=== PATIENT | female | born 1965 | race Caucasian/White ===

== ENCOUNTER 2018-10-25 11:33 | Emergency (ER) | payer SELFPAY ==
[2018-10-25] MEDS ORDERED: IPRATROPIUM/ALBUTEROL 0.5-2.5 MG/3 ML AMPUL NEB ONE (11:57)
[2018-10-25] MEDS ORDERED: LIDOCAINE 1% INJ-PF (10 MG/ML) 30 ML SDV NEB ONE (11:57)
[2018-10-25] MEDS ORDERED: PREDNISONE 20 MG TABLET PO ONE (11:58)
--- NOTE | 2018-10-25 12:08 | ER Document Report ---
ED General - General Chief Complaint: Cough Stated Complaint: DIFFICULTY BREATHING Time Seen by Provider: 10/25/18 11:57 Primary Care Provider: ALINA MARIO [Primary Care Provider] - Follow up as needed TRAVEL OUTSIDE OF THE [place] IN LAST 30 DAYS: No - HPI Patient complains to provider of: Cough difficulty breathing Notes: Patient coming in for evaluation of cough difficulty breathing. Patient states ongoing for approximately a week no fevers. P patient states no recent antibiotics. Patient states she has taken the prednisone at home that she had l jonelle around. Patient denies any recent travel patient states she has been smoking since she was 16 however has stopped in the last week. Patient states no flu shots. Patient otherwise resting comfortably upon being evaluated in ER no signs of air hunger no signs of respiratory distress. - Related Data Allergies/Adverse Reactions: acetaminophen [From Vicodin] Allergy (Verified 10/25/18 11:56) hydrocodone [From Vicodin] Allergy (Verified 10/25/18 11:56) Past Medical History - Social History Smoking Status: Current Every Day Smoker Family History: Reviewed & Not Pertinent Patient has suicidal ideation: No Patient has homicidal ideation: No Renal/ Medical History: Denies: Hx Peritoneal Dialysis Review of Systems - Review of Systems Constitutional: No symptoms reported EENT: No symptoms reported Cardiovascular: No symptoms reported Respiratory: Cough, Short of breath Gastrointestinal: No symptoms reported Genitourinary: No symptoms reported Female Genitourinary: No symptoms reported Musculoskeletal: No symptoms reported Skin: No symptoms reported Hematologic/Lymphatic: No symptoms reported Neurological/Psychological: No symptoms reported Physical Exam - Vital signs Vitals: Temp Pulse Resp BP Pulse Ox 99.1 F 68 20 177/96 H 95 10/25/18 11:41 10/25/18 11:41 10/25/18 11:41 10/25/18 11:41 10/25/18 11:41 Course - Re-evaluation Re-evalutation: 10/25/18 15:09 Chest x-ray showed no sign pneumonia flu test did return positive for flu type A. Recommend the patient stop smoking continue with prednisone for her underlying wheezing albuterol for difficulty breathing and wheezing as well. Patient was given a list of primary care physicians is to return to ER if symptoms worsen - Vital Signs Vital signs: Temp Pulse Resp BP Pulse Ox 99.1 F 68 20 177/96 H 95 10/25/18 11:41 10/25/18 11:41 10/25/18 11:41 10/25/18 11:41 10/25/18 11:41 Discharge - Discharge Clinical Impression: Influenza A, History of smoking Condition: Good Instructions: Influenza ([facility]) [id number], Bronchitis With Bronchospasm (Wheezing) ([facility]), Family Physicians / Practices Additional Instructions: Please use the inhaler every gave you here in ER 2 puffs every 2-4 hours as needed for shortness of breath he may try Tessalon Perles to help with cough. I would also recommend [id number] honey. Chest x-ray today did not show any signs of pneumonia but her swabs did return positive for flu type A. Please take Tylenol and Motrin for pain and fever. Please expect to continue with a cough for the next 2 weeks fevers and chills for the next 5-7 days. If you feel like you are getting worse follow-up with your primary care physician return to the ER. Please that the steroids as prescribed. Prescriptions: Benzonatate [Tessalon Perle 100 mg Capsule] 100 mg PO Q8HP PRN #40 cap PRN Reason: Prednisone [Deltasone] 60 mg PO DAILY #24 tablet Forms: Return to Work Referrals: LOCALMD,NO [Primary Care Provider] - Follow up as needed
[2018-10-25 12:39] LABS: A TYPE INFLUENZA AG POSITIVE (NEGATIVE)
[2018-10-25 12:40] LABS: B INFLUENZA AG NEGATIVE (NEGATIVE)
[2018-10-25] MEDS ORDERED: AZITHROMYCIN 250 MG TABLET PO ONE (12:45)
[2018-10-25] MEDS ORDERED: ALBUTEROL SULFATE HFA (90 MCG/PUFF) 8 GM MDI (1 MDI/ER DISP) IH ONE (12:45)
--- NOTE | 2018-10-25 12:49 | RADIOLOGY REPORT (SQ) ---
EXAM DESCRIPTION: CHEST 2 VIEWS COMPLETED DATE/TIME: 10/25/2018 12:40 pm REASON FOR STUDY: sob COMPARISON: None. EXAM PARAMETERS: NUMBER OF VIEWS: two views TECHNIQUE: Digital Frontal and Lateral radiographic views of the chest acquired. RADIATION DOSE: NA LIMITATIONS: none FINDINGS: LUNGS AND PLEURA: No opacities, masses or pneumothorax. No pleural effusion. MEDIASTINUM AND HILAR STRUCTURES: No masses or contour abnormalities. HEART AND VASCULAR STRUCTURES: Heart normal size. No evidence for failure. BONES: No acute findings. HARDWARE: None in the chest. OTHER: No other significant finding. IMPRESSION: NO ACUTE RADIOGRAPHIC FINDING IN THE CHEST. TECHNICAL DOCUMENTATION: JOB ID: [id number] [email or web address]- All Rights Reserved Reading location - IP/workstation name: [email or web address]
[2018-10-25 13:16] VITALS: BP 168/83
== END 2018-10-25 13:16 | disposition home or self-care (01) ==
LOC: ER 11:33
DX: J11.1 Influenza due to unidentified influenza virus with other respiratory manifestations (principal); R06.00 Dyspnea, unspecified; F17.200 Nicotine dependence, unspecified, uncomplicated; Z88.6 Allergy status to analgesic agent
CPT/HCPCS: 94640; 99283; 87804; 71046; J3490 ×2; J7512; J7620

== ENCOUNTER → 2019-02-10 | Outpatient (CLI) | payer BC ==
--- NOTE | 2019-02-10 23:37 | EKG REPORT ---
SEVERITY:- BORDERLINE ECG - SINUS RHYTHM BORDERLINE INFERIOR Q WAVES : Confirmed by: Stephen Murphy 10-Feb-2019 23:37:22
[2019-02-13 10:16] LABS: ALANINE AMINOTRANSFERASE 20 U/L (9-52); ALBUMIN 4.1 g/dL (3.5-5.0); ALKALINE PHOSPHATASE 102 U/L (38-126); ANION GAP 7 (5-19); ASPARTATE AMINO TRANSFERASE 16 U/L (14-36); BILIRUBIN,DIRECT 0.3 mg/dL (0.0-0.4); BILIRUBIN,TOTAL 0.5 mg/dL (0.2-1.3); BLOOD UREA NITROGEN 10 mg/dL (7-20); CALCIUM 9.2 mg/dL (8.4-10.2); CARBON DIOXIDE 29 mmol/L (22-30); CHLORIDE 106 mmol/L (98-107); CHOLESTEROL 245.26 mg/dL (0-200); GLUCOSE 88 mg/dL (75-110); POTASSIUM 5.1 mmol/L (3.6-5.0); SODIUM 142.2 mmol/L (137-145); TRIGLYCERIDES 237 mg/dL (<150)
[2019-02-13 10:27] LABS: DIRECT LDL 177 mg/dL (<100)
[2019-02-13 10:32] LABS: VLDL CHOLESTEROL 47.4 mg/dL (10-31)
== END ==
LOC: OD 17:10
PROVIDERS: ATTEND Nurse Practitioner Family
DX: E78.2 Mixed hyperlipidemia (principal); I10 Essential (primary) hypertension; I20.8 Other forms of angina pectoris; K21.9 Gastro-esophageal reflux disease without esophagitis
CPT/HCPCS: 36415; 80053; 80061; 83036; 84443; 93005; 93010

== ENCOUNTER 2019-03-05 23:01 | Inpatient (IN) | payer BC ==
[2019-03-05] MEDS ORDERED: ASPIRIN 81 MG TABLET, CHEWABLE PO ONE (23:16)
--- NOTE | 2019-03-05 23:25 | ER Document Report ---
ED Medical Screen (RME) - General Chief Complaint: Chest Pain Stated Complaint: CHEST PAIN Time Seen by Provider: 03/05/19 23:14 Primary Care Provider: NISSA CABALLERO FNP-C [Primary Care Provider] - Follow up as needed Mode of Arrival: Ambulatory Information source: Patient Notes: 53-year-old female presents to ED for complaint of chest pain or shortness of breath for about an hour at this time. She states she has a cardiac history. She denies any COPD or asthma. Patient is alert oriented respirations 26 with O2 sats of 94-97, blood pressure is elevated, pulse 92. Afebrile. Lungs clear to auscultation. Patient is alert oriented ambulating with a even steady gait. She states she has never had a [place] yet. I have greeted and performed a rapid initial assessment of this patient. A comprehensive ED assessment and evaluation of the patient, analysis of test results and completion of medical decision making process will be conducted by an additional ED providers. Dictation of this chart was performed using voice recognition software; therefore, there may be some unintended grammatical errors. TRAVEL OUTSIDE OF THE [place] IN LAST 30 DAYS: No - Related Data Allergies/Adverse Reactions: acetaminophen [From Vicodin] Allergy (Verified 03/05/19 23:02) hydrocodone [From Vicodin] Allergy (Verified 03/05/19 23:02) Past Medical History Renal/ Medical History: Denies: Hx Peritoneal Dialysis Physical Exam - Vital signs Vitals: Temp Pulse Resp BP Pulse Ox 98.6 F 92 26 H 189/104 H 94 03/05/19 23:12 03/05/19 23:12 03/05/19 23:12 03/05/19 23:12 03/05/19 23:12 Course - Vital Signs Vital signs: Temp Pulse Resp BP Pulse Ox 98.6 F 92 26 H 189/104 H 94 03/05/19 23:12 03/05/19 23:12 03/05/19 23:12 03/05/19 23:12 03/05/19 23:12 Doctor's Discharge - Discharge Referrals: NISSA CABALLERO FNP-C [Primary Care Provider] - Follow up as needed
--- NOTE | 2019-03-05 23:31 | EKG REPORT ---
SEVERITY:- ABNORMAL ECG - SINUS TACHYCARDIA NONSPECIFIC REPOL ABNORMALITY, DIFFUSE LEADS BORDERLINE PROLONGED QT INTERVAL : Confirmed by: Stewart Castle MD 05-Mar-2019 23:30:47
[2019-03-06 00:10] LABS: ABSOLUTE LYMPHOCYTES (AUTO) 0.9 10^3/uL (0.5-4.7); ABSOLUTE NEUT (AUTO) 2.7 10^3/uL (1.7-8.2); BASOPHILS % (AUTO) 0.1 % (0-2); EOSINOPHILS % (AUTO) 0.2 % (0-6); HEMATOCRIT 34.8 % (36.0-47.0); HEMOGLOBIN 11.3 g/dL (12.0-15.5); LYMPHOCYTES % (AUTO) 24.2 % (13-45); MEAN CORPUSCULAR HEMOGLOBIN 25.2 pg (27.0-33.4); MEAN CORPUSCULAR HGB CONC 32.5 g/dL (32.0-36.0); MEAN CORPUSCULAR VOLUME 78 fl (80-97); MONOCYTES % (AUTO) 0.3 % (3-13); PLATELET COUNT 248 10^3/uL (150-450); RED BLOOD COUNT 4.48 10^6/uL (3.72-5.28); SEGMENTED NEUTROPHILS % (AUTO) 75.2 % (42-78); TOTAL CELLS COUNTED % (AUTO) 100 %; WHITE BLOOD COUNT 3.6 10^3/uL (4.0-10.5)
[2019-03-06 00:18] LABS: APPEARANCE,URINE CLEAR; BILIRUBIN,URINE NEGATIVE (NEGATIVE); COLOR,URINE STRAW; GLUCOSE, URINE NEGATIVE (NEGATIVE); KETONES,URINE NEGATIVE (NEGATIVE); LEUKOCYTE ESTERASE,URINE NEGATIVE (NEGATIVE); NITRITE,URINE NEGATIVE (NEGATIVE); PROTEIN,URINE 100 mg/dL (NEGATIVE); URINE SPECIFIC GRAVITY 1.011; UROBILINOGEN,URINE NEGATIVE mg/dL (<2.0)
--- NOTE | 2019-03-06 00:28 | RADIOLOGY REPORT (SQ) ---
EXAM DESCRIPTION: XR CHEST 2 VIEWS COMPLETED DATE/TME: 03/05/2019 23:15 CLINICAL HISTORY: 53 years, Female, chest pain short of breath for an hour COMPARISON: 10/25/2018 chest NUMBER OF VIEWS: 2 TECHNIQUE: 2 view chest LIMITATIONS: None. FINDINGS: Heart size normal. Atheromatous change thoracic aorta. Osteopenia. Mild interstitial edema.. No pneumothorax. IMPRESSION: Mild interstitial edema. copyright 2010 [employer]- All Rights Reserved
[2019-03-06 00:34] LABS: ALANINE AMINOTRANSFERASE 19 U/L (9-52); ALBUMIN 3.8 g/dL (3.5-5.0); ALKALINE PHOSPHATASE 99 U/L (38-126); ANION GAP 9 (5-19); ASPARTATE AMINO TRANSFERASE 15 U/L (14-36); BILIRUBIN,DIRECT 0.2 mg/dL (0.0-0.4); BILIRUBIN,TOTAL 0.4 mg/dL (0.2-1.3); BLOOD UREA NITROGEN 13 mg/dL (7-20); CALCIUM 9.1 mg/dL (8.4-10.2); CARBON DIOXIDE 22 mmol/L (22-30); CHLORIDE 107 mmol/L (98-107); GLUCOSE 118 mg/dL (75-110); POTASSIUM 3.3 mmol/L (3.6-5.0); SODIUM 138.4 mmol/L (137-145); TOTAL PROTEIN 6.5 g/dL (6.3-8.2)
[2019-03-06 00:46] LABS: TROPONIN I 0.019 ng/mL
[2019-03-06 00:50] LABS: CREATINE KINASE MB 0.77 ng/mL (<4.55)
[2019-03-06] MEDS ORDERED: FUROSEMIDE INJ/PF 40 MG/4 ML SDV IV ONE (02:52)
[2019-03-06] MEDS ORDERED: POTASSIUM CHLORIDE 10 MEQ CAPSULE.ER PO ONE (03:11)
[2019-03-06] MEDS ORDERED: ACETAMINOPHEN 325 MG TABLET PO ONE (03:19)
[2019-03-06] MEDS: NITROGLYCERIN 0.4 MG/TAB 25 TAB/BOTTLE SL PRN ×3 (03:25→03:44)
[2019-03-06] MEDS ORDERED: NITROGLYCERIN/D5W 50 MG/250 ML RTUINJ IV PRN ×2 (04:40→05:59)
[2019-03-06] MEDS ORDERED: ENOXAPARIN SODIUM INJ 120 MG/0.8 ML DISP.SYRIN SUBCUT ONE (04:40)
--- NOTE | 2019-03-06 05:09 | ER Document Report ---
ED General - General Chief Complaint: Chest Pain Stated Complaint: CHEST PAIN Time Seen by Provider: 03/05/19 23:14 Primary Care Provider: NISSA CABALLERO FNP-C [Primary Care Provider] - Follow up as needed Mode of Arrival: Ambulatory Notes: 53-year-old female presents emergency department complaining of sudden onset of shortness of breath and chest pain associated with a nonproductive cough this evening around 10 PM while she was texting something getting ready for bed. Patient states that she coughed until she vomited, did not see any blood. Describes the pain as a stabbing squeezing pain in her chest similar to a charley horse associated with shortness of breath admits chills, denies fevers. Admits feeling like she stops breathing in the middle of night and is undergoing a work-up for sleep apnea and possible CPAP usage. Does not currently carry that diagnosis nor does she use that device. She does admit a history of congestive heart failure. Patient states she has run out of her medications and was supposed to get them refilled today. States she has a history of congestive heart failure however she is no longer taking Lasix and is not supposed to be taking Lasix. Patient had a cardiac catheterization last year in [place] and states that it did not show any need for stents at the time. Denies any history of heart attack but admits history of stroke. Has a family history of heart attacks as well. TRAVEL OUTSIDE OF THE [place] IN LAST 30 DAYS: No - Related Data Allergies/Adverse Reactions: hydrocodone [From Vicodin] Allergy (Verified 03/06/19 02:21) Past Medical History - General Information source: Patient - Social History Smoking Status: Former Smoker - Quit 6 months ago. Frequency of alcohol use: Occasional Drug Abuse: None Family History: CAD - Both parents from heart attacks. Patient has suicidal ideation: No Patient has homicidal ideation: No - Past Medical History Cardiac Medical History: Reports: Hx Congestive Heart Failure, Hx Hypercholesterolemia, Hx Hypertension Neurological Medical History: Reports: Hx Cerebrovascular Accident Renal/ Medical History: Denies: Hx Peritoneal Dialysis Past Surgical History: Reports: Hx Genitourinary Surgery - bladder suspension, Hx Hysterectomy, Hx Orthopedic Surgery - elbow Review of Systems - Review of Systems Constitutional: No symptoms reported EENT: No symptoms reported Cardiovascular: See HPI Respiratory: See HPI Gastrointestinal: See HPI -: Yes All other systems reviewed and negative Physical Exam - Vital signs Vitals: Temp Pulse Resp BP Pulse Ox 98.6 F 92 26 H 189/104 H 94 03/05/19 23:12 03/05/19 23:12 03/05/19 23:12 03/05/19 23:12 03/05/19 23:12 Interpretation: Hypertensive, Tachypneic - Notes Notes: GENERAL: Alert, interacts well. Appears somewhat anxious and uncomfortable but is able to speak without any difficulty. HEAD: Normocephalic, atraumatic EYES: Pupils equal, round and reactive to light, extraocular movements intact. ENT: Oral mucosa moist, tongue midline. NECK: Full range of motion, supple, trachea midline. LUNGS: Clear to auscultation bilaterally, no wheezes, rales or rhonchi, somewhat tachypneic but does not appear to be in acute respiratory distress. HEART: Regular rate and rhythm, no murmurs, gallops, rubs. ABDOMEN: Soft, nontender, nondistended, bowel sounds present in all 4 quadrants. EXTREMITIES: Moves all 4 extremities spontaneously, 1+ pitting edema to the bilateral lower extremities, radial and dorsalis pedis pulses 2/4 bilaterally. No cyanosis. NEUROLOGICAL: Alert and oriented x3, normal speech. PSYCH: Normal mood, normal affect. SKIN: Warm, Dry, no rashes or lesions noted. Course - Re-evaluation Re-evalutation: 03/06/19 05:46 Patient's chest pain is down to 1/5 nitroglycerin, breathing has improved somewhat, she is placed on BiPAP and started on a nitro drip. I am concerned for unstable angina so she has been given a shot of Lovenox as well. CBC shows slight low white blood cell count of 3.6, hemoglobin is anemic with a hemoglobin 11.3, platelets are normal, CMP shows low potassium at 3.3, this is repleted by mouth, initial troponin was negative at 0.019, this was repeated approximately 3-1/2 hours later was 0.047 which is indeterminate, proBNP elevated at 930 despite the fact that her lung sounds are actually very clear, no crackles noted at the bases, chest x-ray shows mild interstitial edema. Urinalysis unremarkable. EKG is nonischemic. Discussed patient with Dr. Isaac who agrees to patient the patient in the ICU on the nitroglycerin drip and continue to trend her enzymes and her EKGs. - Vital Signs Vital signs: Temp Pulse Resp BP Pulse Ox 99.1 F 92 21 H 136/65 H 97 03/06/19 04:36 03/05/19 23:12 03/06/19 05:16 03/06/19 05:16 03/06/19 05:16 - Laboratory Result Diagrams: 03/05/19 23:39 03/05/19 23:39 Laboratory results interpreted by me: 03/05/19 03/05/19 03/05/19 23:39 23:39 23:39 WBC 3.6 L Hgb 11.3 L Hct 34.8 L MCV 78 L MCH 25.2 L RDW 16.0 H Monocytes % 0.3 L Absolute Monocytes 0.0 L Potassium 3.3 L Glucose 118 H NT-Pro-B Natriuret Pep 930 H Urine Protein 03/05/19 23:39 WBC Hgb Hct MCV MCH RDW Monocytes % Absolute Monocytes Potassium Glucose NT-Pro-B Natriuret Pep Urine Protein 100 H - EKG Interpretation by Me Additional EKG results interpreted by me: 03/06/19 05:47 Initial EKG shows sinus tachycardia at a rate of 101, normal axis, normal intervals, no ST segment elevations or depressions, T wave inversions noted in 3 and aVL per my interpretation. Repeat EKG shows sinus rhythm at a rate of 87, normal axis, prolonged QT interval, no ST segment elevations or depressions, there are T wave inversions noted in lead III, T wave flattening is noted in aVF, per my interpretation. Critical Care Note - Critical Care Note Total time excluding time spent on procedures (mins): 40 Discharge - Discharge Clinical Impression: Unstable angina Congestive heart failure Qualifiers: Heart failure type: unspecified Heart failure chronicity: acute Qualified Code(s): I50.9 - Heart failure, unspecified Condition: Fair Disposition: ADMITTED INPATIENT Admitting Provider: Marlin (Hospitalist) Unit Admitted: ICU Referrals: NISSA CABALLERO FNP-C [Primary Care Provider] - Follow up as needed
[2019-03-06] MEDS ORDERED: MAGNESIUM HYDROXIDE SUSP 30 ML UDCUP PO PRN (06:02)
[2019-03-06] MEDS ORDERED: LEVALBUTEROL HCL NEB 0.63 MG/3 ML AMPUL NEB PRN (06:02)
[2019-03-06] MEDS ORDERED: MAG HYDROX/AL HYDROX/SIMETH SUSP 30 ML UDCUP PO PRN (06:02)
[2019-03-06 06:56] LABS: FREE T3 4.91 pg/mL (2.77-5.27); FREE T4 (FREE THYROXINE) 1.22 ng/dL (0.78-2.19)
[2019-03-06] MEDS ORDERED: KETOROLAC TROMETHAMINE INJ/PF 30 MG/1 ML SDV IV PRN (07:00)
--- NOTE | 2019-03-06 07:10 | PDOC H&P ---
History of Present Illness Admission Date/PCP: 03/06/2019 05:02 NEYMAR SANTOYO Patient complains of: Chest pain History of Present Illness: MERY NUNN is a 53 year old female who presented to the emergency room with acute chest pain. She admits that at approximately 10 PM while getting ready for bed she developed sudden onset of dyspnea with a severe cough which progressed to posttussive emesis and then she abruptly developed a severe, constant, nonradiating, sharp-squeezing midsternal chest pain. Patient denies prior similar episodes and has not identified any aggravating or ameliorating factors for her chest pain. In the emergency room she was found to have a slightly elevated troponin which was repeated and was trending upward. She was also noted to have an elevated BNP and her electrocardiogram showed no evidence of acute myocardial ischemia or injury. She was treated with sublingual nitroglycerin which improved her chest pain but did not resolve it. She was subsequently placed on a nitroglycerin infusion with her pain maintained at a 1/5 level. She was subsequently admitted to the ICU for further evaluation and treatment. Past Medical History Cardiac Medical History: Reports: Congestive Heart Failure, Hyperlipidema, Hypertension Denies: Atrial Fibrillation, Coronary Artery Disease, DVT, Myocardial Infarction, Pulmonary Embolism Pulmonary Medical History: Reports: Sleep Apnea - Probable but sleep study is still pending Denies: Asthma, Chronic Obstructive Pulmonary Disease (COPD), Respiratory Failure EENT Medical History: Denies: Cataracts, Ears - Hearing aids Neurological Medical History: Denies: Hemorrhagic CVA, Ischemic CVA, Seizures Endocrine Medical History: Reports: Obesity Denies: Diabetes Mellitus Type 1, Diabetes Mellitus Type 2, Hyperthyroidism, Hypothyroidism Renal/ Medical History: Denies: Chronic Kidney Disease, Nephrolithiasis Malignancy Medical History: Reports: None GI Medical History: Denies: Cirrhosis, Crohn's Disease, Hepatitis, Ulcerative Colitis Musculoskeltal Medical History: Denies: Arthritis, Gout Skin Medical History: Denies: Eczema, Psoriasis Psychiatric Medical History: Reports: Tobacco Dependency Denies: Alcohol Dependency, Substance Abuse Traumatic Medical History: Reports: None Hematology: Denies: Anemia, Bleeding Tendencies Infectious Medical History: Reports: None Past Surgical History Past Surgical History: Reports: Hysterectomy, Orthopedic Surgery - elbow Social History Information Source: Patient Lives with: Alone Smoking Status: Former Smoker Frequency of Alcohol Use: None Hx Recreational Drug Use: No Drugs: None Hx Prescription Drug Abuse: No - Advance Directive Resuscitation Status: Full Code Surrogate healthcare decision maker:: Refuses to name medical decision making surrogate at this time. Family History Family History: Hypertension Parental Family History Reviewed: Yes Children Family History Reviewed: No Sibling(s) Family History Reviewed.: Yes Medication/Allergy Home Medications: Unobtainable 03/06/19 Allergies/Adverse Reactions: hydrocodone [From Vicodin] Allergy (Verified 03/06/19 02:21) Review of Systems Constitutional: ABSENT: chills, fever(s) Eyes: ABSENT: visual disturbances, other - Eye pain Ears: ABSENT: hearing changes, other - Ear pain Nose, Mouth, and Throat: ABSENT: mouth pain, sore throat Cardiovascular: PRESENT: as per HPI, chest pain. ABSENT: dyspnea on exertion, edema, orthropnea, palpitations Respiratory: PRESENT: as per HPI, cough, dyspnea Gastrointestinal: PRESENT: as per HPI, vomiting. ABSENT: abdominal pain, constipation, diarrhea, nausea Genitourinary: ABSENT: dysuria, hematuria Integumentary: ABSENT: pruritus, rash Neurological: ABSENT: confusion, convulsions, focal weakness, memory loss, syncope Psychiatric: ABSENT: anxiety, depression Endocrine: ABSENT: cold intolerance, heat intolerance Hematologic/Lymphatic: ABSENT: easy bleeding, easy bruising Physical Exam Vital Signs: Temp Pulse Resp BP Pulse Ox 99.1 F 92 18 134/65 H 95 03/06/19 04:36 03/05/19 23:12 03/06/19 05:36 03/06/19 05:36 03/06/19 05:36 Intake & Output 03/04/19 03/05/19 03/06/19 23:59 23:59 23:59 Output Total 500 Balance -500 Weight 113.1 kg General appearance: PRESENT: no acute distress, cooperative, obese Head exam: PRESENT: atraumatic, normocephalic Eye exam: ABSENT: conjunctival injection, scleral icterus Ear exam: PRESENT: normal external ear exam. ABSENT: bleeding, drainage Mouth exam: PRESENT: dry mucosa, neck supple Neck exam: ABSENT: thyromegaly, tracheal deviation Respiratory exam: PRESENT: chest wall tenderness - Severe sternal chest pain on palpation reproduces the pain of her chief complaint., clear to auscultation estefany, symmetrical, unlabored Cardiovascular exam: PRESENT: RRR. ABSENT: clicks, gallop, rubs Pulses: PRESENT: normal radial pulses, normal dorsalis pedis pul Vascular exam: PRESENT: normal capillary refill. ABSENT: pallor GI/Abdominal exam: PRESENT: normal bowel sounds, soft Rectal exam: PRESENT: deferred Extremities exam: ABSENT: joint swelling, pedal edema Musculoskeletal exam: PRESENT: full ROM, normal inspection Neurological exam: PRESENT: alert, oriented to person, oriented to place, oriented to time, oriented to situation, CN II-XII grossly intact. ABSENT: motor sensory deficit Psychiatric exam: PRESENT: appropriate affect, normal mood Skin exam: PRESENT: dry, intact - [id number], warm. ABSENT: jaundice, rash, urticaria Results Laboratory Results: 03/05/19 23:39 03/05/19 23:39 03/05/19 03/05/19 03/05/19 23:39 23:39 23:39 WBC 3.6 L RBC 4.48 Hgb 11.3 L Hct 34.8 L MCV 78 L MCH 25.2 L MCHC 32.5 RDW 16.0 H Plt Count 248 Seg Neutrophils % 75.2 Lymphocytes % 24.2 Monocytes % 0.3 L Eosinophils % 0.2 Basophils % 0.1 Absolute Neutrophils 2.7 Absolute Lymphocytes 0.9 Absolute Monocytes 0.0 L Absolute Eosinophils 0.0 Absolute Basophils 0.0 Sodium 138.4 Potassium 3.3 L Chloride 107 Carbon Dioxide 22 Anion Gap 9 BUN 13 Creatinine 0.71 Est GFR ( Amer) > 60 Est GFR (Non-Af Amer) > 60 Glucose 118 H Calcium 9.1 Total Bilirubin 0.4 AST 15 ALT 19 Alkaline Phosphatase 99 Total Protein 6.5 Albumin 3.8 Urine Color STRAW Urine Appearance CLEAR Urine pH 5.0 Ur Specific [place] 1.011 Urine Protein 100 H Urine Glucose (UA) NEGATIVE Urine Ketones NEGATIVE Urine Blood NEGATIVE Urine Nitrite NEGATIVE Ur Leukocyte Esterase NEGATIVE Urine WBC (Auto) 2 Urine RBC (Auto) 0 03/05/19 03/06/19 23:39 03:10 CK-MB (CK-2) 0.77 Troponin I 0.019 0.047 NT-Pro-B Natriuret Pep 930 H Impressions: Chest X-Ray 03/05/19 23:15 IMPRESSION: Mild interstitial edema. copyright 2010 [employer]- All Rights Reserved Assessment and Plan - Diagnosis (1) Chest pain Qualifiers: Chest pain type: unspecified Qualified Code(s): R07.9 - Chest pain, unspecified Is this a current diagnosis for this admission?: Yes Plan: Patient will be placed in the ICU due to the fact that she is still having chest pain and is on a nitroglycerin infusion upon release from the emergency room. Patient has not received morphine or beta-blockers at this point. She does have a mildly elevated troponin with a slight up trend on second draw. Serial car diac enzymes and EKGs will be obtained for evaluation. Once patient was placed in the ICU she will be treated with morphine sulfate 2 to 4 mg IV every 2 hours as needed on a sliding scale basis for chest pain. She will also receive Toradol 30 mg IV every 6 hours as needed for her chest pain. (2) HTN (hypertension) Qualifiers: Hypertension type: essential hypertension Qualified Code(s): I10 - Essential (primary) hypertension Is this a current diagnosis for this admission?: Yes Plan: Patient will be returned to her regular antihypertensive regiment and her vital signs and blood pressure be monitored closely while she is on the telemetry unit. (3) HLD (hyperlipidemia) Qualifiers: Hyperlipidemia type: unspecified Qualified Code(s): E78.5 - Hyperlipidemia, unspecified Is this a current diagnosis for this admission?: Yes Plan: Lipid profile will be obtained to evaluate the patient's current status and efficacy of her current treatment. She will be continued on her recommended medical regiment with adjustments made as appropriate. (4) Congestive heart failure Qualifiers: Heart failure type: unspecified Heart failure chronicity: acute Qualified Code(s): I50.9 - Heart failure, unspecified Is this a current diagnosis for this admission?: Yes Plan: The patient will be resumed on her recommended congestive heart failure regimen. She has been out of her medication for "a while" and thought that her congestive heart failure "just got better". Daily CBC, metabolic profile and magnesium levels will be used to follow patient's disease course and effects of therapy. (5) Morbid obesity with BMI of 40.0-44.9, adult Is this a current diagnosis for this admission?: Yes Plan: At some point during her hospitalization a dietary consult can be obtained to aid the patient in appropriate dietary and lifestyle changes that will help bring about weight loss and improve her overall health and well-being. - Time Time Spent with patient: 25-34 minutes Medications reviewed and adjusted accordingly: Yes - He has been out of many of her home medications "for a while" Anticipated discharge: Home - Inpatient Certification Based on my medical assessment, after consideration of the patient's comorbi dities, presenting symptoms, or acuity I expect that the services needed warrant INPATIENT care.: Yes I certify that my determination is in accordance with my understanding of Medicare's requirements for reasonable and necessary INPATIENT services [42 CFR 412.3e].: Yes Medical Necessity: Significant Comorbidiites Make Outpatient Treatment Too Risky, Need Close Monitoring Due to Risk of Patient Decompensation, Need For Continuous Telemetry Monitoring, Need for Pain Control, Risk of Complication if Not Cared For in Hospital
[2019-03-06 07:18] LABS: CREATINE KINASE MB 1.08 ng/mL (<4.55); TROPONIN I 0.036 ng/mL
[2019-03-06] MEDS ORDERED: MAGNESIUM SULFATE 4 GM/100 ML RTUPB IV ONE (07:47)
--- NOTE | 2019-03-06 08:36 | EKG REPORT ---
SEVERITY:- ABNORMAL ECG - SINUS RHYTHM BORDERLINE T ABNORMALITIES, ANTERIOR LEADS PROLONGED QTC. ? ETIOLOGY : Confirmed by: Stewart Castle MD 06-Mar-2019 08:36:34
--- NOTE | 2019-03-06 08:38 | EKG REPORT ---
SEVERITY:- ABNORMAL ECG - SINUS RHYTHM PROBABLE LEFT VENTRICULAR HYPERTROPHY NONSPECIFIC ST CHANGES, DIFFUSE PROLONGED QT INTERVAL : Confirmed by: Stewart Castle MD 06-Mar-2019 08:37:47
[2019-03-06 08:55] LABS: ABSOLUTE BASOPHILS # (AUTO) 0.1 10^3/uL (0.0-0.2); ABSOLUTE LYMPHOCYTES (AUTO) 1.1 10^3/uL (0.5-4.7); ABSOLUTE MONOCYTES (AUTO) 0.1 10^3/uL (0.1-1.4); ABSOLUTE NEUT (AUTO) 11.6 10^3/uL (1.7-8.2); BASOPHILS % (AUTO) 0.4 % (0-2); EOSINOPHILS % (AUTO) 0.2 % (0-6); HEMATOCRIT 34.4 % (36.0-47.0); LYMPHOCYTES % (AUTO) 8.5 % (13-45); MEAN CORPUSCULAR HEMOGLOBIN 24.8 pg (27.0-33.4); MEAN CORPUSCULAR HGB CONC 32.1 g/dL (32.0-36.0); MEAN CORPUSCULAR VOLUME 77 fl (80-97); MONOCYTES % (AUTO) 0.8 % (3-13); PLATELET COUNT 228 10^3/uL (150-450); RED BLOOD COUNT 4.45 10^6/uL (3.72-5.28); RED CELL DISTRIBUTION WIDTH 15.8 % (11.5-14.0); SEGMENTED NEUTROPHILS % (AUTO) 90.1 % (42-78); TOTAL CELLS COUNTED % (AUTO) 100 %
[2019-03-06 08:57] LABS: WHITE BLOOD COUNT 12.9 10^3/uL (4.0-10.5)
[2019-03-06 09:02] LABS: ALANINE AMINOTRANSFERASE 15 U/L (9-52); ALBUMIN 3.7 g/dL (3.5-5.0); ALKALINE PHOSPHATASE 85 U/L (38-126); ANION GAP 9 (5-19); ASPARTATE AMINO TRANSFERASE 16 U/L (14-36); BILIRUBIN,DIRECT 0.2 mg/dL (0.0-0.4); BILIRUBIN,TOTAL 0.6 mg/dL (0.2-1.3); BLOOD UREA NITROGEN 13 mg/dL (7-20); CARBON DIOXIDE 24 mmol/L (22-30); CHLORIDE 104 mmol/L (98-107); GLUCOSE 97 mg/dL (75-110); POTASSIUM 4.1 mmol/L (3.6-5.0); SODIUM 136.8 mmol/L (137-145); TOTAL PROTEIN 6.2 g/dL (6.3-8.2)
[2019-03-06] MEDS: PANTOPRAZOLE SODIUM 40 MG TABLET.DR PO SCH ×2 (09:07→17:33)
[2019-03-06] MEDS: SPIRONOLACTONE 25 MG TABLET PO SCH (09:08)
[2019-03-06] MEDS: FONDAPARINUX SODIUM INJ 2.5 MG/0.5 ML DISP.SYRIN SUBCUT SCH (09:09)
--- NOTE | 2019-03-06 09:30 | Progress Note ---
Provider Note Provider Note: 03/06/[id number]-mhuk-old female with history of congestive heart failure, hypertension came with complaints of chest pain. It is reproducible chest pain. On gentle compression of the chest patient is complaining of pain. Initial troponin is 0.04 and subsequent troponin is 0.036. She is presently on Nitropaste. Blood pressure is 134/68 heart rate is 69 temperature 99.5. Alert and awake communicating well pulse ox is 95% on room air. Chest bilateral entry was a decreased no crackles no crepitations no wheezes CVS S1-S2 did with systolic murmur abdomen soft obese bowel sounds are present extremities 2+ pedal edema. Patient has Capellan's catheter. In my opinion patient go upstairs to IM for further management. In the labs WBC count is 12,900 hemoglobin is 11 platelet is 228. Chest x-ray shows mild interstitial edema.
[2019-03-06] MEDS ORDERED: (PENDING PHARMACY ID) (Amitriptyline Hcl [Elavil 100 Mg Tablet] 100 MG) PO SCH (10:00)
[2019-03-06] MEDS ORDERED: LISINOPRIL 10 MG TABLET PO SCH (10:00)
[2019-03-06] MEDS ORDERED: (PENDING PHARMACY ID) (Metoprolol Succinate [Metoprolol Succinate] 100 MG) PO SCH (10:00)
[2019-03-06] MEDS ORDERED: METOPROLOL SUCCINATE 25 MG TAB.SR.24H PO SCH (10:00)
[2019-03-06] MEDS ORDERED: (PENDING PHARMACY ID) (Enalapril Maleate [Vasotec 20 Mg Tablet] 20 MG) PO SCH (10:00)
--- NOTE | 2019-03-06 10:24 | PDOC CONSULTATION ---
Consultation Consult Date: 03/06/19 Provider Consulted: JORDANA MARQUEZ Consult reason:: chest pain History of Present Illness Admission Date/PCP: 03/06/19 06:07 NEYMAR SANTOYO History of Present Illness: MERY NUNN is a 53 year old female With past medical history of hypertension, cigarette smoking, obesity was admitted last night with complaints of chest pain. Patient claims that she woke up from her sleep feeling short of breath and started coughing violently after which she developed midsternal chest pain which brought her to the ER. At this time her pain has resolved but she does admit to multiple episodes of intermittent chest pains over the past few weeks which are not related to any exertion and can happen at any point and usually resolve on their own. She claims that last year she had a cardiac catheterization done in [place] where she was told that she had to 80% blockages but to be fixed they needed to be more than 90% per patient's description. She admits to shortness of breath on exertion as well as swelling in her lower extremities and is on diuretic therapy at home. She is and lives with her . She used to smoke half a pack of cigarettes a day but quit 3 months ago per patient. Denies alcohol abuse. Claims that both parents of a heart attack. Past Medical History Cardiac Medical History: Reports: Congestive Heart Failure, Hyperlipidema, Hypertension Denies: Atrial Fibrillation, Coronary Artery Disease, DVT, Myocardial Infarction, Pulmonary Embolism Pulmonary Medical History: Denies: Asthma, Chronic Obstructive Pulmonary Disease (COPD), Respiratory F ailure EENT Medical History: Denies: Cataracts, Ears - Hearing aids Neurological Medical History: Denies: Hemorrhagic CVA, Ischemic CVA, Seizures Endocrine Medical History: Reports: Obesity Denies: Diabetes Mellitus Type 1, Diabetes Mellitus Type 2, Hyperthyroidism, Hypothyroidism Renal/ Medical History: Denies: Chronic Kidney Disease, Nephrolithiasis Malignancy Medical History: Reports: None GI Medical History: Denies: Cirrhosis, Crohn's Disease, Hepatitis, Ulcerative Colitis Musculoskeltal Medical History: Denies: Arthritis, Gout Skin Medical History: Denies: Eczema, Psoriasis Psychiatric Medical History: Reports: Tobacco Dependency Denies: Alcohol Dependency, Substance Abuse Traumatic Medical History: Reports: None Hematology: Denies: Anemia, Bleeding Tendencies Infectious Medical History: Reports: None Past Surgical History Past Surgical History: Reports: Hysterectomy, Orthopedic Surgery - elbow Social History Lives with: Alone Smoking Status: Former Smoker Cigarettes Packs Per Day: 0.5 Frequency of Alcohol Use: Occasional Hx Recreational Drug Use: No Drugs: None Hx Prescription Drug Abuse: No - Advance Directive Resuscitation Status: Full Code Family History Family History: Hypertension Parental Family History Reviewed: Yes - Both parents had heart disease per patient. Children Family History Reviewed: No Sibling(s) Family History Reviewed.: No Medication/Allergy Home Medications: Amitriptyline HCl [Elavil 100 mg Tablet] 100 mg PO DAILY 03/06/19 Amlodipine Besylate [Norvasc 5 mg Tablet] 5 mg PO BID 03/06/19 Atorvastatin Calcium [Lipitor 40 mg Tablet] 40 mg PO QHS 03/06/19 Carbamazepine [Tegretol] 200 mg PO BID 03/06/19 Enalapril Maleate [Vasotec 20 mg Tablet] 20 mg PO DAILY 03/06/19 Hydrochlorothiazide [Hydrodiuril 50 mg Tablet] 50 mg PO QAM 03/06/19 Metoprolol Succinate 100 mg PO DAILY 03/06/19 Ranitidine HCl 150 mg PO BID 03/06/19 Allergies/Adverse Reactions: hydrocodone [From Vicodin] Allergy (Verified 03/06/19 02:21) Review of Systems Cardiovascular: PRESENT: chest pain, dyspnea on exertion, edema Respiratory: PRESENT: cough Physical Exam Vital Signs: Temp Pulse Resp BP Pulse Ox 99.5 F 63 18 134/68 H 95 03/06/19 06:56 03/06/19 08:57 03/06/19 08:57 03/06/19 06:56 03/06/19 08:57 Intake & Output 03/05/19 03/06/19 03/07/19 06:59 06:59 06:59 Intake Total 2 8 Output Total 500 Balance -498 8 Weight 112.5 kg General appearance: PRESENT: no acute distress, obese Head exam: PRESENT: atraumatic, normocephalic Mouth exam: PRESENT: neck supple Neck exam: PRESENT: full ROM Respiratory exam: PRESENT: clear to auscultation estefany, unlabored Cardiovascular exam: PRESENT: +S1, +S2, systolic murmur Pulses: PRESENT: normal radial pulses, normal dorsalis pedis pul, +2 pedal pulses bilateral GI/Abdominal exam: PRESENT: normal bowel sounds, soft Extremities exam: PRESENT: full ROM, pedal edema Neurological exam: PRESENT: alert, awake, oriented to time, reflexes normal, CN II-XII grossly intact Results Laboratory Results: 03/06/19 08:13 03/06/19 08:13 03/05/19 03/05/19 03/05/19 23:39 23:39 23:39 WBC 3.6 L RBC 4.48 Hgb 11.3 L Hct 34.8 L MCV 78 L MCH 25.2 L MCHC 32.5 RDW 16.0 H Plt Count 248 Seg Neutrophils % 75.2 Lymphocytes % 24.2 Monocytes % 0.3 L Eosinophils % 0.2 Basophils % 0.1 Absolute Neutrophils 2.7 Absolute Lymphocytes 0.9 Absolute Monocytes 0.0 L Absolute Eosinophils 0.0 Absolute Basophils 0.0 Sodium 138.4 Potassium 3.3 L Chloride 107 Carbon Dioxide 22 Anion Gap 9 BUN 13 Creatinine 0.71 Est GFR ( Amer) > 60 Est GFR (Non-Af Amer) > 60 Glucose 118 H Calcium 9.1 Magnesium Total Bilirubin 0.4 AST 15 ALT 19 Alkaline Phosphatase 99 Total Protein 6.5 Albumin 3.8 Free T4 Free T3 pg/mL Urine Color STRAW Urine Appearance CLEAR Urine pH 5.0 Ur Specific Dozier 1.011 Urine Protein 100 H Urine Glucose (UA) NEGATIVE Urine Ketones NEGATIVE Urine Blood NEGATIVE Urine Nitrite NEGATIVE Ur Leukocyte Esterase NEGATIVE Urine WBC (Auto) 2 Urine RBC (Auto) 0 03/05/19 03/06/19 03/06/19 23:39 03:10 08:13 WBC 12.9 H D RBC 4.45 Hgb 11.0 L Hct 34.4 L MCV 77 L MCH 24.8 L MCHC 32.1 RDW 15.8 H Plt Count 228 Seg Neutrophils % 90.1 H Lymphocytes % 8.5 L Monocytes % 0.8 L Eosinophils % 0.2 Basophils % 0.4 Absolute Neutrophils 11.6 H Absolute Lymphocytes 1.1 Absolute Monocytes 0.1 Absolute Eosinophils 0.0 Absolute Basophils 0.1 Sodium Potassium Chloride Carbon Dioxide Anion Gap BUN Creatinine Est GFR ( Amer) Est GFR (Non-Af Amer) Glucose Calcium Magnesium 1.4 L Total Bilirubin AST ALT Alkaline Phosphatase Total Protein Albumin Free T4 1.22 Free T3 pg/mL 4.91 Urine Color Urine Appearance Urine pH Ur Specific Dozier Urine Protein Urine Glucose (UA) Urine Ketones Urine Blood Urine Nitrite Ur Leukocyte Esterase Urine WBC (Auto) Urine RBC (Auto) 03/06/19 08:13 WBC RBC Hgb Hct MCV MCH MCHC RDW Plt Count Seg Neutrophils % Lymphocytes % Monocytes % Eosinophils % Basophils % Absolute Neutrophils Absolute Lymphocytes Absolute Monocytes Absolute Eosinophils Absolute Basophils Sodium 136.8 L Potassium 4.1 Chloride 104 Carbon Dioxide 24 Anion Gap 9 BUN 13 Creatinine 0.72 Est GFR ( Amer) > 60 Est GFR (Non-Af Amer) > 60 Glucose 97 Calcium 9.0 Magnesium Total Bilirubin 0.6 AST 16 ALT 15 Alkaline Phosphatase 85 Total Protein 6.2 L Albumin 3.7 Free T4 Free T3 pg/mL Urine Color Urine Appearance Urine pH Ur Specific Dozier Urine Protein Urine Glucose (UA) Urine Ketones Urine Blood Urine Nitrite Ur Leukocyte Esterase Urine WBC (Auto) Urine RBC (Auto) 03/05/19 03/06/19 03/06/19 23:39 03:10 03:10 Creatine Kinase CK-MB (CK-2) 0.77 Troponin I 0.019 0.047 NT-Pro-B Natriuret Pep 930 H 2110 H 03/06/19 03/06/19 03:10 06:30 Creatine Kinase 182 H CK-MB (CK-2) 1.08 Troponin I 0.036 NT-Pro-B Natriuret Pep Impressions: Chest X-Ray 03/05/19 23:15 IMPRESSION: Mild interstitial edema. copyright 2010 [employer]- All Rights Reserved Assessment & Plan - Diagnosis (1) Chest pain Qualifiers: Chest pain type: unspecified Qualified Code(s): R07.9 - Chest pain, unspecified Is this a current diagnosis for this admission?: Yes (3) Congestive heart failure Qualifiers: Heart failure type: unspecified Heart failure chronicity: acute Qualified Code(s): I50.9 - Heart failure, unspecified Is this a current diagnosis for this admission?: Yes (4) HTN (hypertension) Qualifiers: Hypertension type: essential hypertension Qualified Code(s): I10 - Essential (primary) hypertension Is this a current diagnosis for this admission?: Yes - Notes Notes: Reviewed labs, EKG and imaging tests done so far. 53-year-old female with multiple comorbidities and previous history of coronary artery disease noted on cardiac cath in 2018 admitted with chest pain with cardiac biomarkers negative so far for acute coronary syndrome. proBNP elevated and EKG shows sinus rhythm with nonspecific ST depression with no old EKG to compare with. Will recommend getting cardiac cath reports to evaluate her coronary anatomy. Agree with diuresis and guideline directed heart failure therapy with aspirin, statin, beta-ty, ACEI/ARB and long acting nitrate and monitoring intake output closely. Recommend to correct hypomagnesemia. Recommend transthoracic echocardiogram to evaluate systolic and diastolic function as well as look for any wall motion abnormalities and for ruling out aortic valve disease. If patient had significant coronary artery disease then would rather pursue an invasive coronary work-up but if she had mild CAD on last cardiac cath then would likely prefer noninvasive nuclear stress test. Patient educated about plan of care. We will follow closely with you. - Time Time Spent: 50 to 70 Minutes
[2019-03-06] MEDS ORDERED: CEFTRIAXONE 2 GM/D5W RTU 2 GM/50 ML RTUPB IV SCH (11:00)
[2019-03-06] MEDS: METOPROLOL SUCCINATE 50 MG TAB.SR.24H PO SCH (11:06)
[2019-03-06] MEDS: AMLODIPINE BESYLATE 5 MG TABLET PO SCH ×2 (11:36→21:19)
[2019-03-06] MEDS: AMITRIPTYLINE HCL 50 MG TABLET PO SCH (11:37)
[2019-03-06] MEDS: CARBAMAZEPINE 200 MG TABLET PO SCH ×2 (11:37→21:20)
[2019-03-06] MEDS: ENALAPRIL MALEATE 10 MG TABLET PO SCH (11:38)
[2019-03-06] MEDS: MORPHINE SULFATE 10 MG/ML INJ IV PRN (11:39)
[2019-03-06] MEDS: NITROGLYCERIN 2% OINTMENT 1 GM PACKET TP SCH ×3 (11:39→23:25)
[2019-03-06] MEDS: ACETAMINOPHEN 325 MG TABLET PO PRN (11:45)
[2019-03-06 12:50] LABS: CREATINE KINASE MB 0.98 ng/mL (<4.55); TROPONIN I 0.025 ng/mL
[2019-03-06] MEDS ORDERED: FUROSEMIDE 20 MG TABLET PO SCH (18:00)
[2019-03-06 18:57] LABS: CREATINE KINASE MB 0.96 ng/mL (<4.55); TROPONIN I 0.016 ng/mL
[2019-03-06] MEDS ORDERED: ATORVASTATIN CALCIUM 40 MG TABLET PO SCH (22:00)
[2019-03-06] MEDS ORDERED: AZITHROMYCIN INJ 500 MG VIAL IV PRN (23:45)
[2019-03-07] MEDS ORDERED: NITROGLYCERIN 15 MG (0.6 MG/1 HR) PATCH.TD24 TD ONE ×2 (00:01→19:45)
[2019-03-07] MEDS ORDERED: AZITHROMYCIN 500 MG in DEXTROSE 5%-WATER 250 ML IV SCH (01:00)
[2019-03-07] MEDS ORDERED: AZITHROMYCIN INJ 500 MG VIAL IV ONE (01:27)
[2019-03-07] MEDS: NITROGLYCERIN 2% OINTMENT 1 GM PACKET TP SCH ×3 (05:40→17:24)
[2019-03-07] MEDS: PANTOPRAZOLE SODIUM 40 MG TABLET.DR PO SCH ×2 (05:41→17:24)
[2019-03-07 05:59] LABS: HEMATOCRIT 32.1 % (36.0-47.0); HEMOGLOBIN 10.4 g/dL (12.0-15.5); MEAN CORPUSCULAR HEMOGLOBIN 25.1 pg (27.0-33.4); MEAN CORPUSCULAR HGB CONC 32.3 g/dL (32.0-36.0); MEAN CORPUSCULAR VOLUME 78 fl (80-97); PLATELET COUNT 209 10^3/uL (150-450); RED BLOOD COUNT 4.13 10^6/uL (3.72-5.28); RED CELL DISTRIBUTION WIDTH 16.4 % (11.5-14.0); WHITE BLOOD COUNT 7.7 10^3/uL (4.0-10.5)
[2019-03-07 06:21] LABS: ANION GAP 7 (5-19); BLOOD UREA NITROGEN 12 mg/dL (7-20); CALCIUM 8.7 mg/dL (8.4-10.2); CARBON DIOXIDE 26 mmol/L (22-30); CHLORIDE 105 mmol/L (98-107); CHOLESTEROL 182.89 mg/dL (0-200); GLUCOSE 102 mg/dL (75-110); SODIUM 138.2 mmol/L (137-145); TRIGLYCERIDES 236 mg/dL (<150)
[2019-03-07 06:26] LABS: POTASSIUM 4.1 mmol/L (3.6-5.0); VLDL CHOLESTEROL 47.2 mg/dL (10-31)
[2019-03-07 06:32] LABS: DIRECT LDL 120 mg/dL (<100)
[2019-03-07] MEDS ORDERED: HYDROCHLOROTHIAZIDE 50 MG TABLET PO SCH (08:00)
[2019-03-07] MEDS: FONDAPARINUX SODIUM INJ 2.5 MG/0.5 ML DISP.SYRIN SUBCUT SCH (08:44)
--- NOTE | 2019-03-07 09:31 | PDOC PROGRESS REPORT ---
Subjective Progress Note for:: 03/07/19 Subjective:: 53 year old female who presented to the emergency room with acute chest pain. She admits that at approximately 10 PM while getting ready for bed she developed sudden onset of dyspnea with a severe cough which progressed to posttussive emesis and then she abruptly developed a severe, constant, nonradiating, sharp- squeezing midsternal chest pain. Patient denies prior similar episodes and has not identified any aggravating or ameliorating factors for her chest pain. In the emergency room she was found to have a slightly elevated troponin which was repeated and was trending upward. She was also noted to have an elevated BNP and her electrocardiogram showed no evidence of acute myocardial ischemia or injury. She was treated with sublingual nitroglycerin which improved her chest pain but did not resolve it. She was subsequently placed on a nitroglycerin i nfusion with her pain maintained at a 1/5 level. She was subsequently admitted to the ICU for further evaluation and treatment. 03/07/[id number]-ftso-old female admitted with chest pain. Cardiac enzymes are negative. Initially she was in the ICU and transferred to [facility] yesterday. Comfortably in the bed communicating well. No acute events in the last 24 hours. Echocardiogram is pending. Cardiology consult was done. Reason For Visit: CHEST PAIN Physical Exam Vital Signs: Temp Pulse Resp BP Pulse Ox 98.6 F 58 L 16 152/74 H 96 03/07/19 03:54 03/07/19 07:00 03/07/19 03:54 03/07/19 03:54 03/07/19 03:54 Intake & Output 03/06/19 03/07/19 03/08/19 06:59 06:59 06:59 Intake Total 2 1328 Output Total 500 0205 Balance -498 -1541 Weight 112.5 kg 112.1 kg General appearance: PRESENT: no acute distress, obese Head exam: PRESENT: atraumatic Eye exam: PRESENT: PERRLA Mouth exam: PRESENT: moist, tongue midline Teeth exam: PRESENT: poor dentation Neck exam: ABSENT: carotid bruit, JVD, lymphadenopathy, thyromegaly Respiratory exam: PRESENT: decreased breath sounds Cardiovascular exam: PRESENT: RRR. ABSENT: diastolic murmur, rubs, systolic murmur GI/Abdominal exam: PRESENT: normal bowel sounds, soft. ABSENT: distended, guarding, mass, organolmegaly, rebound, tenderness Rectal exam: PRESENT: deferred Extremities exam: PRESENT: full ROM. ABSENT: calf tenderness, clubbing, pedal edema Neurological exam: PRESENT: alert, awake, oriented to person, oriented to place, oriented to time, oriented to situation, CN II-XII grossly intact. ABSENT: motor sensory deficit Psychiatric exam: PRESENT: appropriate affect, normal mood. ABSENT: homicidal ideation, suicidal ideation Results Laboratory Results: 03/07/19 04:58 03/07/19 04:58 03/06/19 03/07/19 03/07/19 18:15 04:58 04:58 WBC 7.7 RBC 4.13 Hgb 10.4 L Hct 32.1 L MCV 78 L MCH 25.1 L MCHC 32.3 RDW 16.4 H Plt Count 209 Sodium 138.2 Potassium 4.1 Chloride 105 Carbon Dioxide 26 Anion Gap 7 BUN 12 Creatinine 0.69 Est GFR ( Amer) > 60 Est GFR (Non-Af Amer) > 60 Glucose 102 Calcium 8.7 Magnesium 2.6 H D 2.0 Triglycerides 236 H Cholesterol 182.89 LDL Cholesterol Direct 120 H VLDL Cholesterol 47.2 H HDL Cholesterol 31 L TSH 03/07/19 04:58 WBC RBC Hgb Hct MCV MCH MCHC RDW Plt Count Sodium Potassium Chloride Carbon Dioxide Anion Gap BUN Creatinine Est GFR ( Amer) Est GFR (Non-Af Amer) Glucose Calcium Magnesium Triglycerides Cholesterol LDL Cholesterol Direct VLDL Cholesterol HDL Cholesterol TSH 1.12 03/05/19 03/06/19 03/06/19 23:39 03:10 03:10 Creatine Kinase CK-MB (CK-2) 0.77 Troponin I 0.019 0.047 NT-Pro-B Natriuret Pep 930 H 2110 H 03/06/19 03/06/19 03/06/19 03:10 06:30 12:04 Creatine Kinase 182 H 171 H CK-MB (CK-2) 1.08 Troponin I 0.036 NT-Pro-B Natriuret Pep 03/06/19 03/06/19 03/06/19 12:04 18:15 18:15 Creatine Kinase 147 H CK-MB (CK-2) 0.98 0.96 Troponin I 0.025 0.016 NT-Pro-B Natriuret Pep Impressions: Chest X-Ray 03/05/19 23:15 IMPRESSION: Mild interstitial edema. copyright 2010 [employer]- All Rights Reserved Assessment and Plan - Diagnosis (1) Chest pain Qualifiers: Chest pain type: unspecified Qualified Code(s): R07.9 - Chest pain, unspecified Is this a current diagnosis for this admission?: Yes Plan: Patient will be placed in the ICU due to the fact that she is still having chest pain and is on a nitroglycerin infusion upon release from the emergency room. Patient has not received morphine or beta-blockers at this point. She does have a mildly elevated troponin with a slight up trend on second draw. Serial cardiac enzymes and EKGs will be obtained for evaluation. Once patient was placed in the ICU she will be treated with morphine sulfate 2 to 4 mg IV every 2 hours as needed on a sliding scale basis for chest pain. She will also receive Toradol 30 mg IV every 6 hours as needed for her chest pain. 03/07/2019-patient is admitted with chest pain it is reproducible chest pain. Denies any chest pains this morning. Cardiac enzymes are negative. EKG as per elevator conductor shows nonspecific ST depression. Be waiting for the cardiac cath report from [place]. Patient comfortably in the bed communicating well. Waiting for echocardiogram to be done this morning. (2) Congestive heart failure Qualifiers: Heart failure type: unspecified Heart failure chronicity: acute Qualified Code(s): I50.9 - Heart failure, unspecified Is this a current diagnosis for this admission?: Yes Plan: The patient will be resumed on her recommended congestive heart failure regimen. She has been out of her medication for "a while" and thought that her congestive heart failure "just got better". Daily CBC, metabolic profile and magnesium levels will be used to follow patient's disease course and effects of therapy. 03/07/2019-patient is getting IV Lasix for congestive heart failure. Patient is on torsemide 20 mg p.o. daily. Latest BNP is 2160. Patient has a 1+ pedal edema improving. Echocardiogram was requested. (3) HTN (hypertension) Qualifiers: Hypertension type: essential hypertension Qualified Code(s): I10 - Essential (primary) hypertension Is this a current diagnosis for this admission?: Yes Plan: Patient will be returned to her regular antihypertensive regiment and her vital signs and blood pressure be monitored closely while she is on the telemetry unit. 03/07/2019-latest blood pressure is 152/74. Slightly elevated systolic blood pressure. He is to continue amlodipine 5 mg twice a day, enalapril 20 mg daily, torsemide 20 mg p.o. daily, metoprolol. (4) History of coronary artery disease Is this a current diagnosis for this admission?: Yes Plan: 03/07/2019-patient has history of coronary artery disease she has cardiac cath was done in [place] waiting for the reports. - Time Time Spent with patient: 25-34 minutes Medications reviewed and adjusted accordingly: Yes Anticipated discharge: Home
--- NOTE | 2019-03-07 10:11 | XCELERA REPORT ---
[address] [address] Transthoracic Echocardiogram Report Name: MERY NUNN Age: 53 yrs Gender: Female : 1965 Patient Status: Inpatient Patient Location: ICU^602^A Study Date: 03/06/2019 05:52 PM Height: 71 in Weight: 248 lb BSA: 2.3 m2 Reason For Study: chest pain Ordering Physician: MURALI MERCADO Performed By: Jorgito Felipe Interpretation Summary Study quality suboptimal with many poor images limiting detailed cardiac evaluation. Lack of contrast opacification limits evaluation for wall motion and ruling out intracardiac mass/thrombus. Probable moderate LVH with normal LVEF at 60-65%. RV not well visualized but Rv systolic function appears normal. The transmitral spectral Doppler flow pattern is abnormal for age Focally calcified AVnot well visualized but doppler data provided suggestive of mild aortic stenosis. RVSP could not be estimated. There is no pericardial effusion. IVC not well visualized but likely normal sized. The aortic root is normal size. MMode/2D Measurements & Calculations RVDd: 2.7 cm LVIDd: 4.9 cm FS: 37.2 % Ao root diam: 3.5 cm IVSd: 1.5 cm LVIDs: 3.1 cm EDV(Teich): 111.6 ml LVPWd: 1.4 cm ESV(Teich): 36.8 ml Ao root area: 9.4 cm2 LA dimension: 3.7 cm EF(Teich): 67.0 % LVOT diam: 2.4 cm LVOT area: 4.4 cm2 Doppler Measurements & Calculations MV E max ayesha: MV P1/2t max ayesha: Ao V2 max: LV V1 max P.2 cm/sec 103.7 cm/sec 260.8 cm/sec 6.4 mmHg MV A max ayesha: MV P1/2t: 97.6 msec Ao max PG: LV V1 max: 75.0 cm/sec MVA(P1/2t): 2.3 cm2 27.2 mmHg 126.4 cm/sec MV E/A: 1.3 MV dec slope: JOSE DAVID(V,D): 2.1 cm2 311.3 cm/sec2 MV dec time: 0.30 sec PA V2 max: MV P1/2t-pr_phl: 102.8 cm/sec 97.6 msec PA max P.2 mmHg Left Ventricle The left ventricular ejection fraction is normal. LV EF is 60-65%. The transmitral spectral Doppler flow pattern is abnormal for age. Right Ventricle The right ventricle is not well visualized secondary to technical limitations. The right ventricular systolic function is normal. Atria Right atrium not well visualized secondary to technical limitations. The left atrium is not well visualized secondary to technical limitations. No atrial dimensions provided. Mitral Valve MV leaflets appear focally thickened but open well. Aortic Valve The aortic valve is not well visualized secondary to technical limitations. The aortic valve is calcified. Peak AVmax 262 cm/sec. Mean PG 13.8 mm Hg. There is a peak gradient of 27 mm of Hg. Tricuspid Valve The tricuspid valve is not well visualized secondary to technical limitations. Tricuspid regurgitation jet envelope not well defined to measure RV systolic pressure accurately. RVSP could not be estimated. Pulmonic Valve The pulmonic valve is not well visualized. Great Vessels The aortic root is normal size. IVC not well visualized but likely normal sized. Effusions There is no pericardial effusion. : MURALI MERCADO > Murali Mercado
[2019-03-07] MEDS: SPIRONOLACTONE 25 MG TABLET PO SCH (11:47)
[2019-03-07] MEDS: AMLODIPINE BESYLATE 5 MG TABLET PO SCH (11:48)
[2019-03-07] MEDS: AMITRIPTYLINE HCL 50 MG TABLET PO SCH (11:49)
[2019-03-07] MEDS: METOPROLOL SUCCINATE 50 MG TAB.SR.24H PO SCH (11:50)
[2019-03-07] MEDS: TORSEMIDE 20 MG TABLET PO SCH (12:06)
[2019-03-07] MEDS: CARBAMAZEPINE 200 MG TABLET PO SCH ×2 (12:06→22:58)
[2019-03-07] MEDS: CEFTRIAXONE 1 GM/D5W RTU 1 GM/50 ML RTUPB IV SCH (12:07)
[2019-03-07] MEDS: ENALAPRIL MALEATE 10 MG TABLET PO SCH (12:08)
--- NOTE | 2019-03-07 13:15 | PDOC PROGRESS REPORT ---
Subjective Progress Note for:: 03/07/19 Reason For Visit: CHEST PAIN Patient seen at bedside and complains of overnight chest discomfort and is currently on a Nitropaste. We are still awaiting records from her previous c ardiac cath done last year in [place]. Physical Exam Vital Signs: Temp Pulse Resp BP Pulse Ox 98.5 F 58 L 18 152/57 H 99 03/07/19 11:07 03/07/19 11:07 03/07/19 11:07 03/07/19 11:07 03/07/19 11:07 Intake & Output 03/06/19 03/07/19 03/08/19 06:59 06:59 06:59 Intake Total 2 1328 360 Output Total 500 3560 700 Balance -498 -1547 -762 Weight 112.5 kg 112.1 kg General appearance: PRESENT: no acute distress Head exam: PRESENT: atraumatic, normocephalic Mouth exam: PRESENT: neck supple Neck exam: PRESENT: full ROM Respiratory exam: PRESENT: clear to auscultation estefany, unlabored Cardiovascular exam: PRESENT: +S1, +S2, systolic murmur Pulses: PRESENT: normal radial pulses, normal dorsalis pedis pul GI/Abdominal exam: PRESENT: normal bowel sounds, soft Extremities exam: PRESENT: full ROM Neurological exam: PRESENT: alert, awake, oriented to person, oriented to place, oriented to time, oriented to situation, CN II-XII grossly intact Results Laboratory Results: 03/07/19 04:58 03/07/19 04:58 03/06/19 03/07/19 03/07/19 18:15 04:58 04:58 WBC 7.7 RBC 4.13 Hgb 10.4 L Hct 32.1 L MCV 78 L MCH 25.1 L MCHC 32.3 RDW 16.4 H Plt Count 209 Sodium 138.2 Potassium 4.1 Chloride 105 Carbon Dioxide 26 Anion Gap 7 BUN 12 Creatinine 0.69 Est GFR ( Amer) > 60 Est GFR (Non-Af Amer) > 60 Glucose 102 Calcium 8.7 Magnesium 2.6 H D 2.0 Triglycerides 236 H Cholesterol 182.89 LDL Cholesterol Direct 120 H VLDL Cholesterol 47.2 H HDL Cholesterol 31 L TSH 03/07/19 04:58 WBC RBC Hgb Hct MCV MCH MCHC RDW Plt Count Sodium Potassium Chloride Carbon Dioxide Anion Gap BUN Creatinine Est GFR ( Amer) Est GFR (Non-Af Amer) Glucose Calcium Magnesium Triglycerides Cholesterol LDL Cholesterol Direct VLDL Cholesterol HDL Cholesterol TSH 1.12 03/05/19 03/06/19 03/06/19 23:39 03:10 03:10 Creatine Kinase CK-MB (CK-2) 0.77 Troponin I 0.019 0.047 NT-Pro-B Natriuret Pep 930 H 2110 H 03/06/19 03/06/19 03/06/19 03:10 06:30 12:04 Creatine Kinase 182 H 171 H CK-MB (CK-2) 1.08 Troponin I 0.036 NT-Pro-B Natriuret Pep 03/06/19 03/06/19 03/06/19 12:04 18:15 18:15 Creatine Kinase 147 H CK-MB (CK-2) 0.98 0.96 Troponin I 0.025 0.016 NT-Pro-B Natriuret Pep Impressions: Chest X-Ray 03/05/19 23:15 IMPRESSION: Mild interstitial edema. copyright 2010 [employer]- All Rights Reserved Assessment & Plan - Diagnosis (1) Chest pain Qualifiers: Chest pain type: unspecified Qualified Code(s): R07.9 - Chest pain, un specified Is this a current diagnosis for this admission?: Yes (2) History of coronary artery disease Is this a current diagnosis for this admission?: Yes (3) Congestive heart failure Qualifiers: Heart failure type: unspecified Heart failure chronicity: acute Qualified Code(s): I50.9 - Heart failure, unspecified Is this a current diagnosis for this admission?: Yes (4) HTN (hypertension) Qualifiers: Hypertension type: essential hypertension Qualified Code(s): I10 - Essential (primary) hypertension Is this a current diagnosis for this admission?: Yes - Notes Notes: Reviewed labs, telemetry and imaging tests. Patient with preserved LV ejection fraction on echocardiogram. Still awaiting records of her cardiac cath done last year. Review of telemetry shows short run of wide-complex rhythm limited by artifacts but appears to be ventricular tachycardia lasting 8 beats. Patient denies any symptoms during episode. Recommend addition of long-acting nitrate once Nitropaste discontinued in the form of isosorbide mononitrate. Continue patient on aspirin, statin, beta-ty, SHAQUILLE inhibitor and diuretic therapy. May need cardiac cath but will wait for records before making final decision. - Time Time with patient: 15-25 minutes
[2019-03-07] MEDS ORDERED: METOPROLOL SUCCINATE 50 MG TAB.SR.24H PO SCH (22:00)
[2019-03-07] MEDS: AZITHROMYCIN 500 MG in DEXTROSE 5%-WATER 250 ML IV SCH (22:58)
[2019-03-07] MEDS: ATORVASTATIN CALCIUM 80 MG TABLET PO SCH (22:58)
[2019-03-08] MEDS ORDERED: NITROGLYCERIN 15 MG (0.6 MG/1 HR) PATCH.TD24 TD ONE (01:30)
[2019-03-08] MEDS ORDERED: NITROGLYCERIN 15 MG (0.6 MG/1 HR) PATCH.TD24 ONE (02:13)
[2019-03-08] MEDS ORDERED: PIPERACILLIN/TAZOBACTAM 2.25 GM VIAL IV ONE (02:32)
[2019-03-08 05:48] LABS: HEMATOCRIT 31.8 % (36.0-47.0); HEMOGLOBIN 10.4 g/dL (12.0-15.5); MEAN CORPUSCULAR HEMOGLOBIN 25.3 pg (27.0-33.4); MEAN CORPUSCULAR HGB CONC 32.7 g/dL (32.0-36.0); MEAN CORPUSCULAR VOLUME 77 fl (80-97); PLATELET COUNT 189 10^3/uL (150-450); RED BLOOD COUNT 4.11 10^6/uL (3.72-5.28); WHITE BLOOD COUNT 7.6 10^3/uL (4.0-10.5)
[2019-03-08 06:14] LABS: ANION GAP 9 (5-19); BLOOD UREA NITROGEN 13 mg/dL (7-20); CALCIUM 8.8 mg/dL (8.4-10.2); CARBON DIOXIDE 27 mmol/L (22-30); CHLORIDE 103 mmol/L (98-107); GLUCOSE 94 mg/dL (75-110); POTASSIUM 4.2 mmol/L (3.6-5.0); SODIUM 139.4 mmol/L (137-145)
[2019-03-08] MEDS: PANTOPRAZOLE SODIUM 40 MG TABLET.DR PO SCH ×2 (07:08→16:52)
[2019-03-08] MEDS: FONDAPARINUX SODIUM INJ 2.5 MG/0.5 ML DISP.SYRIN SUBCUT SCH (08:15)
[2019-03-08] MEDS: ACETAMINOPHEN 325 MG TABLET PO PRN (08:18)
[2019-03-08] MEDS: ENALAPRIL MALEATE 10 MG TABLET PO SCH (09:11)
[2019-03-08] MEDS: AMITRIPTYLINE HCL 50 MG TABLET PO SCH (09:11)
[2019-03-08] MEDS: CEFTRIAXONE 1 GM/D5W RTU 1 GM/50 ML RTUPB IV SCH (09:11)
[2019-03-08] MEDS: SPIRONOLACTONE 25 MG TABLET PO SCH (09:11)
[2019-03-08] MEDS: TORSEMIDE 20 MG TABLET PO SCH (09:12)
[2019-03-08] MEDS: CARBAMAZEPINE 200 MG TABLET PO SCH ×2 (09:13→21:10)
[2019-03-08] MEDS: METOPROLOL SUCCINATE 50 MG TAB.SR.24H PO SCH ×2 (09:13→21:10)
[2019-03-08] MEDS ORDERED: NITROGLYCERIN 15 MG (0.6 MG/1 HR) PATCH.TD24 TD SCH (10:00)
--- NOTE | 2019-03-08 10:12 | PDOC PROGRESS REPORT ---
Subjective Progress Note for:: 03/08/19 Reason For Visit: CHEST PAIN Patient seen at bedside and complains of chest tightness overnight which has resolved now. We are still waiting for cardiac cath results from [place]. She has been ambulating to the bathroom and denies any chest discomfort this morning. Physical Exam Vital Signs: Temp Pulse Resp BP Pulse Ox 97.3 F 58 L 14 165/69 H 96 03/08/19 08:43 03/08/19 09:15 03/08/19 09:15 03/08/19 08:43 03/08/19 09:15 Intake & Output 03/07/19 03/08/19 03/09/19 06:59 06:59 06:59 Intake Total 1328 1670 Output Total 2875 4300 Balance -1547 -2630 Weight 112.1 kg 111.5 kg General appearance: PRESENT: no acute distress, obese Head exam: PRESENT: atraumatic, normocephalic Mouth exam: PRESENT: moist, neck supple Neck exam: PRESENT: full ROM Respiratory exam: PRESENT: clear to auscultation estefany, unlabored Cardiovascular exam: PRESENT: bradycardia, +S1, +S2 Pulses: PRESENT: normal radial pulses, normal dorsalis pedis pul, +2 pedal pulses bilateral Vascular exam: PRESENT: normal capillary refill GI/Abdominal exam: PRESENT: normal bowel sounds, soft Musculoskeletal exam: PRESENT: ambulatory, full ROM Neurological exam: PRESENT: alert, awake, oriented to time, oriented to situation, reflexes normal, CN II-XII grossly intact Results Laboratory Results: 03/08/19 05:04 03/08/19 05:04 03/08/19 03/08/19 05:04 05:04 WBC 7.6 RBC 4.11 Hgb 10.4 L Hct 31.8 L MCV 77 L MCH 25.3 L MCHC 32.7 RDW 16.0 H Plt Count 189 Sodium 139.4 Potassium 4.2 Chloride 103 Carbon Dioxide 27 Anion Gap 9 BUN 13 Creatinine 0.70 Est GFR ( Amer) > 60 Est GFR (Non-Af Amer) > 60 Glucose 94 Calcium 8.8 Magnesium 1.8 03/05/19 03/06/19 03/06/19 23:39 03:10 03:10 Creatine Kinase CK-MB (CK-2) 0.77 Troponin I 0.019 0.047 NT-Pro-B Natriuret Pep 930 H 2110 H 03/06/19 03/06/19 03/06/19 03:10 06:30 12:04 Creatine Kinase 182 H 171 H CK-MB (CK-2) 1.08 Troponin I 0.036 NT-Pro-B Natriuret Pep 03/06/19 03/06/19 03/06/19 12:04 18:15 18:15 Creatine Kinase 147 H CK-MB (CK-2) 0.98 0.96 Troponin I 0.025 0.016 NT-Pro-B Natriuret Pep Impressions: Chest X-Ray 03/05/19 23:15 IMPRESSION: Mild interstitial edema. copyright 2010 [employer]- All Rights Reserved Assessment & Plan - Diagnosis (1) Chest pain Qualifiers: Chest pain type: unspecified Qualified Code(s): R07.9 - Chest pain, unspecified Is this a current diagnosis for this admission?: Yes (2) History of coronary artery disease Is this a current diagnosis for this admission?: Yes (3) Congestive heart failure Qualifiers: Heart failure type: unspecified Heart failure chronicity: acute Qualified Code(s): I50.9 - Heart failure, unspecified Is this a current diagnosis for this admission?: Yes (4) HTN (hypertension) Qualifiers: Hypertension type: essential hypertension Qualified Code(s): I10 - Essential (primary) hypertension Is this a current diagnosis for this admission?: Yes - Notes Notes: Review telemetry and no tachyarrhythmias noted overnight. Still awaiting cardiac cath report from [place]. Patient with multiple risk factors for atherosclerotic cardiovascular disease with abnormal EKG and continued intermittent chest discomfort relieved with nitroglycerin. Will recommend interventional cardiology consult for consideration for cardiac cath tomorrow. Recommend up titration of antihypertensive therapy for optimizing blood pressure control. Recommend discontinuation of Capellan catheter as patient able to ambulate to the restroom. Continue patient on aspirin, statin, beta-ty, SHAQUILLE inhibitor, long-acting nitrate and diuretic therapy. - Time Time with patient: 15-25 minutes
--- NOTE | 2019-03-08 11:19 | PDOC PROGRESS REPORT ---
Subjective Progress Note for:: 03/08/19 Subjective:: 53 year old female who presented to the emergency room with acute chest pain. She admits that at approximately 10 PM while getting ready for bed she developed sudden onset of dyspnea with a severe cough which progressed to posttussive emesis and then she abruptly developed a severe, constant, nonradiating, sharp- squeezing midsternal chest pain. Patient denies prior similar episodes and has not identified any aggravating or ameliorating factors for her chest pain. In the emergency room she was found to have a slightly elevated troponin which was repeated and was trending upward. She was also noted to have an elevated BNP and her electrocardiogram showed no evidence of acute myocardial ischemia or injury. She was treated with sublingual nitroglycerin which improved her chest pain but did not resolve it. She was subsequently placed on a nitroglycerin i nfusion with her pain maintained at a 1/5 level. She was subsequently admitted to the ICU for further evaluation and treatment. [id number]-old female admitted with chest pain. Cardiac enzymes are negative. Initially she was in the ICU and transferred to [facility] yesterday. Comfortably in the bed communicating well. No acute events in the last 24 hours. Echocardiogram is pending. Cardiology consult was done. [id number]-old female admitted for chest pain. Cardiac enzymes are ne gative. Complaining of chest pain and we are waiting for the medical records from [place]. These medical records about previous cardiac cath. Dr. Bunch saw the patient this morning because she is continued to complain of chest pains plan to arrange for cardiac catheter tomorrow. Will follow his recommendations. Reason For Visit: CHEST PAIN Physical Exam Vital Signs: Temp Pulse Resp BP Pulse Ox 97.3 F 58 L 14 165/69 H 96 03/08/19 08:43 03/08/19 09:15 03/08/19 09:15 03/08/19 08:43 03/08/19 09:15 Intake & Output 03/07/19 03/08/19 03/09/19 06:59 06:59 06:59 Intake Total 1328 1670 Output Total 2875 4300 Balance -1547 -1940 Weight 112.1 kg 111.5 kg General appearance: PRESENT: no acute distress, obese Head exam: PRESENT: atraumatic Eye exam: PRESENT: PERRLA Ear exam: PRESENT: normal external ear exam Mouth exam: PRESENT: moist, tongue midline Teeth exam: PRESENT: poor dentation Neck exam: ABSENT: carotid bruit, JVD, lymphadenopathy, thyromegaly Respiratory exam: PRESENT: decreased breath sounds Cardiovascular exam: PRESENT: RRR. ABSENT: diastolic murmur, rubs, systolic murmur GI/Abdominal exam: PRESENT: normal bowel sounds, soft. ABSENT: distended, guarding, mass, organolmegaly, rebound, tenderness Rectal exam: PRESENT: deferred Gentrourinary exam: PRESENT: indwelling catheter Neurological exam: PRESENT: alert, awake, oriented to person, oriented to place, oriented to time, oriented to situation, CN II-XII grossly intact. ABSENT: motor sensory deficit Psychiatric exam: PRESENT: appropriate affect, normal mood. ABSENT: homicidal ideation, suicidal ideation Results Laboratory Results: 03/08/19 05:04 03/08/19 05:04 03/08/19 03/08/19 05:04 05:04 WBC 7.6 RBC 4.11 Hgb 10.4 L Hct 31.8 L MCV 77 L MCH 25.3 L MCHC 32.7 RDW 16.0 H Plt Count 189 Sodium 139.4 Potassium 4.2 Chloride 103 Carbon Dioxide 27 Anion Gap 9 BUN 13 Creatinine 0.70 Est GFR ( Amer) > 60 Est GFR (Non-Af Amer) > 60 Glucose 94 Calcium 8.8 Magnesium 1.8 03/05/19 03/06/19 03/06/19 23:39 03:10 03:10 Creatine Kinase CK-MB (CK-2) 0.77 Troponin I 0.019 0.047 NT-Pro-B Natriuret Pep 930 H 2110 H 03/06/19 03/06/19 03/06/19 03:10 06:30 12:04 Creatine Kinase 182 H 171 H CK-MB (CK-2) 1.08 Troponin I 0.036 NT-Pro-B Natriuret Pep 03/06/19 03/06/19 03/06/19 12:04 18:15 18:15 Creatine Kinase 147 H CK-MB (CK-2) 0.98 0.96 Troponin I 0.025 0.016 NT-Pro-B Natriuret Pep Impressions: Chest X-Ray 03/05/19 23:15 IMPRESSION: Mild interstitial edema. copyright 2010 [employer]- All Rights Reserved Assessment and Plan - Diagnosis (1) Chest pain Qualifiers: Chest pain type: unspecified Qualified Code(s): R07.9 - Chest pain, unspecified Is this a current diagnosis for this admission?: Yes Plan: Patient will be placed in the ICU due to the fact that she is still having chest pain and is on a nitroglycerin infusion upon release from the emergency room. Patient has not received morphine or beta-blockers at this point. She does have a mildly elevated troponin with a slight up trend on second draw. Serial cardiac enzymes and EKGs will be obtained for evaluation. Once patient was placed in the ICU she will be treated with morphine sulfate 2 to 4 mg IV every 2 hours as needed on a sliding scale basis for chest pain. She will also receive Toradol 30 mg IV every 6 hours as needed for her chest pain. 03/07/2019-patient is admitted with chest pain it is reproducible chest pain. Denies any chest pains this morning. Cardiac enzymes are negative. EKG as per hand outside cutter shows nonspecific ST depression. Be waiting for the cardiac cath report from [place]. Patient comfortably in the bed communicating well. Waiting for echocardiogram to be done this morning. 03/08/2019-patient came with chest pain still complaining of chest pains re producible chest pain. As per the patient she has cardiac cath was done in [place] we are waiting for the reports. She denies any stent placements. Dr. Licea evaluated the patient this morning and his recommendation is for cardiac cath tomorrow. Consult was placed for Dr. Florian. (2) Congestive heart failure Qualifiers: Heart failure type: unspecified Heart failure chronicity: acute Qualified Code(s): I50.9 - Heart failure, unspecified Is this a current diagnosis for this admission?: Yes Plan: The patient will be resumed on her recommended congestive heart failure regimen. She has been out of her medication for "a while" and thought that her congestive heart failure "just got better". Daily CBC, metabolic profile and magnesium levels will be used to follow patient's disease course and effects of therapy. 03/07/2019-patient is getting IV Lasix for congestive heart failure. Patient is on torsemide 20 mg p.o. daily. Latest BNP is 2160. Patient has a 1+ pedal edema improving. Echocardiogram was requested. 03/08/2019-patient has history of chronic systolic congestive heart rate. Presently on torsemide 20 mg p.o. daily. Pedal edema is improving. EF is 60 to 65% on the recent echo. (3) HTN (hypertension) Qualifiers: Hypertension type: essential hypertension Qualified Code(s): I10 - Essential (primary) hypertension Is this a current diagnosis for this admission?: Yes Plan: Patient will be returned to her regular antihypertensive regiment and her vital signs and blood pressure be monitored closely while she is on the telemetry unit. 03/07/2019-latest blood pressure is 152/74. Slightly elevated systolic blood pressure. He is to continue amlodipine 5 mg twice a day, enalapril 20 mg daily, torsemide 20 mg p.o. daily, metoprolol. 03/08/2019-patient's latest blood pressure is 152/76. Stable. Plan is to continue the present management at this time. (4) History of coronary artery disease Is this a current diagnosis for this admission?: Yes Plan: 03/07/2019-patient has history of coronary artery disease she has cardiac cath was done in [place] waiting for the reports. 03/08/2019-patient has history of coronary artery disease status post cardiac cath in [place]. Patient denies any stent placements at the time. Continues to have reproducible chest pain. She is scheduled for cardiac cath tomorrow. (5) Bradycardia Is this a current diagnosis for this admission?: Yes Plan: 03/08/2019-patient heart rate is 51 this morning receiving metoprolol 200 mg p.o. twice daily plan is to reduce the metoprolol to 100 mg every 12 hours from today. - Time Time Spent with patient: 25-34 minutes Medications reviewed and adjusted accordingly: Yes Anticipated discharge: Home
[2019-03-08] MEDS: ATORVASTATIN CALCIUM 80 MG TABLET PO SCH (21:10)
[2019-03-08] MEDS: AZITHROMYCIN 500 MG in DEXTROSE 5%-WATER 250 ML IV SCH (21:13)
[2019-03-09] MEDS: HYDRALAZINE HCL INJ/PF 20 MG/1 ML SDV IV PRN ×2 (03:59→14:51)
[2019-03-09] MEDS ORDERED: VERAPAMIL HCL 5 MG, LIDOCAINE HCL/PF 2 ML, NORMAL SALINE 6 ML in SYRINGE, DISPOSABLE, 1... IV PRN (05:00)
[2019-03-09] MEDS: PANTOPRAZOLE SODIUM 40 MG TABLET.DR PO SCH ×2 (05:15→17:42)
[2019-03-09 06:32] LABS: HEMATOCRIT 33.4 % (36.0-47.0); HEMOGLOBIN 11.1 g/dL (12.0-15.5); MEAN CORPUSCULAR HEMOGLOBIN 25.5 pg (27.0-33.4); MEAN CORPUSCULAR HGB CONC 33.3 g/dL (32.0-36.0); MEAN CORPUSCULAR VOLUME 77 fl (80-97); PLATELET COUNT 209 10^3/uL (150-450); RED BLOOD COUNT 4.35 10^6/uL (3.72-5.28); WHITE BLOOD COUNT 9.1 10^3/uL (4.0-10.5)
[2019-03-09] MEDS ORDERED: ONDANSETRON HCL INJ/PF 4 MG/2 ML SDV ONE (06:47)
[2019-03-09 07:04] LABS: ALANINE AMINOTRANSFERASE 19 U/L (9-52); ALBUMIN 3.8 g/dL (3.5-5.0); ALKALINE PHOSPHATASE 78 U/L (38-126); ANION GAP 10 (5-19); ASPARTATE AMINO TRANSFERASE 14 U/L (14-36); BILIRUBIN,DIRECT 0.3 mg/dL (0.0-0.4); BILIRUBIN,TOTAL 0.3 mg/dL (0.2-1.3); BLOOD UREA NITROGEN 15 mg/dL (7-20); CALCIUM 9.1 mg/dL (8.4-10.2); CARBON DIOXIDE 27 mmol/L (22-30); CHLORIDE 102 mmol/L (98-107); GLUCOSE 85 mg/dL (75-110); SODIUM 139.1 mmol/L (137-145); TOTAL PROTEIN 6.2 g/dL (6.3-8.2)
[2019-03-09] MEDS ORDERED: ONDANSETRON HCL INJ/PF 4 MG/2 ML SDV IV PRN (07:04)
[2019-03-09] MEDS: FONDAPARINUX SODIUM INJ 2.5 MG/0.5 ML DISP.SYRIN SUBCUT SCH (08:27)
--- NOTE | 2019-03-09 08:40 | PDOC PROGRESS REPORT ---
Subjective Progress Note for:: 03/09/19 Reason For Visit: CHEST PAIN Patient seen at bedside and complains of overnight chest discomfort but no acute chest pain at this time. Received medical records from [place] and she had a last cardiac cath in 2018 which showed mild nonobstructive LAD and RCA disease with moderate left circumflex disease. No mention of any IFR/FFR done. Physical Exam Vital Signs: Temp Pulse Resp BP Pulse Ox 97.4 F 45 L 20 162/84 H 96 03/09/19 03:54 03/09/19 07:00 03/09/19 03:54 03/09/19 03:54 03/09/19 03:54 Intake & Output 03/08/19 03/09/19 03/10/19 06:59 06:59 06:59 Intake Total 1670 1001 Output Total 4300 1150 Balance -2630 -149 Weight 111.5 kg 110.2 kg General appearance: PRESENT: no acute distress, obese Head exam: PRESENT: atraumatic, normocephalic Neck exam: PRESENT: full ROM Respiratory exam: PRESENT: clear to auscultation estefany, unlabored Cardiovascular exam: PRESENT: bradycardia, +S1, +S2 Pulses: PRESENT: normal radial pulses, normal dorsalis pedis pul GI/Abdominal exam: PRESENT: normal bowel sounds, soft Musculoskeletal exam: PRESENT: ambulatory Neurological exam: PRESENT: alert, awake, oriented to person, oriented to place, oriented to time, oriented to situation, CN II-XII grossly intact Results Laboratory Results: 03/09/19 05:33 03/09/19 05:33 03/09/19 03/09/19 05:33 05:33 WBC 9.1 RBC 4.35 Hgb 11.1 L Hct 33.4 L MCV 77 L MCH 25.5 L MCHC 33.3 RDW 16.0 H Plt Count 209 Sodium 139.1 Potassium 4.0 Chloride 102 Carbon Dioxide 27 Anion Gap 10 BUN 15 Creatinine 0.63 Est GFR ( Amer) > 60 Est GFR (Non-Af Amer) > 60 Glucose 85 Calcium 9.1 Magnesium 1.8 Total Bilirubin 0.3 AST 14 ALT 19 Alkaline Phosphatase 78 Total Protein 6.2 L Albumin 3.8 03/05/19 03/06/19 03/06/19 23:39 03:10 03:10 Creatine Kinase CK-MB (CK-2) 0.77 Troponin I 0.019 0.047 NT-Pro-B Natriuret Pep 930 H 2110 H 03/06/19 03/06/19 03/06/19 03:10 06:30 12:04 Creatine Kinase 182 H 171 H CK-MB (CK-2) 1.08 Troponin I 0.036 NT-Pro-B Natriuret Pep 03/06/19 03/06/19 03/06/19 12:04 18:15 18:15 Creatine Kinase 147 H CK-MB (CK-2) 0.98 0.96 Troponin I 0.025 0.016 NT-Pro-B Natriuret Pep Impressions: Chest X-Ray 03/05/19 23:15 IMPRESSION: Mild interstitial edema. copyright 2010 [employer]- All Rights Reserved Assessment & Plan - Diagnosis (1) Chest pain Qualifiers: Chest pain type: unspecified Qualified Code(s): R07.9 - Chest pain, unspecified Is this a current diagnosis for this admission?: Yes (2) History of coronary artery disease Is this a current diagnosis for this admission?: Yes (3) Congestive heart failure Qualifiers: Heart failure type: unspecified Heart failure chronicity: acute Qualified Code(s): I50.9 - Heart failure, unspecified Is this a current diagnosis for this admission?: Yes (4) HTN (hypertension) Qualifiers: Hypertension type: essential hypertension Qualified Code(s): I10 - Essential (primary) hypertension Is this a current diagnosis for this admission?: Yes - Notes Notes: Patient with moderate circumflex and mild LAD and RCA disease presenting with anginal sounding symptoms and due for cardiac cath today. Bradycardia will limit further up titration of beta-ty therapy. Consider adding amlodipine for better afterload reduction. Continue patient on aspirin, statin, beta- ty, SHAQUILLE inhibitor and diuretic therapy. Will review cardiac cath results later today. - Time Time with patient: 15-25 minutes
[2019-03-09] MEDS: SPIRONOLACTONE 25 MG TABLET PO SCH (10:28)
[2019-03-09] MEDS: TORSEMIDE 20 MG TABLET PO SCH (10:28)
[2019-03-09] MEDS: ENALAPRIL MALEATE 10 MG TABLET PO SCH (10:28)
[2019-03-09] MEDS: CARBAMAZEPINE 200 MG TABLET PO SCH ×2 (10:28→21:03)
[2019-03-09] MEDS: AMITRIPTYLINE HCL 50 MG TABLET PO SCH (10:28)
[2019-03-09] MEDS: CEFTRIAXONE 1 GM/D5W RTU 1 GM/50 ML RTUPB IV SCH (10:28)
[2019-03-09] MEDS: METOPROLOL SUCCINATE 50 MG TAB.SR.24H PO SCH ×2 (10:28→21:03)
[2019-03-09] MEDS ORDERED: FENTANYL CITRATE INJ/PF 100 MCG/2 ML AMPUL ONE (12:12)
[2019-03-09] MEDS ORDERED: MIDAZOLAM 2 MG/2 ML INJ ONE ×2 (12:12→12:47)
[2019-03-09] MEDS ORDERED: HEPARIN SODIUM,PORCINE/NS/PF 2,000 UNIT/1,000 ML RTUINJ IV ONE (12:13)
[2019-03-09] MEDS ORDERED: HEPARIN SOD (PORCINE) 1,000 UNIT/ML 10 ML VIAL ONE (12:13)
[2019-03-09] MEDS ORDERED: LIDOCAINE 1% INJ-PF (10 MG/ML) 30 ML SDV ONE (12:13)
--- NOTE | 2019-03-09 13:32 | Operative Report ---
Operative Report DATE OF SURGERY: 03/09/19 PREOPERATIVE DIAGNOSIS: Chest pain, dyspnea on exertion POSTOPERATIVE DIAGNOSIS: Hypertensive heart disease, nonobstructive hypertrophic cardiomyopathy OPERATION: Left heart catheterization, coronary angiography, left ventriculog iris SURGEON: KATTY CHU ANESTHESIA: Moderate Sedation PROCEDURE: After informed consent was obtained the patient was brought to the cardiac catheterization lab and the right wrist was prepared in usual sterile and draped manner. Hemodynamic access was gained using micropuncture technique and the patient was anticoagulated with heparin. An intra-arterial cocktail of verapamil and lidocaine was administered. Selective coronary angiography was performed with a [place] catheter. This was exchanged with pigtail catheter and left ventriculography was performed in standard CARMONA projection. The patient left the Cardiac Catheterization Lab in stable condition, with intact distal pulses and no chest pain or other complications from the procedure. Conscious sedation was initiated, monitored, and maintained during the procedure with the start time of 1245 and a completion time of 1305 for a total procedure time of 20 minutes. A total of 2 mg milligrams of Versed and 75 mcg fentanyl were used for conscious sedation. HEMODYNAMIC DATA: Aortic pressure to beginning the case is 185/73 post ventriculography LV pressure is 188/20 3 aortic pressure on pullback is 186/71 there is no gradient across the aortic valve CORONARY ANATOMY: [] ANGIOGRAPHY: [] VENTRICULOGRAPHY: Ventriculography is performed in the CARMONA projection and demonstrates [the left ventricle has a slipper shaped configuration which is consistent with nonobstructive hypertrophic cardiomyopathy and hypertensive heart disease regional wall motion is normal ejection fraction by area length method is calculated at 80% there is no evidence of mitral regurgitation] . CORONARY ANGIOGRAPHY: [] LEFT MAIN: [Left main is normal] LEFT ANTERIOR DESCENDING: The LAD is a transapical vessel gives rise to several several proximal diagonal vessels once again there are 20 to 30% luminal irregularities but no critical or obstructive lesions are present CIRCUMFLEX CORONARY: Circumflex coronary artery has 10 to 20% lesions but no high-grade obstructions RIGHT CORONARY ARTERY: [The right coronary artery is a large dominant vessel supplying the PDA and posterolateral branches there are minor middle irregularities but no critical or focal obstructive lesions are seen] IMPRESSION: [ 1. Noncritical coronary disease 2. No evidence of significant valvular heart disease 3. Hypertensive heart disease 4. Nonobstructive hypertrophic cardiomyopathy with slipper shaped ventricle variant]
[2019-03-09] MEDS: MORPHINE SULFATE 10 MG/ML INJ IV PRN ×3 (14:51→20:24)
--- NOTE | 2019-03-09 16:11 | PDOC PROGRESS REPORT ---
<EMMANUEL ROBISON - Last Filed: 03/09/19 16:06> Subjective Progress Note for:: 03/09/19 Subjective:: 53 Y/O female with PMH of CAD, HTN, CHF, hypercholesterolemia, Atrial fib, OR, PE, COPD, and respiratory failure who presented to the ED with c/o chest pain and dyspnea. The patient was evaluated s/p cardiac catheterization and was found to be eating lunch. She has a tr band in place, no hematoma or active bleeding noted to right hand. C/o pain at right wrist hand color pink and warm. Patient is in no acute distress. c/o mild chest pain rates a 2/10 that is reproducible with deep breathing that radiates to back. Denies nausea, shortness or breath or other needs. She reports that when she is home that she is awakened by shortness of breath that is causing her to gasp for air. She also reports feeling tired when she awakens in the morning and feeling tired throughout the day. Denies using a CPAP or having an official diagnosis of sleep apnea. Reports that she would like to go home if possible. ROS: Cardiovascular: chest pain, 2/10 reproducible with pain radiating to back Lungs: denies sob Abdmonial: no abdominal pain, nausea, vomiting, Reason For Visit: CHEST PAIN Physical Exam Vital Signs: Temp Pulse Resp BP Pulse Ox 98.4 F 56 L 18 184/73 H 97 03/09/19 14:43 03/09/19 14:43 03/09/19 14:43 03/09/19 14:43 03/09/19 14:43 Intake & Output 03/08/19 03/09/19 03/10/19 06:59 06:59 06:59 Intake Total 1670 1001 Output Total 4300 1150 Balance -2630 -149 Weight 111.5 kg 110.2 kg General appearance: PRESENT: no acute distress, well-developed, well-nourished Head exam: PRESENT: normocephalic Eye exam: PRESENT: conjunctiva pink Ear exam: PRESENT: normal external ear exam Mouth exam: PRESENT: moist Neck exam: PRESENT: full ROM Respiratory exam: PRESENT: clear to auscultation estefany, symmetrical Cardiovascular exam: PRESENT: +S1, +S2, systolic murmur Vascular exam: PRESENT: normal capillary refill GI/Abdominal exam: PRESENT: normal bowel sounds, soft Rectal exam: PRESENT: deferred Extremities exam: PRESENT: full ROM Neurological exam: PRESENT: alert, oriented to person, oriented to place, oriented to time Psychiatric exam: PRESENT: flat affect Skin exam: PRESENT: intact Results Laboratory Results: 03/09/19 05:33 03/09/19 05:33 03/09/19 03/09/19 05:33 05:33 WBC 9.1 RBC 4.35 Hgb 11.1 L Hct 33.4 L MCV 77 L MCH 25.5 L MCHC 33.3 RDW 16.0 H Plt Count 209 Sodium 139.1 Potassium 4.0 Chloride 102 Carbon Dioxide 27 Anion Gap 10 BUN 15 Creatinine 0.63 Est GFR ( Amer) > 60 Est GFR (Non-Af Amer) > 60 Glucose 85 Calcium 9.1 Magnesium 1.8 Total Bilirubin 0.3 AST 14 ALT 19 Alkaline Phosphatase 78 Total Protein 6.2 L Albumin 3.8 03/05/19 03/06/19 03/06/19 23:39 03:10 03:10 Creatine Kinase CK-MB (CK-2) 0.77 Troponin I 0.019 0.047 NT-Pro-B Natriuret Pep 930 H 2110 H 03/06/19 03/06/19 03/06/19 03:10 06:30 12:04 Creatine Kinase 182 H 171 H CK-MB (CK-2) 1.08 Troponin I 0.036 NT-Pro-B Natriuret Pep 03/06/19 03/06/19 03/06/19 12:04 18:15 18:15 Creatine Kinase 147 H CK-MB (CK-2) 0.98 0.96 Troponin I 0.025 0.016 NT-Pro-B Natriuret Pep Impressions: Chest X-Ray 03/05/19 23:15 IMPRESSION: Mild interstitial edema. copyright 2010 [employer]- All Rights Reserved Assessment and Plan - Diagnosis (1) SERENA (obstructive sleep apnea) Is this a current diagnosis for this admission?: No Plan: Highly suspicious that this patient has SERENA due to complaint of sudden awakening during sleep at night gasping for air; report of feeling like she hasnt't slept when awakens in the morning; & tiredeness throughout the day. (2) Bradycardia Is this a current diagnosis for this admission?: Yes Plan: Continue to monitor on telemetry, cardiology consulted and following. (3) Chest pain Qualifiers: Chest pain type: chest pain on breathing Qualified Code(s): R07.1 - Chest pain on breathing; R07.81 - Pleurodynia Is this a current diagnosis for this admission?: Yes Plan: 03/08/2019-patient came with chest pain still complaining of reproducible chest pain. As per patient cardiac cath was done in [place] results received. She denies any stent placements. (4) Congestive heart failure Qualifiers: Heart failure type: unspecified Heart failure chronicity: acute Qualified Code(s): I50.9 - Heart failure, unspecified Is this a current diagnosis for this admission?: Yes Plan: The patient will be resumed on her recommended congestive heart failure regimen. She has been out of her medication for "a while" and thought that her congestive heart failure "just got better". Daily CBC, metabolic profile and magnesium levels will be used to follow patient's disease course and effects of therapy. (5) HLD (hyperlipidemia) Qualifiers: Hyperlipidemia type: unspecified Qualified Code(s): E78.5 - Hyperlipidemia, unspecified Is this a current diagnosis for this admission?: Yes Plan: She will be continued on her recommended medical regiment with adjustments made as appropriate. (6) HTN (hypertension) Qualifiers: Hypertension type: essential hypertension Qualified Code(s): I10 - Essential (primary) hypertension Is this a current diagnosis for this admission?: Yes (7) History of coronary artery disease Is this a current diagnosis for this admission?: Yes - Time Time Spent with patient: 35 or more minutes Medications reviewed and adjusted accordingly: Yes Anticipated discharge: Home Within: within 24 hours <DANO COTA - Last Filed: 03/09/19 19:09> Subjective Subjective:: Agree with the HPI/Subjective/and ROS as above. Reason For Visit: CHEST PAIN Physical Exam Vital Signs: Temp Pulse Resp BP Pulse Ox 97.7 F 60 18 118/62 99 03/09/19 15:36 03/09/19 18:39 03/09/19 15:36 03/09/19 15:36 03/09/19 15:36 Intake & Output 03/08/19 03/09/19 03/10/19 06:59 06:59 06:59 Intake Total 1670 1001 Output Total 4300 1150 Balance -2630 -149 Weight 111.5 kg 110.2 kg General appearance: PRESENT: no acute distress, obese, well-developed, well- nourished Head exam: PRESENT: atraumatic, normocephalic Eye exam: PRESENT: conjunctiva pink, EOMI, PERRLA. ABSENT: scleral icterus Ear exam: PRESENT: normal external ear exam Mouth exam: PRESENT: moist, tongue midline Neck exam: PRESENT: full ROM. ABSENT: carotid bruit, JVD, lymphadenopathy, thyromegaly Respiratory exam: PRESENT: clear to auscultation estefany, symmetrical. ABSENT: rales, rhonchi, wheezes Cardiovascular exam: PRESENT: RRR, +S1, +S2, systolic murmur. ABSENT: diastolic murmur, rubs Pulses: PRESENT: normal radial pulses Vascular exam: PRESENT: normal capillary refill GI/Abdominal exam: PRESENT: normal bowel sounds, soft. ABSENT: distended, guarding, mass, organolmegaly, rebound, tenderness Rectal exam: PRESENT: deferred Extremities exam: PRESENT: full ROM. ABSENT: calf tenderness, clubbing, pedal edema Neurological exam: PRESENT: alert, awake, oriented to person, oriented to place, oriented to time, oriented to situation, CN II-XII grossly intact. ABSENT: motor sensory deficit Psychiatric exam: PRESENT: appropriate affect, normal mood. ABSENT: homicidal ideation, suicidal ideation Skin exam: PRESENT: dry, intact, warm. ABSENT: cyanosis, rash Results Laboratory Results: 03/09/19 05:33 03/09/19 05:33 03/09/19 03/09/19 05:33 05:33 WBC 9.1 RBC 4.35 Hgb 11.1 L Hct 33.4 L MCV 77 L MCH 25.5 L MCHC 33.3 RDW 16.0 H Plt Count 209 Sodium 139.1 Potassium 4.0 Chloride 102 Carbon Dioxide 27 Anion Gap 10 BUN 15 Creatinine 0.63 Est GFR ( Amer) > 60 Est GFR (Non-Af Amer) > 60 Glucose 85 Calcium 9.1 Magnesium 1.8 Total Bilirubin 0.3 AST 14 ALT 19 Alkaline Phosphatase 78 Total Protein 6.2 L Albumin 3.8 03/05/19 03/06/19 03/06/19 23:39 03:10 03:10 Creatine Kinase CK-MB (CK-2) 0.77 Troponin I 0.019 0.047 NT-Pro-B Natriuret Pep 930 H 2110 H 03/06/19 03/06/19 03/06/19 03:10 06:30 12:04 Creatine Kinase 182 H 171 H CK-MB (CK-2) 1.08 Troponin I 0.036 NT-Pro-B Natriuret Pep 03/06/19 03/06/19 03/06/19 12:04 18:15 18:15 Creatine Kinase 147 H CK-MB (CK-2) 0.98 0.96 Troponin I 0.025 0.016 NT-Pro-B Natriuret Pep Impressions: Chest X-Ray 03/05/19 23:15 IMPRESSION: Mild interstitial edema. copyright 2010 [employer]- All Rights Reserved Assessment and Plan - Diagnosis (1) Bradycardia Is this a current diagnosis for this admission?: Yes Plan: Patient with heart rate in the mid 50s to 60s; asymptomatic with activity. Thyroid panel is normal. EKG demonstrated sinus bradycardia. Cardiac cath today demonstrated 1. noncritical coronary disease, 2. no evidence of significant valvular disease, 3. hypertensive heart disease, 4. 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 Cardiology is consulted; appreciate their assistance. Discussed with cardiology today; Dr. Mercado recommends continuing home dose metoprolol. Avoid increased dose beta-blockers or addition of calcium channel blockers as able. (2) Chest pain Qualifiers: Chest pain type: chest pain on breathing Qualified Code(s): R07.1 - Chest pain on breathing; R07.81 - Pleurodynia Is this a current diagnosis for this admission?: Yes Plan: Chest score 3. EKG demonstrated sinus bradycardia. Cardiac cath today demonstrated 1. noncritical coronary disease, 2. no evidence of significant valvular disease, 3. hypertensive heart disease, 4. 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 Cardiology consulted; discussed with Dr. Mercado today. Have started Imdur 30 mg p.o. daily. Continue home medication regiment of Vasotec, metoprolol, spironolactone, and torsemide. Continue daily statin and aspirin therapy. (3) Congestive heart failure Qualifiers: Heart failure type: unspecified Heart failure chronicity: acute Qualified Code(s): I50.9 - Heart failure, unspecified Is this a current diagnosis for this admission?: Yes Plan: proBNP slightly elevated at 2110. Unclear baseline, though up from 930 at admission. Echocardiogram demonstrated LVEF 60 to 65% overall study was suboptimal with many poor images limiting detailed cardiac evaluation. Cardiac catheterization today is overall reassuring with ejection fraction estimated to be 80%. No evidence of active exacerbation at this time; lung sounds are clear, no dependent edema, and maintaining oxygen saturations on room air. Continue home medication regiment of Enalapril, metoprolol, torsemide, statin and aspirin therapy. Cardiac diet. Daily weights. (4) HLD (hyperlipidemia) Qualifiers: Hyperlipidemia type: unspecified Qualified Code(s): E78.5 - Hyperlipidemia, unspecified Is this a current diagnosis for this admission?: Yes Plan: Lipid panel confirms hyperlipidemia. Dietary discretion and lifestyle modifications are advised. Cardiac diet. Daily statin therapy. (5) HTN (hypertension) Qualifiers: Hypertension type: essential hypertension Qualified Code(s): I10 - Essential (primary) hypertension Is this a current diagnosis for this admission?: Yes Plan: History of hypertension; continues to have elevated blood pressures today of 184/73 this afternoon following cardiac catheterization. Cardiac diet. Continue home medication regiment of Enalapril, metoprolol, spironolactone and torsemide. Have started Imdur per cardiology's recommendations. (6) History of coronary artery disease Is this a current diagnosis for this admission?: Yes Plan: Management as above.
[2019-03-09] MEDS ORDERED: CEFTRIAXONE SODIUM 1,000 MG in DEXTROSE 5%-WATER 50 ML IV SCH (20:00)
[2019-03-09] MEDS: ATORVASTATIN CALCIUM 80 MG TABLET PO SCH (21:03)
[2019-03-10] MEDS: HYDRALAZINE HCL INJ/PF 20 MG/1 ML SDV IV PRN (00:17)
[2019-03-10] MEDS: PANTOPRAZOLE SODIUM 40 MG TABLET.DR PO SCH (05:02)
[2019-03-10] MEDS: FONDAPARINUX SODIUM INJ 2.5 MG/0.5 ML DISP.SYRIN SUBCUT SCH (08:42)
[2019-03-10] MEDS: ENALAPRIL MALEATE 10 MG TABLET PO SCH (09:24)
[2019-03-10] MEDS: SPIRONOLACTONE 25 MG TABLET PO SCH (09:25)
[2019-03-10] MEDS: METOPROLOL SUCCINATE 50 MG TAB.SR.24H PO SCH (09:25)
[2019-03-10] MEDS: CARBAMAZEPINE 200 MG TABLET PO SCH (09:25)
[2019-03-10] MEDS: TORSEMIDE 20 MG TABLET PO SCH (09:26)
[2019-03-10] MEDS: AMITRIPTYLINE HCL 50 MG TABLET PO SCH (09:33)
[2019-03-10] MEDS ORDERED: ISOSORBIDE MONONITRATE 30 MG TAB.ER.24H PO SCH (10:00)
[2019-03-10] MEDS ORDERED: HYDRALAZINE HCL 25 MG TABLET PO SCH (10:00)
[2019-03-10 13:12] VITALS: BP 162/65
--- NOTE | 2019-03-12 20:41 | PDOC DISCHARGE SUMMARY ---
General - Admit/Disc Date/PCP Admission Date/Primary Care Provider: 03/06/19 06:07 NISSA CABALLEROVALARIE-Ermias Discharge Date: 03/10/19 - Discharge Diagnosis (1) Bradycardia Is this a current diagnosis for this admission?: Yes Summary: Patient with heart rate in the mid 50s to 60s; asymptomatic with activity. Thyroid panel is normal. EKG demonstrated sinus bradycardia. Cardiac cath 03/09/19 demonstrated 1. noncritical coronary disease, 2. no evidence of significant valvular disease, 3. hypertensive heart disease, 4. 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 Cardiology was consulted; appreciate their assistance. Discussed with cardiology following cardiac cath; Dr. Mercado recommends continuing home dose metoprolol. Avoid increased dose beta-blockers or addition of calcium channel blockers. (2) Chest pain Is this a current diagnosis for this admission?: Yes Summary: Chest score 3. EKG demonstrated sinus bradycardia. Cardiac cath demonstrated 1. noncritical coronary disease, 2. no evidence of significant valvular disease, 3. hypertensive heart disease, 4. 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 Cardiology consulted; discussed with Dr. Mercado following cath. Patient was started Imdur 30 mg p.o. daily. Her home regiment of Vasotec, metoprolol, spironolactone, and torsemide is continued. Recommend continuing daily statin and aspirin therapy. Follow up with Dr. Mercado in 2 weeks. (3) Congestive heart failure Is this a current diagnosis for this admission?: Yes Summary: proBNP slightly elevated at 2110. Unclear baseline, though up from 930 at admission. Echocardiogram demonstrated LVEF 60 to 65% overall study was suboptimal with many poor images limiting detailed cardiac evaluation. Cardiac catheterization is overall reassuring with ejection fraction estimated to be 80%. No evidence of active exacerbation at this time; lung sounds are clear, no dep endent edema, and maintaining oxygen saturations on room air. Recommend continuing medications as above, following a cardiac diet, weighing daily, and follow up appointment with Dr. Mercado in 2 weeks. (4) HLD (hyperlipidemia) Is this a current diagnosis for this admission?: Yes Summary: Continue cardiac diet and daily statin therapy. (5) HTN (hypertension) Is this a current diagnosis for this admission?: Yes Summary: Improved blood pressures, though remain elevated. BP 181/104 on admission down to 162/65 at discharge. Antihypertensives as above. Keep cardiology follow up. (6) History of coronary artery disease Is this a current diagnosis for this admission?: Yes Summary: Evaluation and management as above. - Additional Information Resuscitation Status: Full Code Discharge Diet: Cardiac Discharge Activity: Activity As Tolerated, Balance Activity w/Rest, Weigh Daily Prescriptions: Hydralazine HCl [Apresoline 25 mg Tablet] 25 mg PO Q12 #60 tablet Isosorbide Mononitrate [Imdur 30 mg Tablet.er] 30 mg PO DAILY #30 tab.er.24h Pantoprazole Sodium [Protonix [address] Tablet] 40 mg PO DAILY #30 tablet.dr Spironolactone [Aldactone 25 mg Tablet] 25 mg PO DAILY #30 tablet Home Medications: Amitriptyline HCl [Elavil 100 mg Tablet] 100 mg PO DAILY 03/06/19 Atorvastatin Calcium [Lipitor 40 mg Tablet] 40 mg PO QHS 03/06/19 Carbamazepine [Tegretol] 200 mg PO BID 03/06/19 Enalapril Maleate [Vasotec 20 mg Tablet] 20 mg PO DAILY 03/06/19 Hydrochlorothiazide [Hydrodiuril 50 mg Tablet] 50 mg PO QAM 03/06/19 Metoprolol Succinate 100 mg PO DAILY 03/06/19 Acetaminophen [Tylenol 325 mg Tablet] 650 mg PO Q4HP PRN #0 tablet 03/10/19 Hydralazine HCl [Apresoline 25 mg Tablet] 25 mg PO Q12 #60 tablet 03/10/19 Isosorbide Mononitrate [Imdur 30 mg Tablet.er] 30 mg PO DAILY #30 tab.er.24h 03/10/19 Pantoprazole Sodium [Protonix [address] Tablet] 40 mg PO DAILY #30 tablet.dr 03/10/19 Spironolactone [Aldactone 25 mg Tablet] 25 mg PO DAILY #30 tablet 03/10/19 History of Present Illness History of Present Illness: H&P per Dr. Isaac: MERY NUNN is a 53 year old female who presented to the emergency room with acute chest pain. She admits that at approximately 10 PM while getting ready for bed she developed sudden onset of dyspnea with a severe cough which progressed to posttussive emesis and then she abruptly developed a severe, constant, nonradiating, sharp-squeezing midsternal chest pain. Patient denies prior similar episodes and has not identified any aggravating or ameliorating factors for her chest pain. In the emergency room she was found to have a slightly elevated troponin which was repeated and was trending upward. She was also noted to have an elevated BNP and her electrocardiogram showed no evidence of acute myocardial ischemia or injury. She was treated with sublingual nitroglycerin which improved her chest pain but did not resolve it. She was subsequently placed on a nitroglycerin infusion with her pain maintained at a 1/5 level. She was subsequently admitted to the ICU for further evaluation and treatment. Physical Exam Vital Signs: Temp Pulse Resp BP Pulse Ox 99.0 F 66 17 162/65 H 98 03/10/19 13:11 03/10/19 13:11 03/10/19 13:11 03/10/19 13:11 03/10/19 13:11 Intake & Output 03/11/19 03/12/19 03/13/19 06:59 06:59 06:59 Intake Total 222 Balance 222 General appearance: PRESENT: no acute distress, obese, well-developed, well- nourished Head exam: PRESENT: atraumatic, normocephalic Eye exam: PRESENT: conjunctiva pink, EOMI, PERRLA. ABSENT: scleral icterus Ear exam: PRESENT: normal external ear exam Mouth exam: PRESENT: moist, tongue midline Neck exam: ABSENT: carotid bruit, JVD, lymphadenopathy, thyromegaly Respiratory exam: PRESENT: clear to auscultation estefany. ABSENT: rales, rhonchi, wheezes Cardiovascular exam: PRESENT: RRR. ABSENT: diastolic murmur, rubs, systolic murmur Pulses: PRESENT: normal dorsalis pedis pul Vascular exam: PRESENT: normal capillary refill GI/Abdominal exam: PRESENT: normal bowel sounds, soft. ABSENT: distended, guarding, mass, organolmegaly, rebound, tenderness Rectal exam: PRESENT: deferred Extremities exam: PRESENT: full ROM. ABSENT: calf tenderness, clubbing, pedal edema Neurological exam: PRESENT: alert, awake, oriented to person, oriented to place, oriented to time, oriented to situation, CN II-XII grossly intact. ABSENT: motor sensory deficit Psychiatric exam: PRESENT: appropriate affect, normal mood. ABSENT: homicidal ideation, suicidal ideation Skin exam: PRESENT: dry, intact, warm. ABSENT: cyanosis, rash Results Laboratory Results: 03/09/19 05:33 03/09/19 05:33 03/05/19 03/06/19 03/06/19 23:39 03:10 03:10 Creatine Kinase CK-MB (CK-2) 0.77 Troponin I 0.019 0.047 NT-Pro-B Natriuret Pep 930 H 2110 H 03/06/19 03/06/19 03/06/19 03:10 06:30 12:04 Creatine Kinase 182 H 171 H CK-MB (CK-2) 1.08 Troponin I 0.036 NT-Pro-B Natriuret Pep 03/06/19 03/06/19 03/06/19 12:04 18:15 18:15 Creatine Kinase 147 H CK-MB (CK-2) 0.98 0.96 Troponin I 0.025 0.016 NT-Pro-B Natriuret Pep Impressions: Chest X-Ray 03/05/19 23:15 IMPRESSION: Mild interstitial edema. copyright 2010 [employer]- All Rights Reserved Qualifiers - * PATIENT BEING DISCHARGED WITH ANY OF THE FOLLOWING DIAGNOSIS: No Acute Heart Failure - Is this a Heart Failure Patient?: No Plan Discharge Plan: Follow-up with primary care provider within 1 week. Follow-up with Dr. Mercado within 2 weeks. Eat a low-sodium diet. Decrease tobacco and caffeine intake. Take medications as prescribed. Return to the emergency department as needed for concerning symptoms. Do not drive for 1 week. Do not lift anything heavier than 1 pound with your right hand for an additional 2 days. Report to the emergency department immediately for any swelling or bleeding from your right hand or wrist. Time Spent: Greater than 30 Minutes
== END 2019-03-10 13:50 | disposition home or self-care (01) | DRG 287 ==
LOC: ER 23:01 → EH 03-06 06:07 → ICU 03-06 06:42 → 3W 03-06 23:43
PROVIDERS: ADMIT Emergency Medicine; ATTEND Emergency Medicine
PROC: 4A023N7 Measurement of Cardiac Sampling and Pressure, Left Heart, Percutaneous Approach (ICD-10-PCS; principal; 2019-03-09)
PROC: B2111ZZ Fluoroscopy of Multiple Coronary Arteries using Low Osmolar Contrast (ICD-10-PCS; 2019-03-09)
PROC: B2151ZZ Fluoroscopy of Left Heart using Low Osmolar Contrast (ICD-10-PCS; 2019-03-09)
DX: I25.10 Atherosclerotic heart disease of native coronary artery without angina pectoris (principal); Z68.41 Body mass index [BMI] 40.0-44.9, adult; I42.2 Other hypertrophic cardiomyopathy; I11.0 Hypertensive heart disease with heart failure; I50.9 Heart failure, unspecified; E78.5 Hyperlipidemia, unspecified; E66.9 Obesity, unspecified; E83.42 Hypomagnesemia; E66.01 Morbid (severe) obesity due to excess calories; Z60.2 Problems related to living alone; Z87.891 Personal history of nicotine dependence; Z88.6 Allergy status to analgesic agent; Z79.899 Other long term (current) drug therapy; Z86.73 Personal history of transient ischemic attack (TIA), and cerebral infarction without residual deficits; Z82.49 Family history of ischemic heart disease and other diseases of the circulatory system
CPT/HCPCS: 36415; 71046; 80048; 80053; 80061; 80076; 81001; 82550; 82553; 82962; 83036; 83735; 83880; 84439; 84443; 84481; 84484; 85025; 85027; 93005; 93010; 93306; 93458; 94660; 96372; 96374; 99291; J0360; J0456; J0696; J1644; J1650; J1652; J1885; J1940; J2250; J2270; J2405; J3010; J3475; J3490; J7060

== ENCOUNTER → 2019-04-17 | Outpatient (CLI) | payer BC ==
[2019-04-17 09:39] LABS: ABSOLUTE BASOPHILS # (AUTO) 0.1 10^3/uL (0.0-0.2); ABSOLUTE EOSINOPHILS # (AUTO) 0.3 10^3/uL (0.0-0.6); ABSOLUTE LYMPHOCYTES (AUTO) 3.1 10^3/uL (0.5-4.7); ABSOLUTE MONOCYTES (AUTO) 0.4 10^3/uL (0.1-1.4); ABSOLUTE NEUT (AUTO) 5.7 10^3/uL (1.7-8.2); BASOPHILS % (AUTO) 0.9 % (0-2); EOSINOPHILS % (AUTO) 2.8 % (0-6); HEMATOCRIT 37.8 % (36.0-47.0); HEMOGLOBIN 12.2 g/dL (12.0-15.5); LYMPHOCYTES % (AUTO) 32.1 % (13-45); MEAN CORPUSCULAR HGB CONC 32.3 g/dL (32.0-36.0); MEAN CORPUSCULAR VOLUME 78 fl (80-97); MONOCYTES % (AUTO) 4.7 % (3-13); PLATELET COUNT 327 10^3/uL (150-450); RED BLOOD COUNT 4.87 10^6/uL (3.72-5.28); RED CELL DISTRIBUTION WIDTH 16.4 % (11.5-14.0); SEGMENTED NEUTROPHILS % (AUTO) 59.5 % (42-78); TOTAL CELLS COUNTED % (AUTO) 100 %; WHITE BLOOD COUNT 9.5 10^3/uL (4.0-10.5)
[2019-04-17 09:47] LABS: ALANINE AMINOTRANSFERASE 20 U/L (9-52); ALBUMIN 4.1 g/dL (3.5-5.0); ALKALINE PHOSPHATASE 102 U/L (38-126); ANION GAP 6 (5-19); ASPARTATE AMINO TRANSFERASE 20 U/L (14-36); BILIRUBIN,DIRECT 0.2 mg/dL (0.0-0.4); BILIRUBIN,TOTAL 0.4 mg/dL (0.2-1.3); BLOOD UREA NITROGEN 11 mg/dL (7-20); C-REACTIVE PROTEIN 5.7 mg/L (<10.0); CALCIUM 9.5 mg/dL (8.4-10.2); CARBON DIOXIDE 29 mmol/L (22-30); CHLORIDE 104 mmol/L (98-107); CHOLESTEROL 287.06 mg/dL (0-200); CREATINE KINASE 106 U/L (30-135); GLUCOSE 89 mg/dL (75-110); TOTAL PROTEIN 7.3 g/dL (6.3-8.2); TRIGLYCERIDES 416 mg/dL (<150)
[2019-04-17 09:56] LABS: DIRECT LDL 195 mg/dL (<100)
[2019-04-17 10:16] LABS: ERYTHROCYTE SEDIMENTATION RATE 39 mm/hr (0-30)
== END ==
LOC: OD 08:12
PROVIDERS: ATTEND Family Medicine
DX: D64.9 Anemia, unspecified (principal); E78.5 Hyperlipidemia, unspecified; I10 Essential (primary) hypertension; R22.1 Localized swelling, mass and lump, neck; R25.2 Cramp and spasm; Z12.11 Encounter for screening for malignant neoplasm of colon; Z13.29 Encounter for screening for other suspected endocrine disorder
CPT/HCPCS: 36415; 80053; 80061; 82550; 83735; 84443; 85025; 85652; 86140

== ENCOUNTER → 2019-05-19 | Outpatient (CLI) | payer BC ==
--- NOTE | 2019-05-19 12:05 | RADIOLOGY REPORT (SQ) ---
EXAM DESCRIPTION: CT SOFT TISSUE NECK WITH COMPLETED DATE/TIME: 05/19/2019 8:14 am REASON FOR STUDY: POLYPOID CORDITIS (J38.1) R13.10 DYSPHAGIA, UNSPECIFIED J38.1 POLYP OF VOCAL COR D AND LARYNX COMPARISON: Cookie swallow 05/19/2019 CT soft tissue neck 04/30/2009 Soft tissue neck plain films 06/20/2008 TECHNIQUE: Post IV contrasted scanning from skull base through lung apices with review of bone, soft tissue and lung windows. Reconstructed coronal and sagittal MPR images reviewed. All images stored on PACS. All CT scanners at this facility use dose modulation, iterative reconstruction, and/or weight based d osing when appropriate to reduce radiation dose to as low as reasonably achievable (ALARA). [facility]: Dose Right [facility]: CareDose [facility]: Dose Right [facility]: Teradose 4D [facility]: Odysii CONTRAST TYPE AND DOSE: contrast/concentration: Isovue 350.00 mg/ml; Total Contrast Delivered: 75.0 ml; Total Saline Delivered: 55.0 ml RENAL FUNCTION: Creatinine 0.7 RADIATION DOSE: 23.2 mGy . LIMITATIONS: None. FINDINGS: SKULL BASE: Intact. MAJOR SALIVARY GLANDS: No solid or cystic masses. No inflammatory changes. LYMPHADENOPATHY: No adenopathy. MUCOSAL MASSES OR ASYMMETRY: No mucosal masses or asymmetry. LARYNX/CORDS: No gross abnormalities. True and false cords are grossly normal by imaging. Symmetric aeration of the piriform recesses. VASCULAR STRUCTURES: The major vessels are patent. The right common carotid artery, carotid bifurcat ion, and cervical internal carotid artery are deviated medially into the prevertebral space, an anato luzma variant LUNG APICES: Clear. BONES: Intact. THYROID: Normal size. No masses. PARANASAL SINUSES: Clear. OTHER: No other significant finding. IMPRESSION: NO SIGNIFICANT FINDING IN THE SOFT TISSUES OF THE NECK. TECHNICAL DOCUMENTATION: JOB ID: [id number] Quality ID # [id number]: Final reports with documentation of one or more dose reduction techniques (e.g., Au tomated exposure control, adjustment of the mA and/or kV according to patient size, use of iterative reconstruction technique) 2010 [employer]- All Rights Reserved Reading location - IP/workstation name: [email or web address]
--- NOTE | 2019-05-19 13:11 | RADIOLOGY REPORT (SQ) ---
EXAM DESCRIPTION: BARIUM SWALLOW ESOPHAGUS COMPLETED DATE/TIME: 05/19/2019 9:10 am REASON FOR STUDY: DYSPHAGIA (R13.10) R13.10 DYSPHAGIA, UNSPECIFIED J38.1 POLYP OF VOCAL CORD AND L ARYNX COMPARISON: None. TECHNIQUE: Under fluoroscopic guidance, patient ingested effervescent granules followed by thick and thin barium. Fluoroscopic spot images and routine radiographic images acquired and stored on PACS. 12 MM BARIUM TABLET GIVEN: Barium tablet passed easily through the esophagus and into the stomach wit h minimal delay. LIMITATIONS: None. FLUOROSCOPY TIME: FLUORO TIME: 3.18 minutes 5 images saved to PACS. FINDINGS: NEUROMUSCULAR COORDINATION OF SWALLOW: Normal. No aspiration. ESOPHAGEAL MOTILITY: Normal peristalsis. No esophageal spasm. ESOPHAGEAL MUCOSA: Normal mucosa without masses or ulceration. GASTRO-ESOPHAGEAL JUNCTION: No hiatal hernia or reflux. NON-GI TRACT STRUCTURES: No significant finding. OTHER: No other significant finding. IMPRESSION: NORMAL DOUBLE CONTRAST BARIUM SWALLOW. RECOMMENDATION: None COMMENT: None Quality ID [id number]: Final reports for procedures using fluoroscopy that document radiation exposure cheryl ashlee, or exposure time and number of fluorographic images (if radiation exposure indices are not avail able) TECHNICAL DOCUMENTATION: JOB ID: [id number] [employer]- All Rights Reserved Reading location - IP/workstation name: [email or web address]
== END ==
LOC: RAD 07:37
PROVIDERS: ATTEND Otolaryngology
DX: J38.1 Polyp of vocal cord and larynx (principal); R13.10 Dysphagia, unspecified
CPT/HCPCS: 70491; 74220

== ENCOUNTER 2019-10-04 08:30 | Day surgery (SDC) | payer BC ==
[~2019-10-04 08:30] MED LIST: PROPOFOL INJ 200 MG/20 ML VIAL IV ONE
[2019-10-04] MEDS ORDERED: PROPOFOL INJ 200 MG/20 ML VIAL IV ONE (09:43)
[2019-10-04 10:17] VITALS: BP 186/91
--- NOTE | 2019-10-04 13:31 | Operative Report ---
Operative Report DATE OF SURGERY: 10/04/19 Operative Report: Risk, benefits and alternatives of the procedure including the risk of bleeding, perforation requiring surgery have been explained to the patient in detail and informed consent has been obtained. Patient is taken back to the endoscopy suite and placed in a left, lateral decubital position. Timeout was called. Propofol medication is administered. Rectal examination is done which did not reveal any masses, tears or fissures. An Olympus videoscope was introduced into the patient's rectum. Scope was then carefully advanced all the way to the cecum. The cecum was identified by the usual anatomical landmarks including the ileocecal valve as well as the appendiceal office. Photodocumentation is obtained. Scope was then sequentially pulled back via the various segments of the colon including the ascending colon, hepatic flexure, transverse colon, splenic flexure, descending colon and finally into the rectosigmoid portions of the colon. Retroflexion maneuvers performed. PREOPERATIVE DIAGNOSIS: Colorectal cancer screening POSTOPERATIVE DIAGNOSIS: 2 polyps removed in the transverse colon and removed. Left side colon Inflammation status post biopsy. Internal hemorrhoids OPERATION: Colonoscopy with snare polypectomy. Colonoscopy with biopsy SURGEON: RUPERT KING ANESTHESIA: LMAC TISSUE REMOVED OR ALTERED: As noted above. COMPLICATIONS: None. ESTIMATED BLOOD LOSS: None. INTRAOPERATIVE FINDINGS: As noted above. PROCEDURE: Patient tolerated the procedure well. No immediate postprocedure complications are noted. Patient is discharged in good condition. Discharge date 10/04/2019. Discharge diet: Regular. Discharge activity: Regular. 2 to 3-week follow-up to discuss findings. Patient is instructed to call the office or proceed to the emergency room should there be any further problems or questions. 3-year surveillance colonoscopy.
== END 2019-10-04 10:30 | disposition home or self-care (01) ==
LOC: END 08:30
PROVIDERS: ATTEND Internal Medicine Gastroenterology
DX: Z12.11 Encounter for screening for malignant neoplasm of colon (principal); D12.3 Benign neoplasm of transverse colon; K64.8 Other hemorrhoids; K52.9 Noninfective gastroenteritis and colitis, unspecified; D64.9 Anemia, unspecified; J45.909 Unspecified asthma, uncomplicated; E78.5 Hyperlipidemia, unspecified; K21.9 Gastro-esophageal reflux disease without esophagitis; Z79.899 Other long term (current) drug therapy; G40.909 Epilepsy, unspecified, not intractable, without status epilepticus; I11.9 Hypertensive heart disease without heart failure; I25.10 Atherosclerotic heart disease of native coronary artery without angina pectoris; Z86.73 Personal history of transient ischemic attack (TIA), and cerebral infarction without residual deficits; Z88.5 Allergy status to narcotic agent; R01.1 Cardiac murmur, unspecified
CPT/HCPCS: 45380; 45385; 88305 ×2; 00812; J2704; 812

== ENCOUNTER 2019-10-25 08:12 | Day surgery (SDC) | payer BC ==
[~2019-10-25 08:12] MED LIST changes: +LIDOCAINE 2% INJ-PF (20 MG/ML) 10 ML AMPUL ONE
[2019-10-25 11:01] VITALS: BP 192/78
--- NOTE | 2019-10-25 14:02 | Operative Report ---
Operative Report DATE OF SURGERY: 10/25/19 Operative Report: The risks benefits and alternatives of the procedure explained to the patient in detail and informed consent is obtained.A GIF Olympus video scope was inserted into the patient's mouth and hypopharynx ,the esophagus is identified intubated and insufflated ,the scope was then advanced through the esophagus stomach and duodenum ,retroflexion maneuver is done, the esophagus stomach and first and second portions of the duodenum examined PREOPERATIVE DIAGNOSIS: Epigastric pain POSTOPERATIVE DIAGNOSIS: Gastric nodule status post biopsy. Gastritis status post biopsy OPERATION: EGD with biopsy SURGEON: RUPERT KING ANESTHESIA: LMAC TISSUE REMOVED OR ALTERED: As noted above. COMPLICATIONS: None. ESTIMATED BLOOD LOSS: None. INTRAOPERATIVE FINDINGS: As noted above. PROCEDURE: Patient tolerated the procedure well. No immediate postprocedure complications are noted. Patient is discharged in good condition. Discharge date 10/25/2019. Discharge diet: Regular. Discharge activity: Regular. 2 to 3-week follow-up to discuss findings. Patient is instructed to call the office or proceed to the emergency room should there be any further problems or questions.
== END 2019-10-25 10:50 | disposition home or self-care (01) ==
LOC: END 08:12
PROVIDERS: ATTEND Internal Medicine Gastroenterology
DX: K29.50 Unspecified chronic gastritis without bleeding (principal); K64.8 Other hemorrhoids; J45.909 Unspecified asthma, uncomplicated; E78.5 Hyperlipidemia, unspecified; I10 Essential (primary) hypertension; K21.9 Gastro-esophageal reflux disease without esophagitis; D64.9 Anemia, unspecified; G40.909 Epilepsy, unspecified, not intractable, without status epilepticus; R01.1 Cardiac murmur, unspecified; Z79.51 Long term (current) use of inhaled steroids; Z79.899 Other long term (current) drug therapy; F17.210 Nicotine dependence, cigarettes, uncomplicated
CPT/HCPCS: 43239; 88342 ×2; 88305 ×2; J2704; J3490

== ENCOUNTER 2019-11-18 06:15 | Observation (INO) | payer BC ==
--- NOTE | 2019-11-18 07:26 | RADIOLOGY REPORT (SQ) ---
EXAM DESCRIPTION: XR CHEST 1 VIEW COMPLETED DATE/TME: 11/18/2019 06:31 CLINICAL HISTORY: 54 years Female, SOB, chest pain COMPARISON: None. NUMBER OF VIEWS/TECHNIQUE: 1/AP FINDINGS: Adequate lung volume, clear parenchyma, normal cardiac silhouette, and intact bony thorax. IMPRESSION: No acute cardiopulmonary findings.
[2019-11-18 09:38] LABS: ABSOLUTE LYMPHOCYTES (AUTO) 0.4 10^3/uL (0.5-4.7); ABSOLUTE NEUT (AUTO) 5.2 10^3/uL (1.7-8.2); BASOPHILS % (AUTO) 0.2 % (0-2); EOSINOPHILS % (AUTO) 0.7 % (0-6); HEMATOCRIT 40.6 % (36.0-47.0); HEMOGLOBIN 14.1 g/dL (12.0-15.5); LYMPHOCYTES % (AUTO) 6.5 % (13-45); MEAN CORPUSCULAR HGB CONC 34.7 g/dL (32.0-36.0); MEAN CORPUSCULAR VOLUME 83 fl (80-97); MONOCYTES % (AUTO) 0.6 % (3-13); PLATELET COUNT 228 10^3/uL (150-450); RED BLOOD COUNT 4.87 10^6/uL (3.72-5.28); RED CELL DISTRIBUTION WIDTH 16.2 % (11.5-14.0); TOTAL CELLS COUNTED % (AUTO) 100 %; WHITE BLOOD COUNT 5.6 10^3/uL (4.0-10.5)
[2019-11-18 09:58] LABS: ALBUMIN 4.1 g/dL (3.5-5.0); ALKALINE PHOSPHATASE 96 U/L (38-126); ANION GAP 8 (5-19); ASPARTATE AMINO TRANSFERASE 29 U/L (14-36); BILIRUBIN,TOTAL 0.3 mg/dL (0.2-1.3); BLOOD UREA NITROGEN 12 mg/dL (7-20); CALCIUM 9.2 mg/dL (8.4-10.2); CARBON DIOXIDE 27 mmol/L (22-30); CHLORIDE 102 mmol/L (98-107); GLUCOSE 107 mg/dL (75-110); POTASSIUM 3.9 mmol/L (3.6-5.0); TOTAL PROTEIN 7.1 g/dL (6.3-8.2)
--- NOTE | 2019-11-18 10:03 | ER Document Report ---
ED General - General Chief Complaint: Shortness Of Breath Stated Complaint: BREATHING DIFFICULTY Time Seen by Provider: 11/18/19 09:57 Primary Care Provider: KAILEE MILLS DO [Primary Care Provider] - Follow up as needed Information source: Patient Notes: Patient is a 54-year-old female presenting to the emergency department chief complaint of shortness of breath and chest tightness. 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 This more than likely explains her dizziness. Patient states that she was recommended to come to the emergency department for same but did not. She states last night she was unable to sleep because of shortness of breath. 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 Patient denies travel history or trauma history and does report nausea and vomiting. TRAVEL OUTSIDE OF THE [place] IN LAST 30 DAYS: No - HPI Onset: Last week Onset/Duration: Gradual, Persistent, Worse Quality of pain: Achy Severity: Mild Pain Level: 1 Associated symptoms: Nonproductive cough, Diarrhea, Nausea, Vomiting, Shortness of breath Exacerbated by: Movement, Walking, Coughing, Deep breathing Relieved by: Denies Similar symptoms previously: Yes Recently seen / treated by doctor: Yes - Related Data Allergies/Adverse Reactions: hydrocodone [From Vicodin] Allergy (Verified 03/06/19 02:21) shellfish derived Allergy (Verified 10/04/19 09:30) Past Medical History - General Information source: Patient, [facility] Records - Social History Smoking Status: Former Smoker Frequency of alcohol use: None Drug Abuse: None Lives with: Alone Family History: Hypertension Patient has suicidal ideation: No Patient has homicidal ideation: No - Past Medical History Cardiac Medical History: Reports: Hx Congestive Heart Failure, Hx Heart Attack, Hx Hypercholesterolemia, Hx Hypertension Denies: Hx Atrial Fibrillation, Hx Coronary Artery Disease, Hx DVT, Hx Pulmon star Embolism Pulmonary Medical History: Reports: Hx Sleep Apnea - Probable but sleep study is still pending Denies: Hx Asthma, Hx Bronchitis, Hx COPD, Hx Pneumonia, Hx Respiratory Failure Neurological Medical History: Reports: Hx Cerebrovascular Accident, Hx Seizures Endocrine Medical History: Denies: Hx Diabetes Mellitus Type 1, Hx Diabetes Mellitus Type 2, Hx Hyperthyroidism, Hx Hypothyroidism Renal/ Medical History: Denies: Hx Peritoneal Dialysis GI Medical History: Denies: Hx Cirrhosis, Hx Crohn's Disease, Hx Hepatitis, Hx Ulcerative Colitis Musculoskeletal Medical History: Reports Hx Arthritis - RA, Denies Hx Gout Skin Medical History: Denies Hx Eczema, Denies Hx Psoriasis Infectious Medical History: Denies: Hx Hepatitis Past Surgical History: Reports: Hx Genitourinary Surgery - bladder suspension, Hx Hysterectomy, Hx Orthopedic Surgery - elbow - Immunizations Hx Diphtheria, Pertussis, Tetanus Vaccination: No Review of Systems - Review of Systems Notes: REVIEW OF SYSTEMS: CONSTITUTIONAL : Per HPI EENT: Denies eye, ear, throat, or mouth pain or symptoms. Denies nasal or sinus congestion. CARDIOVASCULAR: Denies chest pain. RESPIRATORY: Per HPI GASTROINTESTINAL: Per HPI GENITOURINARY: Denies difficulty urinating, painful urination, burning, frequency, or blood in urine. MUSCULOSKELETAL: Denies neck or back pain or joint pain or swelling. SKIN: Denies rash or skin lesions. HEMATOLOGIC : Denies easy bruising or bleeding. NEUROLOGICAL: Denies altered mental status or loss of consciousness. Denies headache. Denies weakness or paralysis or loss of use of either side. Denies problems with gait or speech. Denies sensory or motor loss. PSYCHIATRIC: Denies suicidal or homicidal ideations 10 Systems are negative unless otherwise specified above Physical Exam - Vital signs Vitals: Pulse Ox 95 11/18/19 06:31 - Notes Notes: PHYSICAL EXAMINATION: GENERAL: Well-appearing, well-nourished however patient obviously looks ill secondary to coughing. HEAD: Atraumatic, normocephalic. EYES: Pupils equal round and reactive to light, extraocular movements intact, sclera anicteric, conjunctiva are normal. ENT: nares patent, oropharynx clear without exudates. Moist mucous membranes. NECK: Normal range of motion, supple without lymphadenopathy, no appreciable JVD LUNGS: Lungs clear to auscultation bilaterally and equal. No wheezes rales or rhonchi. However deep inspiration causes a cough reflex HEART: Regular rate and rhythm without murmurs ABDOMEN: Soft, nontender, normal bowel sounds. No guarding, no rebound. No masses appreciated. EXTREMITIES: Active full range of motion, no pitting or edema. No cyanosis. 2+ pulses x4 NEUROLOGICAL: No focal neurological deficits. Moves all extremities spontaneously and on command. SKIN: Warm, Dry, and intact. Normal turgor, no rashes or lesions noted. Course - Re-evaluation Re-evalutation: 11/18/19 11:29 Patient has been maintained in the emergency department on a air sampling and monitoring while present. Patient has been reevaluated several times while in the emergency department. After evaluation of laboratory EKG and radiologic studies I see no signs of pneumonia, pneumothorax, acute myocardial infarction, dissection or pulmonary embolism, there are no signs of rib fractures, no signs of acute coronary syndrome. Patient does have continued chest pressure and wheezing in all chavez even after breathing treatments magnesium and steroids. With the patient's risk factors and presenting complaints I feel most appropriate the patient should be admitted for serial cardiac enzymes and breathing treatments. Patient has received aspirin and nitroglycerin paste to the anterior chest wall per protocol. Patient is agreeable with care plan. I have discussed these results with the patient answered all questions and patient is agreeable with admission at this time. I have spoken with the hospitalist they are likewise agreeable with care plan. 11/18/19 11:32 - Vital Signs Vital signs: Temp Pulse Resp BP Pulse Ox 98.0 F 75 26 H 166/79 H 98 11/18/19 06:32 11/18/19 06:32 11/18/19 06:32 11/18/19 10:15 11/18/19 10:15 - Laboratory Result Diagrams: 11/18/19 09:30 11/18/19 09:30 Laboratory results interpreted by me: 11/18/19 09:30 RDW 16.2 H Lymph % (Auto) 6.[address] [place] % (Auto) 0.6 L Absolute Lymphs (auto) 0.4 L Absolute Monos (auto) 0.0 L Seg Neutrophils % 92.0 H - Diagnostic Test Radiology reviewed: Reports reviewed - EKG Interpretation by Nd EKG shows normal: Sinus rhythm Rate: Normal Rhythm: NSR Additional EKG results interpreted by me: 11/18/19 11:35 EKG is interpreted by va demonstrates sinus rhythm 62 bpm there is minimal ST depression in the lateral leads QTC corrected of 492 ms. There is no old EKG available at this time for comparison. Discharge - Discharge Clinical Impression: Morbid obesity with BMI of 40.0-44.9, adult, COPD exacerbation HTN (hypertension) Qualifiers: Hypertension type: unspecified Qualified Code(s): I10 - Essential (primary) hypertension Chest pain Qualifiers: Chest pain type: unspecified Qualified Code(s): R07.9 - Chest pain, unspecified Condition: Fair Disposition: ADMITTED OBSERVATION Admitting Provider: Michael (Hospitalist) Unit Admitted: Telemetry Referrals: KAILEE MILLS DO [Primary Care Provider] - Follow up as needed
[2019-11-18] MEDS ORDERED: IPRATROPIUM/ALBUTEROL 0.5-2.5 MG/3 ML AMPUL NEB ONE (10:27)
[2019-11-18] MEDS ORDERED: METHYLPREDNISOLONE INJ 125 MG/2 ML SDV IV ONE (10:27)
[2019-11-18] MEDS ORDERED: ONDANSETRON HCL INJ/PF 4 MG/2 ML SDV IV ONE (10:28)
[2019-11-18] MEDS ORDERED: MAGNESIUM SULFATE/D5W 1 GM/100 ML RTUPB IV ONE (10:28)
[2019-11-18] MEDS ORDERED: ASPIRIN 81 MG TABLET, CHEWABLE PO ONE (11:34)
[2019-11-18] MEDS ORDERED: NITROGLYCERIN 2% OINTMENT 1 GM PACKET TP ONE (11:34)
[2019-11-18] MEDS ORDERED: ACETAMINOPHEN 325 MG TABLET PO PRN (12:49)
[2019-11-18] MEDS ORDERED: MAG HYDROX/AL HYDROX/SIMETH SUSP 30 ML UDCUP PO PRN (12:49)
[2019-11-18] MEDS ORDERED: IPRATROPIUM/ALBUTEROL 0.5-2.5 MG/3 ML AMPUL NEB PRN (13:02)
--- NOTE | 2019-11-18 13:30 | PDOC H&P ---
History of Present Illness Admission Date/PCP: 11/18/19 11:41 KAILEE MILLS DO Patient complains of: Chest pain. Elevated blood pressures History of Present Illness: MERY NUNN is a 54 year old female with a history of HTN, HOCM, possible COPD on inhalers, who presents to the hospital on referral of a insole filler for evaluation of hypertensive urgency. Patient saw insole filler yesterday and blood pressure was 230s/120s. Patient notes that her blood pressure has been elevated for the past several months of phone accompanied with headache. Patient was asked to come to the ER by her insole filler yesterday but decided to do that today. Patient also admits to chest pain which is substernal and worsens with exertion with mild alleviation with rest. Currently describes the pain as 7/10. Describes it as a pinching or squeezing sensation. No radiation. Patient referred to hospitalist service for admission for chest pain. She was also noted by ER provider to be wheezing significantly and was thought to be having a COPD exacerbation. Patient denies any diagnosis of COPD or asthma but does say that she uses 2 inhalers at home. Past Medical History Cardiac Medical History: Reports: Congestive Heart Failure, Hypertension, Heart Murmur Denies: Atrial Fibrillation, Coronary Artery Disease, DVT, Pulmonary Embolism Pulmonary Medical History: Denies: Asthma, Bronchitis, Chronic Obstructive Pulmonary Disease (COPD), Pneumonia, Respiratory Failure Endocrine Medical History: Denies: Diabetes Mellitus Type 1, Diabetes Mellitus Type 2, Hyperthyroidism, Hypothyroidism GI Medical History: Denies: Cirrhosis, Crohn's Disease, Hepatitis, Ulcerative Colitis Musculoskeltal Medical History: Reports: Arthritis - RA Denies: Gout Skin Medical History: Denies: Eczema, Psoriasis Hematology: Denies: Anemia, Bleeding Tendencies Past Surgical History Past Surgical History: Reports: Hysterectomy, Orthopedic Surgery - elbow Social History Information Source: Patient Smoking Status: Former Smoker Frequency of Alcohol Use: Occasional Hx Recreational Drug Use: No Drugs: None Hx Prescription Drug Abuse: No - Advance Directive Resuscitation Status: Do Not Resuscitate - dnr/dni confirmed by patient on admission Family History Family History: Hypertension Parental Family History Reviewed: Yes Children Family History Reviewed: NA Sibling(s) Family History Reviewed.: NA Medication/Allergy Home Medications: Furosemide [Lasix 20 mg Tablet] 20 mg PO DAILY 10/04/19 Valsartan 160 mg PO DAILY 10/04/19 Carvedilol [Coreg] 1 tab PO Q12 10/22/19 Albuterol Sulfate [Ventolin Hfa 8 gm Mdi] 2 puff IH QIDP PRN 11/18/19 Amlodipine Besylate [Norvasc 10 mg Tablet] 10 mg PO DAILY 11/18/19 Aspirin 81 mg PO DAILY 11/18/19 Atorvastatin Calcium [Lipitor 40 mg Tablet] 40 mg PO QHS 11/18/19 Carbamazepine [Tegretol 200 Mg Tablet] 200 mg PO DAILY 11/18/19 Hydrochlorothiazide [Hydrodiuril 50 mg Tablet] 50 mg PO QAM 11/18/19 Pantoprazole Sodium [Protonix [address] Tablet] 40 mg PO Q6AM 11/18/19 Ranitidine HCl [Zantac] 150 mg PO BID 11/18/19 Allergies/Adverse Reactions: hydrocodone [From Vicodin] Allergy (Verified 03/06/19 02:21) shellfish derived Allergy (Verified 10/04/19 09:30) Review of Systems Constitutional: ABSENT: chills, fatigue Nose, Mouth, and Throat: PRESENT: headache(s) Cardiovascular: PRESENT: chest pain, dyspnea on exertion Gastrointestinal: ABSENT: abdominal pain Musculoskeletal: ABSENT: back pain Neurological: ABSENT: confusion, dizziness Psychiatric: ABSENT: anxiety Endocrine: ABSENT: polyuria Hematologic/Lymphatic: ABSENT: easy bleeding Physical Exam Vital Signs: Temp Pulse Resp BP Pulse Ox 98.0 F 75 15 158/79 H 95 11/18/19 06:32 11/18/19 06:32 11/18/19 12:01 11/18/19 12:01 11/18/19 12:01 Intake & Output 11/17/19 11/18/19 11/19/19 06:59 06:59 06:59 Intake Total 100 Balance 100 Weight 105 kg General appearance: PRESENT: no acute distress, cooperative Head exam: PRESENT: normocephalic Eye exam: ABSENT: scleral icterus Neck exam: ABSENT: JVD Respiratory exam: PRESENT: clear to auscultation estefany, unlabored. ABSENT: chest wall tenderness, tachypnea, wheezes Cardiovascular exam: PRESENT: +S1, +S2, systolic murmur - LLSB, tachycardia GI/Abdominal exam: PRESENT: soft. ABSENT: rebound, rigid, tenderness Extremities exam: PRESENT: pedal edema, +1 edema Neurological exam: PRESENT: alert, awake, oriented to person, oriented to place, oriented to time Psychiatric exam: ABSENT: agitated, anxious Focused psych exam: ABSENT: pressured speech Skin exam: ABSENT: jaundice Results Laboratory Results: 11/18/19 09:30 11/18/19 09:30 11/18/19 11/18/19 09:30 09:30 WBC 5.6 RBC 4.87 Hgb 14.1 Hct 40.6 MCV 83 MCH 29.0 MCHC 34.7 RDW 16.2 H Plt Count 228 Seg Neutrophils % 92.0 H Sodium 137.0 Potassium 3.9 Chloride 102 Carbon Dioxide 27 Anion Gap 8 BUN 12 Creatinine 0.58 Est GFR ( Amer) > 60 Glucose 107 Calcium 9.2 Total Bilirubin 0.3 AST 29 Alkaline Phosphatase 96 Total Protein 7.1 Albumin 4.1 11/18/19 11/18/19 09:30 11:55 Troponin I < 0.012 < 0.012 Impressions: Chest X-Ray 11/18/19 06:31 IMPRESSION: No acute cardiopulmonary findings. Assessment and Plan - Diagnosis (1) Chest pain Qualifiers: Chest pain type: unspecified Qualified Code(s): R07.9 - Chest pain, unspecified Is this a current diagnosis for this admission?: Yes Plan: EKG does show some mild ST depressions lateral leads but seems very mild. Troponin negative. Chest pain does seem somewhat typical. Trial of nitroglycerin Patient notably had a cardiac cath February 2019 but there is no report showing up on our system only imaging. Progress notes from that hospitalization notes noncritical coronary artery disease noted. We will consult cardiology to determine if need for stress testing Check echo given associated dyspnea on exertion with history of hocm (2) Poorly-controlled hypertension Is this a current diagnosis for this admission?: Yes Plan: BP today in the 150s systolic. Will place patient on amlodipine valsartan and Lasix and monitor. Uptitrate blood pressure regimen as needed. (3) HOCM (hypertrophic obstructive cardiomyopathy) Is this a current diagnosis for this admission?: Yes Plan: Will check echo in light of worsening dyspnea on exertion. Continue Coreg. (4) COPD exacerbation Is this a current diagnosis for this admission?: Yes Plan: Patient denies history of COPD or asthma but does have a significant smoking history and does use 2 inhalers at home. She was noted to be wheezing by ER provider and given nebs and steroids. Currently wheezing seems to have resolved. I will continue on nebulizer treatment every 8 hours potential history of COPD and will place on steroids only if wheezing resumes on follow-up exams. (5) Obesity (BMI 30.0-34.9) Is this a current diagnosis for this admission?: Yes - Time Time Spent with patient: 35 or more minutes
[2019-11-18] MEDS: VALSARTAN 160 MG TABLET PO SCH (14:20)
[2019-11-18] MEDS: CARVEDILOL 12.5 MG TABLET PO SCH ×2 (14:20→22:02)
[2019-11-18] MEDS: IPRATROPIUM/ALBUTEROL 0.5-2.5 MG/3 ML AMPUL NEB SCH ×2 (15:36→23:46)
--- NOTE | 2019-11-18 17:05 | PDOC CONSULTATION ---
Consultation Consult Date: 11/18/19 Attending physician:: leonardo Kendrick Provider Consulted: JORJE HILL Consult reason:: Chest pain History of Present Illness Admission Date/PCP: 11/18/19 11:41 KAILEE MILLS DO Patient complains of: Chest pain History of Present Illness: MERY NUNN is a 54 year old female Who is been admitted to the hospital with complaints of chest pain and poorly controlled hypertension Patient is reported to have poorly controlled systemic hypertension which is been long-lasting. There is also diagnosis of hypertrophic cardiomyopathy. Patient had a cardiac catheterization last year which did not reveal obstructive coronary artery disease. No stents were placed. Patient saw her primary technical services representative yesterday and was noted to have significant hypertension and was asked to report to the emergency room for further care but she did not. This morning she felt worse with primarily headache and chest discomfort as her symptoms and presented to the emergency room. Since admission to the emergency room her blood pressure is better controlled and she feels a lot better although continues to have some of the above symptoms and smaller degree. She does not smoke cigarettes. 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 No familial illnesses reported. Past Medical History Cardiac Medical History: Reports: Congestive Heart Failure, Myocardial I nfarction, Hyperlipidema, Hypertension, Heart Murmur Denies: Atrial Fibrillation, Coronary Artery Disease, DVT, Pulmonary Embolism Pulmonary Medical History: Reports: Sleep Apnea - Probable but sleep study is still pending Denies: Asthma, Bronchitis, Chronic Obstructive Pulmonary Disease (COPD), Pneumonia, Respiratory Failure Neurological Medical History: Reports: Seizures Endocrine Medical History: Denies: Diabetes Mellitus Type 1, Diabetes Mellitus Type 2, Hyperthyroidism, Hypothyroidism GI Medical History: Denies: Cirrhosis, Crohn's Disease, Hepatitis, Ulcerative Colitis Musculoskeltal Medical History: Reports: Arthritis - RA Denies: Gout Skin Medical History: Denies: Eczema, Psoriasis Hematology: Denies: Anemia, Bleeding Tendencies Past Surgical History Past Surgical History: Reports: Hysterectomy, Orthopedic Surgery - elbow Social History Lives with: Alone Smoking Status: Former Smoker Frequency of Alcohol Use: Occasional Hx Recreational Drug Use: No Drugs: None Hx Prescription Drug Abuse: No - Advance Directive Resuscitation Status: Do Not Resuscitate - dnr/dni confirmed by patient on admission Family History Family History: Hypertension Parental Family History Reviewed: No - No familial illnesses Children Family History Reviewed: NA Sibling(s) Family History Reviewed.: NA Medication/Allergy Home Medications: Furosemide [Lasix 20 mg Tablet] 20 mg PO DAILY 10/04/19 Valsartan 160 mg PO DAILY 10/04/19 Carvedilol [Coreg] 1 tab PO Q12 10/22/19 Albuterol Sulfate [Ventolin Hfa 8 gm Mdi] 2 puff IH QIDP PRN 11/18/19 Amlodipine Besylate [Norvasc 10 mg Tablet] 10 mg PO DAILY 11/18/19 Aspirin 81 mg PO DAILY 11/18/19 Atorvastatin Calcium [Lipitor 40 mg Tablet] 40 mg PO QHS 11/18/19 Carbamazepine [Tegretol 200 Mg Tablet] 200 mg PO DAILY 11/18/19 Hydrochlorothiazide [Hydrodiuril 50 mg Tablet] 50 mg PO QAM 11/18/19 Pantoprazole Sodium [Protonix [address] Tablet] 40 mg PO Q6AM 11/18/19 Ranitidine HCl [Zantac] 150 mg PO BID 11/18/19 Allergies/Adverse Reactions: hydrocodone [From Vicodin] Allergy (Verified 03/06/19 02:21) shellfish derived Allergy (Verified 10/04/19 09:30) Review of Systems Eyes: PRESENT: as per HPI Ears: PRESENT: as per HPI Nose, Mouth, and Throat: PRESENT: as per HPI, headache(s) Cardiovascular: PRESENT: chest pain Integumentary: PRESENT: as per HPI Neurological: PRESENT: as per HPI Physical Exam Vital Signs: Temp Pulse Resp BP Pulse Ox 98.0 F 68 22 H 153/80 H 94 11/18/19 06:32 11/18/19 15:36 11/18/19 16:31 11/18/19 16:31 11/18/19 16:31 Intake & Output 11/17/19 11/18/19 11/19/19 06:59 06:59 06:59 Intake Total 100 Balance 100 Weight 105 kg General appearance: PRESENT: no acute distress, cooperative, obese Head exam: PRESENT: atraumatic, normocephalic Eye exam: PRESENT: conjunctiva pink, EOMI Mouth exam: PRESENT: moist Respiratory exam: PRESENT: clear to auscultation estefany, symmetrical, unlabored Cardiovascular exam: PRESENT: RRR, +S1, +S2 Pulses: PRESENT: normal radial pulses GI/Abdominal exam: PRESENT: soft Rectal exam: PRESENT: deferred Neurological exam: PRESENT: alert, awake, oriented to person, oriented to place, oriented to time, oriented to situation Psychiatric exam: PRESENT: appropriate affect Skin exam: PRESENT: dry, intact, normal color Results Laboratory Results: 11/18/19 09:30 11/18/19 09:30 11/18/19 11/18/19 09:30 09:30 WBC 5.6 RBC 4.87 Hgb 14.1 Hct 40.6 MCV 83 MCH 29.0 MCHC 34.7 RDW 16.2 H Plt Count 228 Seg Neutrophils % 92.0 H Sodium 137.0 Potassium 3.9 Chloride 102 Carbon Dioxide 27 Anion Gap 8 BUN 12 Creatinine 0.58 Est GFR ( Amer) > 60 Glucose 107 Calcium 9.2 Total Bilirubin 0.3 AST 29 Alkaline Phosphatase 96 Total Protein 7.1 Albumin 4.1 11/18/19 11/18/19 09:30 11:55 Troponin I < 0.012 < 0.012 EKG Comments: Cardiac catheterization 03/09/2019 No stents were placed. Report is not available for review Twelve-lead EKG 11/18/2019 Sinus rhythm, left atrial abnormality, normal AV conduction, QTC is 492 ms Transthoracic echocardiogram 03/06/2019 Left ventricular ejection fraction 60 to 65%. Moderate left ventricular hypertrophy question. Mild aortic stenosis. Impressions: Chest X-Ray 11/18/19 06:31 IMPRESSION: No acute cardiopulmonary findings. Assessment & Plan - Diagnosis (1) Chest pain Qualifiers: Chest pain type: unspecified Qualified Code(s): R07.9 - Chest pain, unspecified Is this a current diagnosis for this admission?: Yes Plan: Troponin profile is nondiagnostic for myocardial ischemia EKG without changes for myocardial ischemia Likely chest pain is due to subendocardial ischemia in the setting of uncontrolled hypertension Should respond to treatment of systemic hypertension Given recent cardiac authorization was no intervention performed suspect no obst ructive coronary artery disease. (2) HTN (hypertension) Qualifiers: Hypertension type: unspecified Qualified Code(s): I10 - Essential (primary) hypertension Is this a current diagnosis for this admission?: Yes Plan: Poorly controlled systemic hypertension Agree with current regimen. Monitor blood pressure Patient claims that she is watching salt in her diet.
--- NOTE | 2019-11-18 19:39 | EKG REPORT ---
SEVERITY:- BORDERLINE ECG - SINUS RHYTHM PROBABLE LEFT ATRIAL ABNORMALITY MINIMAL ST DEPRESSION, LATERAL LEADS BORDERLINE PROLONGED QT INTERVAL : Confirmed by: Aditi Myers MD 18-Nov-2019 19:38:58
[2019-11-18] MEDS: NITROGLYCERIN 0.4 MG/TAB 25 TAB/BOTTLE SL PRN ×2 (20:55→21:10)
[2019-11-18 23:03] LABS: CREATINE KINASE MB 0.66 ng/mL (<4.55)
[2019-11-18 23:06] LABS: TROPONIN I < 0.012 ng/mL
[2019-11-19] MEDS ORDERED: PANTOPRAZOLE SODIUM 40 MG TABLET.DR PO SCH (06:00)
[2019-11-19] MEDS: IPRATROPIUM/ALBUTEROL 0.5-2.5 MG/3 ML AMPUL NEB SCH (08:08)
[2019-11-19] MEDS ORDERED: AMLODIPINE BESYLATE 10 MG TABLET PO SCH (10:00)
[2019-11-19] MEDS ORDERED: ASPIRIN 81 MG TABLET, CHEWABLE PO SCH (10:00)
[2019-11-19] MEDS ORDERED: ENOXAPARIN SODIUM INJ 40 MG/0.4 ML DISP.SYRIN SUBCUT SCH (10:00)
[2019-11-19] MEDS ORDERED: FUROSEMIDE 20 MG TABLET PO SCH (10:00)
[2019-11-19] MEDS ORDERED: CARBAMAZEPINE 200 MG TABLET PO SCH (10:00)
--- NOTE | 2019-11-19 10:57 | PDOC PROGRESS REPORT ---
Subjective Progress Note for:: 11/19/19 Subjective:: Feels better. Blood pressure is better controlled. Continues to endorse chest pain. Patient feels that the chest pain is better when she wears oxygen. Reason For Visit: TYPICAL CHEST PAIN,WHEEZING Physical Exam Vital Signs: Temp Pulse Resp BP Pulse Ox 97.8 F 55 L 16 123/51 L 97 11/19/19 07:52 11/19/19 08:10 11/19/19 08:10 11/19/19 07:52 11/19/19 08:10 Intake & Output 11/18/19 11/19/19 11/20/19 06:59 06:59 06:59 Intake Total 340 Balance 340 Weight 105 kg 116.8 kg General appearance: PRESENT: cooperative Head exam: PRESENT: atraumatic, normocephalic Eye exam: PRESENT: conjunctiva pink, EOMI Mouth exam: PRESENT: moist, neck supple Respiratory exam: PRESENT: symmetrical Cardiovascular exam: PRESENT: RRR, +S1, +S2 Pulses: PRESENT: normal radial pulses GI/Abdominal exam: PRESENT: soft Rectal exam: PRESENT: deferred Neurological exam: PRESENT: alert, awake, oriented to person, oriented to place, oriented to time Psychiatric exam: PRESENT: appropriate affect Skin exam: PRESENT: dry, intact, normal color Results Laboratory Results: 11/18/19 09:30 11/18/19 09:30 11/18/19 11/18/19 11/18/19 09:30 11:55 22:22 Creatine Kinase 56 CK-MB (CK-2) Troponin I < 0.012 < 0.012 11/18/19 22:22 Creatine Kinase CK-MB (CK-2) 0.66 Troponin I < 0.012 Impressions: Chest X-Ray 11/18/19 06:31 IMPRESSION: No acute cardiopulmonary findings. Assessment & Plan - Diagnosis (1) Chest pain Qualifiers: Chest pain type: unspecified Qualified Code(s): R07.9 - Chest pain, unspecified Is this a current diagnosis for this admission?: Yes Plan: Unlikely to be due to myocardial ischemia. Also presently blood pressure is better controlled. Unlikely cardiac origin of chest pain Cardiac utilization performed last year and no intervention performed. Patient does feel better Better control of blood pressure is necessary. Would recommend continuing oral medications as (2) HTN (hypertension) Qualifiers: Hypertension type: unspecified Qualified Code(s): I10 - Essential (primary) hypertension Is this a current diagnosis for this admission?: Yes Plan: Blood pressure is much better controlled Continue valsartan Continue carvedilol Continue amlodipine The current doses appear to be holding her blood pressure down pretty well and would recommend continuing this dosage. Avoid added salt in the diet patient is already compliant with this instruction.
[2019-11-19] MEDS: VALSARTAN 160 MG TABLET PO SCH (11:00)
[2019-11-19] MEDS: CARVEDILOL 12.5 MG TABLET PO SCH (11:00)
--- NOTE | 2019-11-19 12:33 | PDOC DISCHARGE SUMMARY ---
Impression - Admit/DC Date/PCP Admission Date/Primary Care Provider: 11/18/19 11:41 KAILEE MILLS DO Discharge Date: 11/19/19 - Discharge Diagnosis (1) Chest pain Is this a current diagnosis for this admission?: Yes (2) Poorly-controlled hypertension Is this a current diagnosis for this admission?: Yes (3) HOCM (hypertrophic obstructive cardiomyopathy) Is this a current diagnosis for this admission?: Yes (4) COPD exacerbation Is this a current diagnosis for this admission?: Yes (6) Obesity (BMI 30.0-34.9) Is this a current diagnosis for this admission?: Yes - Assessment Summary: 54 year old female with a history of HTN, HOCM, possible COPD on inhalers, who presents to the hospital on referral of a watcher [employer] for evaluation of hypertensive urgency. Patient saw watcher [employer] yesterday and blood pressure was 230s/120s. Patient notes that her blood pressure has been elevated for the past several months of phone accompanied with headache. Patient was asked to come to the ER by her watcher [employer] yesterday but decided to do that today. Patient also admits to chest pain which is substernal and worsens with exertion with mild alleviation with rest. Currently describes the pain as 7/10. Describes it as a pinching or squeezing sensation. No radiation. Patient referred to hospitalist service for admission for chest pain. She was also noted by ER provider to be wheezing significantly and was thought to be having a COPD exacerbation. Patient denies any diagnosis of COPD or asthma but does say that she uses 2 inhalers at home. 11/[id number]-[id number]-old female multiple medical problems admitted with chest pains and hypertensive urgency. Hypertensive urgency is resolved blood pressure today is 123/60. Cardiology consult was done because patient complains of chest pain and she has recent cardiac cath which was negative no further work-up recommended by the cardiology team. Patient is stable to go home today. - Additional Information Resuscitation Status: Do Not Resuscitate - dnr/dni confirmed by patient on admission Discharge Diet: Cardiac Discharge Activity: Activity As Tolerated Referrals: KAILEE MILLS DO [Primary Care Provider] - 11/30/19 4:00 pm Home Medications: Furosemide [Lasix 20 mg Tablet] 20 mg PO DAILY 10/04/19 Valsartan 160 mg PO DAILY 10/04/19 Carvedilol [Coreg] 1 tab PO Q12 10/22/19 Albuterol Sulfate [Ventolin Hfa 8 gm Mdi] 2 puff IH QIDP PRN 11/18/19 Amlodipine Besylate [Norvasc 10 mg Tablet] 10 mg PO DAILY 11/18/19 Aspirin 81 mg PO DAILY 11/18/19 Atorvastatin Calcium [Lipitor 40 mg Tablet] 40 mg PO QHS 11/18/19 Pantoprazole Sodium [Protonix [address] Tablet] 40 mg PO Q6AM 11/18/19 Acetaminophen [Tylenol 325 mg Tablet] 650 mg PO Q4HP PRN tablet 11/19/19 History of Present Illiness History of Present Illness: MERY NUNN is a 54 year old female 54 year old female with a history of HTN, HOCM, possible COPD on inhalers, who presents to the hospital on referral of a watcher [employer] for evaluation of hypertensive urgency. Patient saw watcher [employer] yesterday and blood pressure was 230s/120s. Patient notes that her blood pressure has been elevated for the past several months of phone accompanied with headache. Patient was asked to come to the ER by her watcher [employer] yesterday but decided to do that today. Patient also admits to chest pain which is substernal and worsens with exertion with mild alleviation with rest. Currently describes the pain as 7/10. Describes it as a pinching or squeezing sensation. No radiation. Patient referred to hospitalist service for admission for chest pain. She was also noted by ER provider to be wheezing significantly and was thought to be having a COPD exacerbation. Patient denies any diagnosis of COPD or asthma but does say that she uses 2 inhalers at home. Hospital Course Hospital Course: 54 year old female with a history of HTN, HOCM, possible COPD on inhalers, who presents to the hospital on referral of a watcher [employer] for evaluation of hypertensive urgency. Patient saw watcher [employer] yesterday and blood pressure was 230s/120s. Patient notes that her blood pressure has been elevated for the past several months of phone accompanied with headache. Patient was asked to come to the ER by her watcher [employer] yesterday but decided to do that today. Patient also admits to chest pain which is substernal and worsens with exertion with mild alleviation with rest. Currently describes the pain as 7/10. Describes it as a pinching or squeezing sensation. No radiation. Patient referred to hospitalist service for admission for chest pain. She was also noted by ER provider to be wheezing significantly and was thought to be having a COPD exacerbation. Patient denies any diagnosis of COPD or asthma but does say that she uses 2 inhalers at home. 2820-blood pressure is better controlled now no chest pains this morning cardiology evaluation was done recommendation is no need for further testing because of recent cardiac cath which was negative. Physical Exam Vital Signs: Temp Pulse Resp BP Pulse Ox 97.8 F 55 L 16 123/51 L 97 11/19/19 07:52 11/19/19 08:10 11/19/19 08:10 11/19/19 07:52 11/19/19 08:10 Intake & Output 11/18/19 11/19/19 11/20/19 06:59 06:59 06:59 Intake Total 340 Balance 340 Weight 105 kg 116.8 kg General appearance: PRESENT: no acute distress, well-developed Head exam: PRESENT: atraumatic Eye exam: PRESENT: PERRLA Neck exam: ABSENT: carotid bruit, JVD, lymphadenopathy, thyromegaly Respiratory exam: PRESENT: clear to auscultation estefany. ABSENT: rales, rhonchi, wheezes Cardiovascular exam: PRESENT: RRR. ABSENT: diastolic murmur, rubs, systolic murmur Pulses: PRESENT: normal dorsalis pedis pul GI/Abdominal exam: PRESENT: normal bowel sounds, soft. ABSENT: distended, guarding, mass, organolmegaly, rebound, tenderness Rectal exam: PRESENT: deferred Extremities exam: PRESENT: full ROM. ABSENT: calf tenderness, clubbing, pedal edema Neurological exam: PRESENT: alert, awake, oriented to person, oriented to place, oriented to time, oriented to situation, CN II-XII grossly intact. ABSENT: motor sensory deficit Psychiatric exam: PRESENT: appropriate affect, normal mood. ABSENT: homicidal ideation, suicidal ideation Results Laboratory Results: WBC 5.6 10^3/uL (4.0-10.5) 11/18/19 09:30 RBC 4.87 10^6/uL (3.72-5.28) 11/18/19 09:30 Hgb 14.1 g/dL (12.0-15.5) 11/18/19 09:30 Hct 40.6 % (36.0-47.0) 11/18/19 09:30 MCV 83 fl (80-97) 11/18/19 09:30 MCH 29.0 pg (27.0-33.4) 11/18/19 09:30 MCHC 34.7 g/dL (32.0-36.0) 11/18/19 09:30 RDW 16.2 % (11.5-14.0) H 11/18/19 09:30 Plt Count 228 10^3/uL (150-450) 11/18/19 09:30 Lymph % (Auto) 6.5 % (13-45) L 11/18/19 09:30 [place] % (Auto) 0.6 % (3-13) L 11/18/19 09:30 Eos % (Auto) 0.7 % (0-6) 11/18/19 09:30 Baso % (Auto) 0.2 % (0-2) 11/18/19 09:30 Absolute Neuts (auto) 5.2 10^3/uL (1.7-8.2) 11/18/19 09:30 Absolute Lymphs (auto) 0.4 10^3/uL (0.5-4.7) L 11/18/19 09:30 Absolute Monos (auto) 0.0 10^3/uL (0.1-1.4) L 11/18/19 09:30 Absolute Eos (auto) 0.0 10^3/uL (0.0-0.6) 11/18/19 09:30 Absolute Basos (auto) 0.0 10^3/uL (0.0-0.2) 11/18/19 09:30 Seg Neutrophils % 92.0 % (42-78) H 11/18/19 09:30 Sodium 137.0 mmol/L (137-145) 11/18/19 09:30 Potassium 3.9 mmol/L (3.6-5.0) 11/18/19 09:30 Chloride 102 mmol/L (98-107) 11/18/19 09:30 Carbon Dioxide 27 mmol/L (22-30) 11/18/19 09:30 Anion Gap 8 (5-19) 11/18/19 09:30 BUN 12 mg/dL (7-20) 11/18/19 09:30 Creatinine 0.58 mg/dL (0.52-1.25) 11/18/19 09:30 Est GFR ( Amer) > 60 (>60) 11/18/19 09:30 Est GFR (MDRD) Non-Af > 60 (>60) 11/18/19 09:30 Glucose 107 mg/dL (75-110) 11/18/19 09:30 Calcium 9.2 mg/dL (8.4-10.2) 11/18/19 09:30 Total Bilirubin 0.3 mg/dL (0.2-1.3) 11/18/19 09:30 Direct Bilirubin 0.0 mg/dL (0.0-0.4) 11/18/19 09:30 Neonat Total Bilirubin Not Reportable 11/18/19 09:30 Neonat Direct Bilirubin Not Reportable 11/18/19 09:30 Neonat Indirect Bili Not Reportable 11/18/19 09:30 AST 29 U/L (14-36) 11/18/19 09:30 ALT 23 U/L (<35) 11/18/19 09:30 Alkaline Phosphatase 96 U/L (38-126) 11/18/19 09:30 Creatine Kinase 56 U/L (30-135) 11/18/19 22:22 CK-MB (CK-2) 0.66 ng/mL (<4.55) 11/18/19 22:22 Troponin I < 0.012 ng/mL 11/18/19 22:22 Total Protein 7.1 g/dL (6.3-8.2) 11/18/19 09:30 Albumin 4.1 g/dL (3.5-5.0) 11/18/19 09:30 11/18/19 11/18/19 11/18/19 09:30 11:55 22:22 CK-MB (CK-2) 0.66 Troponin I < 0.012 < 0.012 < 0.012 Impressions: Chest X-Ray 11/18/19 06:31 IMPRESSION: No acute cardiopulmonary findings. Plan Plan of Treatment: Patient is going home today advised to be compliant with her medications to give her prescriptions for antihypertensive medications. Patient is strongly advised to follow-up with the primary care physician and also her watcher [employer] as an outpatient. Stroke Is this a Stroke Patient?: No Acute Heart Failure - Is this a Heart Failure Patient?: No
[2019-11-19 13:33] VITALS: BP 144/64
--- NOTE | 2019-11-19 13:53 | EKG REPORT ---
SEVERITY:- ABNORMAL ECG - SINUS RHYTHM PROBABLE LVH WITH SECONDARY REPOL ABNRM : Confirmed by: Aditi Myers MD 19-Nov-2019 13:52:39
--- NOTE | 2019-11-22 13:05 | XCELERA REPORT ---
[address] [address] Transthoracic Echocardiogram Report Name: MERY NUNN Age: 54 yrs Gender: Female : 1965 Patient Status: Inpatient Patient Location: [address] [place] [address] Study Date: 11/19/2019 10:29 AM Height: 71 in Weight: 231 lb BSA: 2.2 m2 Procedure: A complete two-dimensional transthoracic echocardiogram was performed (2D, M-mode, spectral and color flow Doppler). The study was technically difficult with many images being suboptimal in quality. Reason For Study: ESCAMILLA, Typical chest pain, HOCM, Heart murmur (michelle Previous Evaluation: No previous studies were available. History: Chest pain. Ordering Physician: TRINITY RIBEIRO Performed By: Jenifer Hickey Interpretation Summary Left ventricular systolic function is normal. The Ejection Fraction estimate is 60-65% The right ventricle is normal in size and function. There is a trace amount of mitral regurgitation There is mild LVOT obstruction. There is a trace amount of tricuspid regurgitation There is no pericardial effusion. MMode/2D Measurements & Calculations RVDd: 3.3 cm LVIDd: 5.1 cm FS: 40.9 % Ao root diam: 2.5 cm IVSd: 1.6 cm LVIDs: 3.0 cm EDV(Teich): 124.0 ml Ao root area: 5.0 cm2 LVPWd: 1.4 cm ESV(Teich): 35.5 ml LA dimension: 4.3 cm EF(Teich): 71.4 % LVOT diam: 2.6 cm LVOT area: 5.3 cm2 Doppler Measurements & Calculations MV E max ayesha: MV P1/2t max ayesha: Ao V2 max: LV V1 max P.1 cm/sec 110.6 cm/sec 279.7 cm/sec 4.4 mmHg MV A max ayesha: MV P1/2t: 79.7 msec Ao max PG: LV V1 mean P.1 cm/sec MVA(P1/2t): 2.8 cm2 31.3 mmHg 2.2 mmHg MV E/A: 1.5 MV dec slope: Ao V2 mean: LV V1 max: 191.8 cm/sec 105.1 cm/sec 406.2 cm/sec2 Ao mean PG: LV V1 mean: MV dec time: 0.26 sec 17.4 mmHg 68.0 cm/sec Ao V2 VTI: 64.8 cmLV V1 VTI: 26.1 cm JOSE DAVID(I,D): 2.1 cm2 JOSE DAVID(V,D): 2.0 cm2 SV(LVOT): 138.0 ml PA V2 max: TR max ayesha: MV P1/2t-pr_phl: 94.8 cm/sec 266.7 cm/sec 79.7 msec PA max P.6 mmHg TR max P.5 mmHg Left Ventricle The left ventricle is normal in size. There is severe concentric left ventricular hypertrophy. Left ventricular systolic function is normal. The Ejection Fraction estimate is 60-65%. Doppler measurements suggest pseudonormalized left ventricular relaxation, which is associated with grade II/IV or mild to moderate diastolic dysfunction. No regional wall motion abnormalities noted. Right Ventricle The right ventricle is normal in size and function. Atria The right atrium is normal. The left atrium is moderately dilated. Mitral Valve The mitral valve is grossly normal. There is no mitral valve stenosis. There is a trace amount of mitral regurgitation. Aortic Valve The aortic valve is mildly calcified. The aortic valve is sclerotic and shows some degree of functional abnormality. The aortic valve opens well. There is mild LVOT obstruction. Increased gradients and velocities likley LVOT sampling . Tricuspid Valve The tricuspid valve is normal in structure and function. There is a trace amount of tricuspid regurgitation. There is mild to moderate pulmonary hypertension by echo. Right ventricular systolic pressure is estimated to be elevated at 30-40mmHg. Pulmonic Valve The pulmonic valve is not well visualized. Great Vessels The aortic root is normal size. The inferior vena cava appeared dilated and did not change with respiration (RAP > 20 mmHg). Effusions There is no pericardial effusion. : TRINITY RIBEIRO Anil
== END 2019-11-19 14:13 | disposition home or self-care (01) ==
LOC: ER 06:15 → EH 11:41 → 4S 17:22
PROVIDERS: ADMIT Internal Medicine; ATTEND Internal Medicine
DX: R07.2 Precordial pain (principal); I11.0 Hypertensive heart disease with heart failure; I50.9 Heart failure, unspecified; I42.1 Obstructive hypertrophic cardiomyopathy; J44.1 Chronic obstructive pulmonary disease with (acute) exacerbation; E66.01 Morbid (severe) obesity due to excess calories; R19.7 Diarrhea, unspecified; R11.2 Nausea with vomiting, unspecified; M06.9 Rheumatoid arthritis, unspecified; E78.5 Hyperlipidemia, unspecified; I25.2 Old myocardial infarction; Z68.34 Body mass index [BMI] 34.0-34.9, adult; Z79.899 Other long term (current) drug therapy; Z66 Do not resuscitate; Z79.82 Long term (current) use of aspirin; Z87.891 Personal history of nicotine dependence; Z82.49 Family history of ischemic heart disease and other diseases of the circulatory system; Z86.73 Personal history of transient ischemic attack (TIA), and cerebral infarction without residual deficits
CPT/HCPCS: 93005 ×2; 94640 ×5; 99285; 96374; 96375; 36415; 82553; 82550; 85025; 80053; 84484; 93306; 71045; 93010 ×2; G0378 ×3; J2930; J1650; J3475; J3490 ×3; J2405; J7620 ×2

== ENCOUNTER 2019-12-29 08:38 | Emergency (ER) | payer BC ==
--- NOTE | 2019-12-29 09:11 | ER Document Report ---
HPI - HPI Notes: The patient was evaluated during the global Covid 19 pandemic and that diagnosis was suspected/considered upon their initial presentation. Their evaluation, treatment and testing was consistent with current guidelines for patients who present with complaints or symptoms that may be related to Covid 19. 54-year-old female presenting for upper respiratory symptoms. Symptoms have been ongoing for approximately 2 weeks. 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 Patient is a smoker. Patient with history of hypertension. Patient also has history of CHF and CVA with no residual deficits. Patient heart rate is 71, blood pressure 143/85, SPO2 95% on room air not hypoxic. Temperature 98.2. Patient does report that she has had fevers at home over the last week. She has progressively felt more short of breath over the last week. She has been using her inhaler without resolution of the shortness of breath. She reports left-sided chest pain that was initially intermittent in nature now is fairly constant over the last several days. Full physical exam could not be performed due to Covid 19 isolation protocols. Constitutional: Nontoxic appearance, no acute distress Eyes: Nonicteric, extraocular movements intact, sclera clear Cardiovascular: No JVD Respiratory: Nonlabored breathing, no use of accessory muscles, no tachypnea, patient with active wheezing in the right anterior and posterior lobes. There is mild discomfort on palpation of the left upper chest wall Gastrointestinal: Abdomen not distended Musculoskeletal: Moves all extremities well, normal gait Skin: Normal color Neuro: Awake alert oriented x3, normal speech Psych: Normal mood and affect Patient presents with upper respiratory symptoms worrisome for possible Covid 19 but she is also having active shortness of breath, active chest pain with cardiac history. I discussed symptoms at length with the patient. I recommended that the patient go over to the emergency department for further w ork-up of her symptoms that may include cardiac work-up or chest x-ray. Patient verbalized understanding and is agreeable with plan of care at this time. I spoke with Martha the charge nurse in the emergency department at [facility], aware that patient is returning for further evaluation - REPRODUCTIVE Reproductive: DENIES: : Past Medical History - Social History Smoking Status: Current Every Day Smoker Family History: Hypertension - Past Medical History Cardiac Medical History: Reports: Hx Congestive Heart Failure, Hx Heart Attack, Hx Hypercholesterolemia, Hx Hypertension, Hx Heart Murmur Denies: Hx Atrial Fibrillation, Hx Coronary Artery Disease, Hx DVT, Hx Pulmonary Embolism Pulmonary Medical History: Reports: Hx Sleep Apnea - Probable but sleep study is still pending Denies: Hx Asthma, Hx Bronchitis, Hx COPD, Hx Pneumonia, Hx Respiratory Failure Neurological Medical History: Reports: Hx Cerebrovascular Accident, Hx Seizures Endocrine Medical History: Denies: Hx Diabetes Mellitus Type 1, Hx Diabetes Mellitus Type 2, Hx Hyperthyroidism, Hx Hypothyroidism Renal/ Medical History: Denies: Hx Peritoneal Dialysis GI Medical History: Denies: Hx Cirrhosis, Hx Crohn's Disease, Hx Hepatitis, Hx Ulcerative Colitis Musculoskeletal Medical History: Reports Hx Arthritis - RA, Denies Hx Gout Skin Medical History: Denies Hx Eczema, Denies Hx Psoriasis Infectious Medical History: Denies: Hx Hepatitis Past Surgical History: Reports: Hx Genitourinary Surgery - bladder suspension, Hx Hysterectomy, Hx Orthopedic Surgery - elbow - Immunizations Hx Diphtheria, Pertussis, Tetanus Vaccination: No Vertical Provider Document - INFECTION CONTROL TRAVEL OUTSIDE OF THE [place] IN LAST 30 DAYS: No Discharge - Discharge Clinical Impression: Covid-19 Evaluation, Wheezing Upper respiratory infection Qualifiers: URI type: unspecified URI Qualified Code(s): J06.9 - Acute upper respiratory infection, unspecified Chest pain Qualifiers: Chest pain type: other chest pain Qualified Code(s): R07.89 - Other chest pain; R07.8 - Other chest pain Dyspnea Qualifiers: Dyspnea type: shortness of breath Qualified Code(s): R06.02 - Shortness of breath; R06.00 - Dyspnea, unspecified; R06.01 - Orthopnea Condition: Stable Disposition: HOME, SELF-CARE Additional Instructions: Patient was provided with discharge information including: As a person under investigation for Covid 19, the [place] Department of Health and Human Services, division of public health advises you to adhere to the following guidance until your test results are reported to you. If your test result is positive, you will receive additional information from your provider in your local health department at that time. Remain at home until you are cleared by the health provider or public health authorities. Keep a log of visitors to your home, notify any visitors to your home with your isolation status. If you plan to move to a new address or leave the county, notify the local health department in your County. Call your doctor or seek care if you have an urgent medical need. Before seeking medical care, call ahead to get instructions from the provider before arriving at the medical office clinic or hospital. Notify them that you are being tested for the virus that causes Covid 19 so that arrangements can be made as necessary to prevent transmission to others in the healthcare setting. Next, notify the local health department and your County. If you medical emergency arises and you need to call 911, inform the first responders that you are being tested for the virus that causes Covid 19. Next, notify the local health department and your County Referrals: KAILEE MILLS, DO [Primary Care Provider] - Follow up as needed
[2019-12-29 09:52] LABS: A TYPE INFLUENZA AG NEGATIVE (NEGATIVE); B INFLUENZA AG NEGATIVE (NEGATIVE)
== END 2019-12-29 09:38 | disposition home or self-care (01) ==
LOC: EDRDC 08:38
DX: J06.9 Acute upper respiratory infection, unspecified (principal); R06.02 Shortness of breath; R07.9 Chest pain, unspecified; R07.89 Other chest pain; R06.2 Wheezing; Z20.828 Contact with and (suspected) exposure to other viral communicable diseases
CPT/HCPCS: 87070; 87635; 87804; 87880; 99211

== ENCOUNTER 2019-12-29 10:03 | Emergency (ER) | payer BC ==
[2019-12-29] MEDS ORDERED: BENZONATATE 100 MG CAPSULE PO ONE (10:32)
[2019-12-29] MEDS ORDERED: TERBUTALINE SULFATE INJ/PF 1 MG/1 ML SDV SUBCUT ONE ×2 (10:32→11:44)
[2019-12-29 10:35] LABS: ABSOLUTE BASOPHILS # (AUTO) 0.1 10^3/uL (0.0-0.2); ABSOLUTE EOSINOPHILS # (AUTO) 0.2 10^3/uL (0.0-0.6); ABSOLUTE LYMPHOCYTES (AUTO) 3.4 10^3/uL (0.5-4.7); ABSOLUTE MONOCYTES (AUTO) 0.5 10^3/uL (0.1-1.4); ABSOLUTE NEUT (AUTO) 5.3 10^3/uL (1.7-8.2); BASOPHILS % (AUTO) 0.6 % (0-2); EOSINOPHILS % (AUTO) 2.3 % (0-6); HEMATOCRIT 39.8 % (36.0-47.0); HEMOGLOBIN 13.9 g/dL (12.0-15.5); LYMPHOCYTES % (AUTO) 36.2 % (13-45); MEAN CORPUSCULAR HEMOGLOBIN 29.3 pg (27.0-33.4); MEAN CORPUSCULAR HGB CONC 34.9 g/dL (32.0-36.0); MEAN CORPUSCULAR VOLUME 84 fl (80-97); MONOCYTES % (AUTO) 5.3 % (3-13); PLATELET COUNT 233 10^3/uL (150-450); RED BLOOD COUNT 4.74 10^6/uL (3.72-5.28); SEGMENTED NEUTROPHILS % (AUTO) 55.6 % (42-78); TOTAL CELLS COUNTED % (AUTO) 100 %; WHITE BLOOD COUNT 9.5 10^3/uL (4.0-10.5)
[2019-12-29 10:53] LABS: ALBUMIN 4.2 g/dL (3.5-5.0); ALKALINE PHOSPHATASE 114 U/L (38-126); ANION GAP 7 (5-19); ASPARTATE AMINO TRANSFERASE 28 U/L (14-36); BILIRUBIN,DIRECT 0.1 mg/dL (0.0-0.4); BILIRUBIN,TOTAL 0.3 mg/dL (0.2-1.3); BLOOD UREA NITROGEN 10 mg/dL (7-20); CALCIUM 9.3 mg/dL (8.4-10.2); CARBON DIOXIDE 25 mmol/L (22-30); CHLORIDE 104 mmol/L (98-107); CREATINE KINASE 54 U/L (30-135); GLUCOSE 102 mg/dL (75-110); TOTAL PROTEIN 7.2 g/dL (6.3-8.2)
[2019-12-29] MEDS: MAGNESIUM SULFATE/D5W 1 GM/100 ML RTUPB IV SCH ×2 (10:54→11:50)
[2019-12-29 11:01] LABS: CREATINE KINASE MB 0.79 ng/mL (<4.55)
--- NOTE | 2019-12-29 11:02 | ER Document Report ---
ED Cardiac - General Chief Complaint: Chest Pain Stated Complaint: CHEST PAIN Time Seen by Provider: 12/29/19 10:08 Primary Care Provider: KAILEE MILLS DO [Primary Care Provider] - Follow up in 1 week Notes: Patient is a 54-year-old female with a history of hyper lipidemia and hypertension who presents the emergency department with a cough and shortness of breath. Patient states that she had a fever of 100.4 the other day. Patient is unsure of whether or not she has had exposure to someone with COVID 19. Patient states that she is generally not feeling well and just wants to sleep. 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 Patient was seen at the [facility] clinic earlier today and was referred here to the emergency department. She was tested for COVID 19. TRAVEL OUTSIDE OF THE [place] IN LAST 30 DAYS: No - Related Data Allergies/Adverse Reactions: hydrocodone [From Vicodin] Allergy (Verified 03/06/19 02:21) shellfish derived Allergy (Verified 10/04/19 09:30) Past Medical History - Social History Smoking Status: Former Smoker Chew tobacco use (# tins/day): No Drug Abuse: None Family History: Hypertension Patient has suicidal ideation: No Patient has homicidal ideation: No - Past Medical History Cardiac Medical History: Reports: Hx Congestive Heart Failure, Hx Heart Attack, Hx Hypercholesterolemia, Hx Hypertension, Hx Heart Murmur Denies: Hx Atrial Fibrillation, Hx Coronary Artery Disease, Hx DVT, Hx Pulmonary Embolism Pulmonary Medical History: Reports: Hx Sleep Apnea - Probable but sleep study is still pending Denies: Hx Asthma, Hx Bronchitis, Hx COPD, Hx Pneumonia, Hx Respiratory Failure Neurological Medical History: Reports: Hx Cerebrovascular Accident, Hx Seizures Endocrine Medical History: Denies: Hx Diabetes Mellitus Type 1, Hx Diabetes Mellitus Type 2, Hx Hyperthyroidism, Hx Hypothyroidism Renal/ Medical History: Denies: Hx Peritoneal Dialysis GI Medical History: Denies: Hx Cirrhosis, Hx Crohn's Disease, Hx Hepatitis, Hx Ulcerative Colitis Musculoskeletal Medical History: Reports Hx Arthritis - RA, Denies Hx Gout Skin Medical History: Denies Hx Eczema, Denies Hx Psoriasis Infectious Medical History: Denies: Hx Hepatitis Past Surgical History: Reports: Hx Genitourinary Surgery - bladder suspension, Hx Hysterectomy, Hx Orthopedic Surgery - elbow - Immunizations Hx Diphtheria, Pertussis, Tetanus Vaccination: No Review of Systems - Review of Systems Notes: REVIEW OF SYSTEMS: CONSTITUTIONAL : Denies recent illness. Denies recent unintentional weight loss. See HPI. EENT: Denies eye, ear, throat, or mouth pain, discharge, or symptoms. Denies nasal or sinus congestion. CARDIOVASCULAR: Denies chest pain. RESPIRATORY: See HPI. GASTROINTESTINAL: Denies nausea, vomiting, and diarrhea. Denies abdominal pain. Denies constipation. GENITOURINARY: Denies difficulty urinating, burning, blood in urine, urgency or frequency. MUSCULOSKELETAL: Denies neck and back pain. Denies joint pain or swelling. SKIN: Denies rash, itchiness, or lesions HEMATOLOGIC : Denies easy bruising or bleeding. LYMPHATIC: Denies swollen, painful, enlarged glands. NEUROLOGICAL: Denies no numbness or tingling denies weakness. Denies headache. Denies altered mental status. Denies alteration in speech. PSYCHIATRIC: Denies stress, anxiety, alteration in sleep patterns, or depression. All other systems reviewed and negative. Physical Exam - Vital signs Vitals: Temp Pulse Resp BP Pulse Ox 98.4 F 67 24 H 190/158 H 100 12/29/19 10:15 12/29/19 10:15 12/29/19 10:15 12/29/19 10:15 12/29/19 10:15 - Notes Notes: PHYSICAL EXAMINATION: GENERAL: Appears well, healthy, well-nourished, no acute distress. HEAD: Normocephalic, atraumatic. EYES: PERRL, conjunctiva normal, all extraocular movements intact, sclera nonicteric ENT: Moist mucous membranes. NECK: Supple, no noticeable swelling, redness, rash. Normal range of motion. LUNGS: Equal breath sounds bilaterally and clear to auscultation. No wheezes rales or rhonchi. CARDIOVASCULAR: S1-S2, regular rate, regular rhythm. Radial pulses 2+, normal. ABDOMEN: Normoactive bowel sounds. Soft, nontender, no guarding, no rebound tenderness, and no masses palpated. EXTREMITIES: Normal strength and range of motion, no pitting or edema. No cyano sis. NEUROLOGICAL: Moves all extremities upon command. Strength 5/5 in all extremities. PSYCH: Normal mood, normal affect. SKIN: Warm, dry. No rash, lesions, ulcerations noted. Normal skin turgor. Course - Re-evaluation Re-evalutation: 12/29/19 12:28 Patient's chest x-ray is normal. Her hematology is unremarkable. No coleen kocytosis noted. Patient states that she feels better after receiving 2 doses of terbutaline and magnesium. Troponin is negative. Lactate dehydrogenase and ferritin is normal. Patient already has a COVID 19 test pending from the [facility] clinic. Although she was already tested for coven 19, very low suspicion for coronavirus in this patient. Patient will be started on prednisone, Flonase, Tessalon Perles, and acute sinusitis. When I reevaluated the patient, the patient stated that she had frontal sinus pressure for the past week and a half. She also has better sounding lung sounds after 2 doses of terbutaline. Instructed the patient to continue albuterol. She will follow-up with her [facility] provider. She is in agreement with this plan. Follow-up precautions were given. Verbal discharge instructions were given to the patient. They verbalized understanding. They are stable for discharge. - Vital Signs Vital signs: Temp Pulse Resp BP Pulse Ox 98.4 F 67 19 196/78 H 99 12/29/19 10:22 12/29/19 10:15 12/29/19 12:02 12/29/19 12:02 12/29/19 12:02 - Laboratory Result Diagrams: 12/29/19 10:15 12/29/19 10:15 Laboratory results interpreted by me: 12/29/19 12/29/19 10:15 10:15 RDW 16.0 H Sodium 136.4 L - EKG Interpretation by Me Additional EKG results interpreted by me: 12/29/19 12:34 Sinus rhythm. Rate 67. OH 164; QRS 102; QT 456; QTc 482. No ST elevation or depression noted. No change from previous EKG done on 11/19/2019. Discharge - Discharge Clinical Impression: Cough, Shortness of breath, Suspected COVID-19 virus infection Acute sinusitis Qualifiers: Sinusitis location: frontal Recurrence: non-recurrent Qualified Code(s): J01.10 - Acute frontal sinusitis, unspecified Condition: Stable Disposition: HOME, SELF-CARE Additional Instructions: You were seen today in the emergency department for a cough, shortness of bandar th, fever, and sinus pressure. You are being placed on antibiotics for your sinus infection. Use Flonase daily to help with your cough and use Tessalon Perles as needed. Take your steroids as prescribed. Follow-up with your primary care provider in regards to this visit. Prescriptions: Benzonatate [Tessalon Perles 100 mg Capsule] 100 mg PO Q8HP PRN #40 capsule PRN Reason: Amoxicillin/Potassium Clav [Augmentin 875-125 Tablet] 1 tab PO BID #20 tab Prednisone [Deltasone 20 mg Tablet] 3 tab PO DAILY 5 Days #15 tablet Fluticasone Propionate [Flonase Nasal [place] 50 Mcg/[place] 16 gm] 2 sprays NASL DAILY #1 inhaler Forms: Return to Work Referrals: KAILEE MILLS DO [Primary Care Provider] - Follow up in 1 week
[2019-12-29 11:05] LABS: TROPONIN I < 0.012 ng/mL
[2019-12-29 11:43] LABS: FERRITIN 14.1 ng/mL (11.1-264.0)
--- NOTE | 2019-12-29 11:53 | RADIOLOGY REPORT (SQ) ---
EXAM DESCRIPTION: CHEST SINGLE VIEW IMAGES COMPLETED DATE/TIME: 12/29/2019 11:43 am REASON FOR STUDY: cough COMPARISON: 11/18/2019 EXAM PARAMETERS: NUMBER OF VIEWS: One view. TECHNIQUE: Single frontal radiographic view of the chest acquired. RADIATION DOSE: NA LIMITATIONS: None. FINDINGS: LUNGS AND PLEURA: No opacities, masses or pneumothorax. No pleural effusion. MEDIASTINUM AND HILAR STRUCTURES: Fullness along the right hilar and mediastinal border but the patie nt is significantly rotated. This would account for the findings. HEART AND VASCULAR STRUCTURES: Heart normal in size. Normal vasculature. BONES: No acute findings. HARDWARE: None in the chest. OTHER: No other significant finding. IMPRESSION: NO ACUTE RADIOGRAPHIC FINDING IN THE CHEST. TECHNICAL DOCUMENTATION: JOB ID: [id number] 2010 [email or web address]- All Rights Reserved Reading location - IP/workstation name: [email or web address]
[2019-12-29 12:15] VITALS: BP 196/78
--- NOTE | 2019-12-29 21:46 | EKG REPORT ---
SEVERITY:- BORDERLINE ECG - SINUS RHYTHM PROBABLE LEFT ATRIAL ABNORMALITY : Confirmed by: Aditi Myers MD 29-Dec-2019 21:45:56
== END 2019-12-29 12:55 | disposition home or self-care (01) ==
LOC: ER 10:03
DX: J01.10 Acute frontal sinusitis, unspecified (principal); R07.9 Chest pain, unspecified; Z20.828 Contact with and (suspected) exposure to other viral communicable diseases; E78.5 Hyperlipidemia, unspecified; I50.9 Heart failure, unspecified; I11.0 Hypertensive heart disease with heart failure; Z90.710 Acquired absence of both cervix and uterus
CPT/HCPCS: 93005; 99285; 96372; 96365; 36415; 82553; 82550; 82728; 83615; 85025; 80053; 84484; 71045; 93010; J3475; J3105

== ENCOUNTER → 2020-03-28 | Outpatient (CLI) | payer BC ==
--- NOTE | 2020-03-28 16:07 | RADIOLOGY REPORT (SQ) ---
EXAM DESCRIPTION: U/S RETROPERITON (RENAL/AORTA) IMAGES COMPLETED DATE/TIME: 03/28/2020 2:09 pm REASON FOR STUDY: Z87.448 PERSONAL HISTORY OF OTHER DISEASES OF URINARY SYSTEM Z87.448 PERSONAL HIS TORY OF OTHER DISEASES OF URINARY SYSTEM. Reported history of renal cyst. COMPARISON: None. TECHNIQUE: Dynamic and static grayscale images acquired of the kidneys and bladder and recorded on P ACS. Additional selected color Doppler and spectral images recorded. LIMITATIONS: None. FINDINGS: RIGHT KIDNEY: Normal size. Normal echogenicity. No solid or suspicious masses. No hydronep hrosis. No calcifications. LEFT KIDNEY: Normal size. Normal echogenicity. No solid or suspicious masses. No hydronephrosis. No calcifications. BLADDER: No masses. OTHER FINDINGS: Moderate hepatic steatosis is noted. IMPRESSION: No sonographic abnormality of the kidneys or urinary bladder. Moderate hepatic steatosi s. TECHNICAL DOCUMENTATION: JOB ID: [id number] 2010 [employer]- All Rights Reserved Reading location - IP/workstation name: [email or web address]
== END ==
LOC: RAD 14:40
PROVIDERS: ATTEND Nurse Practitioner Family
DX: I10 Essential (primary) hypertension (principal); Z87.448 Personal history of other diseases of urinary system; K76.0 Fatty (change of) liver, not elsewhere classified
CPT/HCPCS: 76770

== ENCOUNTER → 2020-04-01 | Outpatient (CLI) | payer BC ==
--- NOTE | 2020-04-01 17:16 | RADIOLOGY REPORT (SQ) ---
EXAM DESCRIPTION: MRI HEAD COMBO IMAGES COMPLETED DATE/TIME: 04/01/2020 11:26 am REASON FOR STUDY: (R51)HEADACHE R51 HEADACHE. Dizziness, lightheadedness, nausea, vomiting, light sensitivity, vision and hearing problems for years, worse recently. Migraine headaches. History of hypertension. COMPARISON: None. TECHNIQUE: Multiplanar imaging includes noncontrasted T1, T2, FLAIR, diffusion with ADC map and post gadolinium contrast T1 sequences. Images stored on PACS. CONTRAST TYPE AND DOSE: 20 mL Prohance. RENAL FUNCTION: Not indicated. ACR Type II contrast agent associated with few, if any, unconfounded cases of NSF LIMITATIONS: None. FINDINGS: ANATOMY: No anomalies. Normal vascular flow voids. Pituitary fossa normal. CSF SPACES: Normal in size and contour. No hemorrhage. CEREBRUM: Sulci and gyri normal in size and contour. Normal white matter signal on FLAIR imaging. No evidence of hemorrhage, mass, or extraaxial fluid collection. No abnormal enhancement post contrast. POSTERIOR FOSSA: No signal alteration. No hemorrhage. No edema, masses, or mass effect. Internal christoph tory canals, cerebellopontine angles, mastoids normal. No enhancing lesions. No abnormal enhancement post contrast. DIFFUSION IMAGING: Negative for acute or subacute infarction. ORBITS: No masses. Globes normal. PARANASAL SINUSES: No fluid levels. Mucosa normal. OTHER: No other significant finding. IMPRESSION: NORMAL MRI OF THE BRAIN WITHOUT AND WITH INTRAVENOUS GADOLINIUM CONTRAST. EVIDENCE OF ACUTE STROKE: NO. TECHNICAL DOCUMENTATION: JOB ID: [id number] 2010 [email or web address]- All Rights Reserved Reading location - IP/workstation name: [email or web address]
== END ==
LOC: RAD 11:23
PROVIDERS: ATTEND Nurse Practitioner Family
DX: R51 Headache (principal)
CPT/HCPCS: 82565; 70553; A9576